=== PATIENT | male | born 1955 | race Caucasian/White ===

== ENCOUNTER → 2023-09-03 09:28 | Outpatient (CLI) | payer OTHER, SELFPAY | PROVIDERS: Visit Provider Nurse Practitioner Family | DX: T14.8XXA Other injury of unspecified body region, initial encounter (principal) | CPT/HCPCS: 87070; 87075; 87205 ==

== ENCOUNTER → 2023-09-04 08:32 | Outpatient (CLI) | payer OTHER, SELFPAY | PROVIDERS: Referring Provider Nurse Practitioner Family; Visit Provider Surgery | DX: L98.422 Non-pressure chronic ulcer of back with fat layer exposed (principal); E10.622 Type 1 diabetes mellitus with other skin ulcer | CPT/HCPCS: 11042; 99203; 99213 ==

== ENCOUNTER → 2023-09-15 10:15 | Outpatient (CLI) | payer OTHER, SELFPAY | PROVIDERS: PCP Internal Medicine; Referring Provider Nurse Practitioner Family; Visit Provider Surgery | DX: L98.422 Non-pressure chronic ulcer of back with fat layer exposed (principal); E10.622 Type 1 diabetes mellitus with other skin ulcer | CPT/HCPCS: 99213 ==

== ENCOUNTER → 2023-09-17 06:45 | Outpatient (CLI) | payer OTHER, SELFPAY ==
[2023-09-17 08:15] LABS: Hematocrit 42.3 % (41-53); Hemoglobin 14.7 g/dL (13.5-17.5); Mean Corpuscular HGB Conc 34.6 % (30-36); Mean Corpuscular Hemoglobin 30.1 PG (26-34); Mean Corpuscular Volume 86.8 fL (80-100); Platelet Count 293 X10^3/uL (150-400); Red Blood Cell Count 4.88 X10^6/uL (4.5-5.9); Red Cell Distribution Width 14.1 % (11.6-14.8); White Blood Cell Count 7.5 X10^3/uL (4.5-11.0)
[2023-09-17 08:25] LABS: Hemoglobin A1C% w Est Avg Glu 7.3 % (4.0-6.0)
[2023-09-17 08:37] LABS: Alanine Aminotransferase 21 IU/L (<50); Albumin 3.8 g/dL (3.5-5.0); Albumin Globulin Ratio 1.7 (1.0-2.8); Alkaline Phosphatase 105 U/L (38-126); Aspartate Aminotransferase 30 IU/L (17-59); BUN Creatinine Ratio 17.6 (6-22); Bilirubin Total 1.2 mg/dL (0.2-1.3); Blood Urea Nitrogen 18 mg/dL (9-20); Calcium 9.1 mg/dL (8.4-10.2); Carbon Dioxide 28 mmol/L (22-32); Chloride 103 mmol/L (98-107); Cholesterol 148 mg/dL (140-199); Estimated Glomerular Filt Rate > 60 mL/min (>60); Globulin 2.3 g/dL (1.7-4.1); Glucose 204 mg/dL (80-110); HDL Cholesterol 61 mg/dL (40-60); HEMOLYSIS < 15 (0-50); LDL Cholesterol Calculated 68 mg/dL (<100); Potassium 4.7 mmol/L (3.4-5.1); Sodium 137 mmol/L (137-145); Total Protein 6.1 g/dL (6.3-8.2); Triglycerides 96 mg/dL (35-150)
[2023-09-17 08:54] LABS: Creatinine Urine Random 122.7 mg/dL
[2023-09-17 08:59] LABS: Microalbumi Creatinin Ratio Ur 8.1 ug/mg CR (<30)
[2023-09-17 09:03] LABS: Prostate Specific Antigen 1.76 ng/mL (0.10-4.00)
== END ==
PROVIDERS: PCP Internal Medicine; Referring Provider Internal Medicine; Visit Provider Internal Medicine
DX: N40.1 Benign prostatic hyperplasia with lower urinary tract symptoms (principal); N13.8 Other obstructive and reflux uropathy; E78.2 Mixed hyperlipidemia; I10 Essential (primary) hypertension; E10.69 Type 1 diabetes mellitus with other specified complication; E78.5 Hyperlipidemia, unspecified
CPT/HCPCS: 36415; 80053; 80061; 82043; 82570; 83036; 84153; 85027

== ENCOUNTER → 2023-09-29 08:44 | Outpatient (CLI) | payer OTHER, SELFPAY | PROVIDERS: PCP Internal Medicine; Referring Provider Nurse Practitioner Family; Visit Provider Surgery | DX: L98.422 Non-pressure chronic ulcer of back with fat layer exposed (principal); E10.622 Type 1 diabetes mellitus with other skin ulcer | CPT/HCPCS: 99212; 99213 ==

== ENCOUNTER → 2024-01-21 12:20 | Outpatient (CLI) | payer OTHER, SELFPAY ==
--- NOTE | 2024-01-21 | DI.RAD.S_ITS ---
PROCEDURE: XR ANKLE RT MIN 3V INDICATIONS: PAIN TECHNIQUE: 3 views of the ankle were acquired. COMPARISON: None. FINDINGS: Bones: Post ORIF changes are noted in distal fibular shaft. Postfusion changes at tibiotalar joint is seen with near complete bony union. No gross hardware loosening or failure is seen. Osteoarthritic changes are noted throughout rest of the midfoot and hindfoot. No fractures or dislocations. No suspicious bony lesions. Soft tissues: No abnormal soft tissue calcifications. Achilles tendon appears normal. IMPRESSION: Prior fusion of tibiotalar joint with near complete bony union. Prior internal fixation of fibular shaft. No gross hardware loosening or failure. No acute fracture or dislocation. Moderate midfoot and hindfoot joint osteoarthritis. Dictated by: Ted Montano M.D. on 01/21/2024 at 14:38 Approved by: Ted Montano M.D. on 01/21/2024 at 14:39
--- NOTE | 2024-01-21 | DI.RAD.S_ITS ---
PROCEDURE: XR ANKLE LT MIN 3V INDICATIONS: PAIN DUE TO INTERNAL ORTHOPEDIC PROSTHETIC DEVICES TECHNIQUE: 3 views of the ankle were acquired. COMPARISON: None. FINDINGS: Bones: No fractures or dislocations. Osteoarthritic changes are noted throughout midfoot and hindfoot joints. Ankle mortise is normally aligned. No suspicious bony lesions. Soft tissues: No tibiotalar joint effusion. Achilles tendon appears normal. IMPRESSION: No ankle fracture or dislocation. Ankle mortise is congruent. [id number] midfoot and hindfoot joint osteoarthritis more notably involving tibiotalar joint. Dictated by: Ted Montano M.D. on 01/21/2024 at 14:31 Approved by: Ted Montano M.D. on 01/21/2024 at 14:32
--- NOTE | 2024-01-21 | DI.RAD.S_ITS ---
PROCEDURE: XR FOOT RT MIN 3V INDICATIONS: PAIN TECHNIQUE: 3 views of the foot were acquired. COMPARISON: None. FINDINGS: Bones: Postfusion changes at 1st MTP joint are seen with near complete bony union. Postsurgical changes also noted in tibiotalar joint and distal fibular shaft. No gross hardware loosening or failure. Osteoarthritic changes are noted throughout rest of the right foot. No acute fracture or dislocation. No suspicious bony lesions. Soft tissues: No tibiotalar joint effusion. Achilles tendon appears normal. IMPRESSION: Postsurgical changes in great toe and ankle joints. Osteoarthritic changes throughout rest of the right foot. No acute fracture or dislocation. No gross hardware loosening or failure. Dictated by: Ted Montano M.D. on 01/21/2024 at 14:39 Approved by: Ted Montano M.D. on 01/21/2024 at 14:40
--- NOTE | 2024-01-21 | DI.RAD.S_ITS ---
PROCEDURE: XR FOOT LT MIN 3V INDICATIONS: PAIN DUE TO INTERNAL OTHOPEDIC PROSTHETIC DEVICES TECHNIQUE: 3 views of the foot were acquired. COMPARISON: None. FINDINGS: Bones: There is mild to moderate hallux valgus. Osteoarthritic changes are noted throughout left foot more notably involving 1st MTP joint and 2nd through 5th DIP joints. No fractures or dislocations. No suspicious bony lesions. Soft tissues: No tibiotalar joint effusion. Achilles tendon appears normal. IMPRESSION: [id number] hallux valgus. Left foot osteoarthritis as above. No acute fracture or dislocation. No gross soft tissue abnormalities. Dictated by: Ted Montano M.D. on 01/21/2024 at 14:32 Approved by: Ted Montano M.D. on 01/21/2024 at 14:38
== END ==
PROVIDERS: PCP Internal Medicine; Referring Provider Podiatrist Foot & Ankle Surgery; Visit Provider Podiatrist Foot & Ankle Surgery
DX: T84.84XD Pain due to internal orthopedic prosthetic devices, implants and grafts, subsequent encounter (principal); M20.12 Hallux valgus (acquired), left foot; M19.072 Primary osteoarthritis, left ankle and foot; M19.071 Primary osteoarthritis, right ankle and foot; Z98.1 Arthrodesis status
CPT/HCPCS: 73610; 73630

== ENCOUNTER → 2024-02-02 06:43 | Outpatient (CLI) | payer OTHER, SELFPAY ==
[2024-02-02 08:04] LABS: Hemoglobin A1C% w Est Avg Glu 6.7 % (4.0-6.0)
[2024-02-02 08:22] LABS: BUN Creatinine Ratio 16.5 (6-22); Blood Urea Nitrogen 17 mg/dL (9-20); Calcium 8.8 mg/dL (8.4-10.2); Carbon Dioxide 31 mmol/L (22-32); Chloride 104 mmol/L (98-107); Estimated Glomerular Filt Rate > 60 mL/min (>60); Glucose 155 mg/dL (80-110); HEMOLYSIS < 15 (0-50); Potassium 4.1 mmol/L (3.4-5.1); Sodium 138 mmol/L (137-145)
== END ==
PROVIDERS: PCP Internal Medicine; Referring Provider Internal Medicine; Visit Provider Internal Medicine
DX: E10.69 Type 1 diabetes mellitus with other specified complication (principal); E78.5 Hyperlipidemia, unspecified
CPT/HCPCS: 36415; 80048; 83036

== ENCOUNTER → 2024-09-08 17:11 | Outpatient (CLI) | payer OTHER, SELFPAY ==
--- NOTE | 2024-09-08 17:13 | DI.MRI.S_ITS ---
PROCEDURE: MR FOOT RT WO CON INDICATIONS: PAIN IN RT FOOT TECHNIQUE: Multiphasic, multisequence MRI of the forefoot was performed, without intravenous contrast administration. COMPARISON: [facility], CR, XR FOOT RT MIN 3V, 01/21/2024, 12:41. FINDINGS: Image quality: Excellent. Bones and joints: Susceptibility artifact about the 1st metatarsal head, postprocedural. Solid osseous fusion of the 1st metatarsal phalangeal joint. There is mild degenerative changes of the 2nd metatarsophalangeal joint, with mild subchondral marrow edema. Somewhat linear T2 hyperintensity in the 5th metatarsal diaphysis without T1 cord, nonspecific. Moderate degenerative changes at the navicular and cuboid articulation, and the talonavicular articulation. Additional multifocal mild degenerative changes of the midfoot. Susceptibility artifact about the ankle, favoring postprocedural, incompletely visualized. Soft tissues: The visualized plantar fascia is unremarkable. Mild tenosynovitis of the flexor tendon at the master knot of Ivan. The extensor tendon are unremarkable. Severe fatty atrophy of the intrinsic musculature of the foot. T2 hyperintensity of the Lisfranc ligament, likely representing mild sprain. Mild 2nd intermetatarsal bursitis. IMPRESSION: 1. Postprocedure changes in the 1st metatarsal head with solid osseous fusion of the 1st metatarsophalangeal joint. 2. Moderate degenerative changes of the navicular and cuboid articulation, and the talonavicular articulation. Additional mild degenerative changes in the midfoot and the 2nd metatarsophalangeal joint. 3. Severe muscle fatty atrophy. 4. Mild sprain of the Lisfranc ligament. Dictated by: Karla Corley M.D. on 09/09/2024 at 9:41 Approved by: Karla Corley M.D. on 09/09/2024 at 9:51
== END ==
LOC: MRI 17:12
PROVIDERS: PCP Internal Medicine; Referring Provider Podiatrist Foot & Ankle Surgery; Visit Provider Podiatrist Foot & Ankle Surgery
DX: S93.691A Other sprain of right foot, initial encounter (principal); M62.571 Muscle wasting and atrophy, not elsewhere classified, right ankle and foot; G57.61 Lesion of plantar nerve, right lower limb; M79.671 Pain in right foot; Z98.890 Other specified postprocedural states
CPT/HCPCS: 73718

== ENCOUNTER 2024-10-06 05:01 | Inpatient (IN) | payer OTHER, MEDICARE, SELFPAY ==
[2024-10-06] VITALS (18 sets, daily range): BP systolic 137–191; BP diastolic 66–96; PULSE 48–65; RESP 16–22; TEMP 36–36.6; O2SAT 93–98; BMI 28.2; BMI 28.3
--- NOTE | 2024-10-06 05:12 | DI.RAD.S_ITS ---
PROCEDURE: XR CHEST 1V INDICATIONS: MIDEPIGASTRIC PAIN TECHNIQUE: One view of the chest was acquired. COMPARISON: None. FINDINGS: Surgical changes and devices: Right pulse generator. Lungs and pleura: Low lung volumes. No dense consolidation or pleural effusions. Mediastinum: Normal heart size. No free air under hemidiaphragms on this semi-erect view. Bones and chest wall: Degenerative changes IMPRESSION: Low lung volumes. No acute abnormality on this single view study. Agree with preliminary report. Dictated by: Simba Shook M.D. on 10/06/2024 at 7:36 Approved by: Simba Shook M.D. on 10/06/2024 at 7:37
--- NOTE | 2024-10-06 05:12 | EKG_ITS ---
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
--- NOTE | 2024-10-06 05:12 | ED_ITS ---
HPI - Abdominal Pain <Lisa Vincent MD - Last Filed: 10/06/24 17:53> General Chief Complaint: Abdominal Pain Stated Complaint: abd pain Time Seen by Provider: 10/06/24 05:05 History of Present Illness HPI narrative: 69-year-old male with history of type 1 diabetes, GERD, history of seizure disorder (reports 13 years seizure free on lamotrigine) presents by private vehicle from home for approximately 3 hours of severe constant midepigastric burning abdominal pain that does not radiate. Pain woke him up from sleep, not alleviated with Pepto-Bismol or Gas-X. Has never had pain like this before. Denies previous history of abdominal surgeries. Related Data Home Medications Medication Instructions Recorded Confirmed lamotrigine 200 mg tablet 200 mg PO BID 09/03/23 10/06/24 blood sugar diagnostic (Accu-Chek #10 ea 09/15/23 10/06/24 Guide test strips) pantoprazole 20 mg tablet,delayed 20 mg PO BID 04/26/24 10/06/24 release insulin aspart U-100 100 unit/mL See Rx Instructions .Route .COMPLEX 10/06/24 10/06/24 subcutaneous cartridge (Novolog PenFill U-100 Insulin aspart) Previous Rx's Medication Instructions Recorded tamsulosin 0.4 mg capsule 0.8 mg (2 x 0.4 mg) PO BEDTIME 10/27/23 #180 caps lisinopril 20 mg tablet 20 mg PO BID #180 tabs 11/30/23 rosuvastatin 5 mg tablet 5 mg PO DAILY #90 tabs 01/18/24 atenolol 25 mg tablet 25 mg PO DAILY #90 tabs 02/25/24 scopolamine base 1 mg over 3 days 1 patch transdermal Q72H PRN 03/09/24 transdermal patch motion sickness #4 ea sildenafil (pulm.hypertension) 20 20 - 100 mg (1 - 5 x 20 mg) PO 07/18/24 mg tablet DAILY PRN sexual activity #30 tabs Allergies Allergy/AdvReac Type Severity Reaction Status Date / Time codeine AdvReac Mild Nausea Verified 09/09/24 13:11 tramadol AdvReac Mild lower Verified 09/09/24 13:11 seizure threshold Patient History <Lisa Vincent MD - Last Filed: 10/06/24 17:53> Medical History Urinary frequency Nocturia Obstructive sleep apnea Chronic low back pain Overweight Type 1 diabetes mellitus with hyperlipidemia GERD without esophagitis Erectile dysfunction 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 Mixed hyperlipidemia Essential hypertension 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: , 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: Never smoker alcohol intake: never Smoking Status: Never smoker Exam <Lisa Vincent MD - Last Filed: 10/06/24 17:53> Initial Vital Signs Initial Vital Signs: Vital Signs Temperature 97.8 F 10/06/24 05:09 Pulse Rate 58 L 10/06/24 05:09 Respiratory Rate 22 10/06/24 05:09 Blood Pressure 191/96 H 10/06/24 05:09 Pulse Oximetry 97 10/06/24 05:09 Oxygen Delivery Method Room Air 10/06/24 05:09 Const: Awake, alert, uncomfortable, in pain, nontoxic appearing Cardiac: regular rate, regular rhythm RESP: unlabored, clear bilaterally, no wheezing GI: Soft, midepigastric tenderness to deep palpation, no rebound or guarding Skin: Warm, Dry, intact, no rashes Neuro: AO x3, CN II-XII grossly intact, moves all extremities <Leandro Cuevas DO - Last Filed: 10/06/24 09:29> Initial Vital Signs Initial Vital Signs: Vital Signs Temperature 97.8 F 10/06/24 05:09 Pulse Rate 58 L 10/06/24 05:09 Respiratory Rate 22 10/06/24 05:09 Blood Pressure 191/96 H 10/06/24 05:09 Pulse Oximetry 97 10/06/24 05:09 Oxygen Delivery Method Room Air 10/06/24 05:09 Course <Lisa Vincent MD - Last Filed: 10/06/24 17:53> Orders Ordered: Atenolol (Atenolol 25 Mg Tablet) 25 mg PO BEDTIME ELAINA Sodium Chloride (Normal Saline 0.9%) 1,000 mls @ 100 mls/hr IV CONT ELAINA Last Admin: 10/06/24 11:25 Dose: 100 mls/hr Documented By: BARI Dextrose (D10w) 1,000 mls @ 100 mls/hr IV CONT PRN PRN Reason: Hypoglycemia Lamotrigine (Lamotrigine 100 Mg Tablet) 200 mg PO BID [facility] Last Admin: 10/06/24 13:13 Dose: 200 mg Documented By: TIFFANY Lisinopril (Lisinopril 20 Mg Tablet) 20 mg PO BID [facility] Last Admin: 10/06/24 13:13 Dose: 20 mg Documented By: TIFFANY Morphine Sulfate (Morphine 4 Mg/Ml Inj) 4 mg IV PRN PRN PRN Reason: Pain, Moderate (4-6) Last Admin: 10/06/24 07:44 Dose: 4 mg Documented By: MARIA GUADALUPE Morphine Sulfate (Morphine 2 Mg/Ml Inj) 2 mg IV Q2HR PRN PRN Reason: Pain, Moderate (4-6) Last Admin: 10/06/24 15:21 Dose: 2 mg Documented By: TIFFANY Naloxone HCl (Naloxone 0.4 Mg/Ml Vial) 0.2 mg IV Q2MIN PRN PRN Reason: Opiate Reversal Ondansetron HCl (Ondansetron 4 Mg/2 Ml Inj) 4 mg IV Q4HR PRN PRN Reason: nausea Last Admin: 10/06/24 15:23 Dose: 4 mg Documented By: TIFFANY Pantoprazole Sodium (Pantoprazole Dr 20 Mg Tablet) 20 mg PO BID [facility] Last Admin: 10/06/24 13:14 Dose: 20 mg Documented By: TIFFANY Tamsulosin HCl (Tamsulosin 0.4 Mg Capsule) 0.8 mg PO BEDTIME [facility] Discontinued Medications Atenolol (Atenolol 25 Mg Tablet) 25 mg PO DAILY [facility] Last Admin: 10/06/24 14:00 Dose: Not Given Documented By: TIFFANY Hydromorphone HCl (Hydromorphone 0.5 Mg Inj) 0.5 mg IV Q2H PRN PRN Reason: Pain, Severe (7-10) Last Admin: 10/06/24 13:54 Dose: 0.5 mg Documented By: TIFFANY Sodium Chloride (Normal Saline 0.9%) 1,000 mls @ 1,000 mls/hr IV BOLUS ONE Stop: 10/06/24 07:59 Last Infusion: 10/06/24 10:12 Dose: 1,000 mls/hr Documented By: Infusion: 10/06/24 08:45 Dose: 1,000 mls/hr Documented By: MARIA GUADALUPE Infusion: 10/06/24 07:47 Dose: 0 mls/hr Documented By: MARIA GUADALUPE Admin: 10/06/24 07:24 Dose: 1,000 mls/hr Documented By: MARIA GUADALUPE Lorazepam (Lorazepam 2 Mg/Ml Inj) 1 mg IV NOW ONE Stop: 10/06/24 06:55 Last Admin: 10/06/24 07:25 Dose: 1 mg Documented By: MARIA GUADALUPE Morphine Sulfate (Morphine 4 Mg/Ml Inj) 4 mg IV NOW ONE Stop: 10/06/24 05:12 Last Admin: 10/06/24 05:22 Dose: 4 mg Documented By: MADDIE Ondansetron HCl (Ondansetron 4 Mg/2 Ml Inj) 4 mg IV NOW ONE Stop: 10/06/24 05:12 Last Admin: 10/06/24 05:22 Dose: 4 mg Documented By: MADDIE Ondansetron HCl (Ondansetron 4 Mg/2 Ml Inj) 4 mg IV Q8HR PRN PRN Reason: Nausea And Vomiting Vital Signs Vital signs: Vital Signs - 8 hr 10/06/24 05:09 10/06/24 05:53 10/06/24 06:00 Temperature 97.8 F Pulse Rate 58 L 56 L 57 L Respiratory Rate 22 Blood Pressure 191/96 H Pulse Oximetry 97 95 93 Oxygen Delivery Method Room Air 10/06/24 06:06 10/06/24 06:06 10/06/24 06:30 Temperature Pulse Rate 54 L 56 L Respiratory Rate 18 Blood Pressure 152/78 H Pulse Oximetry 94 94 Oxygen Delivery Method Room Air 10/06/24 06:30 10/06/24 07:00 10/06/24 07:00 Temperature Pulse Rate 53 L Respiratory Rate Blood Pressure 139/74 155/80 H Pulse Oximetry 94 Oxygen Delivery Method 10/06/24 07:33 Temperature Pulse Rate 54 L Respiratory Rate Blood Pressure Pulse Oximetry 98 Oxygen Delivery Method <Leandro Cuevas DO - Last Filed: 10/06/24 09:29> Orders Ordered: Atenolol (Atenolol 25 Mg Tablet) 25 mg PO BEDTIME ELAINA Sodium Chloride (Normal Saline 0.9%) 1,000 mls @ 100 mls/hr IV CONT ELAINA Last Admin: 10/06/24 11:25 Dose: 100 mls/hr Documented By: BARI Dextrose (D10w) 1,000 mls @ 100 mls/hr IV CONT PRN PRN Reason: Hypoglycemia Lamotrigine (Lamotrigine 100 Mg Tablet) 200 mg PO BID [facility] Last Admin: 10/06/24 13:13 Dose: 200 mg Documented By: TIFFANY Lisinopril (Lisinopril 20 Mg Tablet) 20 mg PO BID [facility] Last Admin: 10/06/24 13:13 Dose: 20 mg Documented By: TIFFANY Morphine Sulfate (Morphine 4 Mg/Ml Inj) 4 mg IV PRN PRN PRN Reason: Pain, Moderate (4-6) Last Admin: 10/06/24 07:44 Dose: 4 mg Documented By: MARIA GUADALUPE Morphine Sulfate (Morphine 2 Mg/Ml Inj) 2 mg IV Q2HR PRN PRN Reason: Pain, Moderate (4-6) Last Admin: 10/06/24 15:21 Dose: 2 mg Documented By: TIFFANY Naloxone HCl (Naloxone 0.4 Mg/Ml Vial) 0.2 mg IV Q2MIN PRN PRN Reason: Opiate Reversal Ondansetron HCl (Ondansetron 4 Mg/2 Ml Inj) 4 mg IV Q4HR PRN PRN Reason: nausea Last Admin: 10/06/24 15:23 Dose: 4 mg Documented By: TIFFANY Pantoprazole Sodium (Pantoprazole Dr 20 Mg Tablet) 20 mg PO BID [facility] Last Admin: 10/06/24 13:14 Dose: 20 mg Documented By: TIFFANY Tamsulosin HCl (Tamsulosin 0.4 Mg Capsule) 0.8 mg PO BEDTIME [facility] Discontinued Medications Atenolol (Atenolol 25 Mg Tablet) 25 mg PO DAILY [facility] Last Admin: 10/06/24 14:00 Dose: Not Given Documented By: TIFFANY Hydromorphone HCl (Hydromorphone 0.5 Mg Inj) 0.5 mg IV Q2H PRN PRN Reason: Pain, Severe (7-10) Last Admin: 10/06/24 13:54 Dose: 0.5 mg Documented By: TIFFANY Sodium Chloride (Normal Saline 0.9%) 1,000 mls @ 1,000 mls/hr IV BOLUS ONE Stop: 10/06/24 07:59 Last Infusion: 10/06/24 10:12 Dose: 1,000 mls/hr Documented By: Infusion: 10/06/24 08:45 Dose: 1,000 mls/hr Documented By: MARIA GUADALUPE Infusion: 10/06/24 07:47 Dose: 0 mls/hr Documented By: MARIA GUADALUPE Admin: 10/06/24 07:24 Dose: 1,000 mls/hr Documented By: MARIA GUADALUPE Lorazepam (Lorazepam 2 Mg/Ml Inj) 1 mg IV NOW ONE Stop: 10/06/24 06:55 Last Admin: 10/06/24 07:25 Dose: 1 mg Documented By: MARIA GUADALUPE Morphine Sulfate (Morphine 4 Mg/Ml Inj) 4 mg IV NOW ONE Stop: 10/06/24 05:12 Last Admin: 10/06/24 05:22 Dose: 4 mg Documented By: MADDIE Ondansetron HCl (Ondansetron 4 Mg/2 Ml Inj) 4 mg IV NOW ONE Stop: 10/06/24 05:12 Last Admin: 10/06/24 05:22 Dose: 4 mg Documented By: MADDIE Ondansetron HCl (Ondansetron 4 Mg/2 Ml Inj) 4 mg IV Q8HR PRN PRN Reason: Nausea And Vomiting Vital Signs Vital signs: Vital Signs - 8 hr 10/06/24 05:09 10/06/24 05:53 10/06/24 06:00 Temperature 97.8 F Pulse Rate 58 L 56 L 57 L Respiratory Rate 22 Blood Pressure 191/96 H Pulse Oximetry 97 95 93 Oxygen Delivery Method Room Air 10/06/24 06:06 10/06/24 06:06 10/06/24 06:30 Temperature Pulse Rate 54 L 56 L Respiratory Rate 18 Blood Pressure 152/78 H Pulse Oximetry 94 94 Oxygen Delivery Method Room Air 10/06/24 06:30 10/06/24 07:00 10/06/24 07:00 Temperature Pulse Rate 53 L Respiratory Rate Blood Pressure 139/74 155/80 H Pulse Oximetry 94 Oxygen Delivery Method 10/06/24 07:33 Temperature Pulse Rate 54 L Respiratory Rate Blood Pressure Pulse Oximetry 98 Oxygen Delivery Method MDM - Abdominal Pain <Lisa Vincent MD - Last Filed: 10/06/24 17:53> Lab Data 10/06/24 05:15 10/06/24 05:15 Labs: Lab Results 10/06/24 10/06/24 Range/Units 05:13 05:15 WBC 7.5 (4.5-11.0) X10^3/uL RBC 5.24 (4.5-5.9) X10^6/uL Hgb 15.2 (13.5-17.5) g/dL Hct 45.0 (41-53) % MCV 85.8 (80-100) fL MCH 29.0 (26-34) PG MCHC 33.8 (30-36) % RDW 14.1 (11.6-14.8) % Plt Count 243 (150-400) X10^3/uL Neut % (Auto) 59.2 (50-75) % Lymph % (Auto) 29.6 (25-40) % Boyle % (Auto) 7.1 (3-14) % Eos % (Auto) 3.5 (2-4) % Baso % (Auto) 0.6 (0-2) % Neut # (Auto) 4400 (6302-6535) /uL Lymph # (Auto) 2200 (7426-1246) /uL Boyle # (Auto) 500 (0-900) /uL Eos # (Auto) 300 (0-450) /uL Baso # (Auto) 0 (0-100) /uL PT 11.1 (9.4-12.5) SECONDS INR 1.0 (0.9-1.3) Sodium 141 (137-145) mmol/L Potassium 4.0 (3.4-5.1) mmol/L Chloride 106 (98-107) mmol/L Carbon Dioxide 32 (22-32) mmol/L BUN 20 (9-20) mg/dL Creatinine 1.22 (0.66-1.25) mg/dL Estimated GFR > 60 (>60) mL/min BUN/Creatinine Ratio 16.4 (6-22) Glucose 149 H (80-110) mg/dL Lactate 0.8 (0.7-2.1) mmol/L Calcium 9.2 (8.4-10.2) mg/dL Magnesium 1.9 (1.6-2.3) mg/dL Total Bilirubin 1.4 H (0.2-1.3) mg/dL AST 93 H (17-59) IU/L ALT 37 (<50) IU/L Alkaline Phosphatase 119 (38-126) U/L Total Creatine Kinase 128 (55-170) U/L Troponin I < 0.012 (0.01-0.034) ng/mL Total Protein 6.7 (6.3-8.2) g/dL Albumin 4.2 (3.5-5.0) g/dL Globulin 2.5 (1.7-4.1) g/dL Albumin/Globulin Ratio 1.7 (1.0-2.8) Lipase 3151 H (23-300) U/L Urine RBC None seen (0-5/HPF) Urine WBC None seen (0-5/HPF) Ur Squamous Epith Cells 0-1 /hpf (0-5/HPF) Urine Bacteria None seen (None) Ur Culture Indicated? Cult not indicated Vol Urine Centrifuged 10ml (spun) Point of care testing: Urine Dip Bedside Urine Glucose Negative Bedside Urine Bilirubin - Negative Bedside Urine Ketone - Negative Urine Specific [place] 1.020 Bedside Urine Occult Blood - Negative Bedside Urine pH 6.0 Bedside Urine Protein +/- 15 Bedside Urine Urobilinogen - Negative Bedside Urine Nitrite - Negative Bedside Urine Leukocytes - Negative Esterase Imaging Data CT scan - abdomen/pelvis: Radiologist's Impression: PROCEDURE: CT ABDOMEN PELVIS W CON INDICATIONS: SEVERE MIDEPIGASTRIC ABD PAIN TECHNIQUE: After the administration of intravenous contrast, axial sections acquired from the lung bases to the pubic symphysis. Coronal and sagittal reformats were performed. For radiation dose reduction, the following was used: automated exposure control, adjustment of mA and/or kV according to patient size. COMPARISON: [facility], , US ABDOMEN LIMITED, 10/06/2024, 6:30. FINDINGS: Image quality: Diagnostic Lower chest: Basal atelectasis. Trace hiatal hernia. Normal heart size. Liver: Unremarkable Gallbladder and biliary system: Distended. Cholelithiasis. This is better assessed on ultrasound. Pancreas: [id number] parenchymal atrophy. Moderate peripancreatic edema. Spleen: Nonenlarged Adrenals: No discrete nodules Kidneys: No solid mass or hydronephrosis Vessels and lymph nodes: No abdominal aortic aneurysm. No pathologic lymph nodes by size criteria. Bowel and peritoneum: Mild duodenal wall thickening possibly reactive adjacent to the pancreatitis inflammation. There is a moderate rectal stool ball. Colonic diverticula are seen. No pathologic ascites or drainable abscess. Body wall: Tiny fat containing periumbilical hernia Pelvis: Bladder is unremarkable. Prostate is unremarkable on limited CT evaluation Bones: There are degenerative changes. IMPRESSION: Moderate peripancreatic inflammation compatible with acute interstitial pancreatitis. No necrotic pancreatic parenchyma however, there is background atrophy. Cholelithiasis and gallbladder distention. Other findings above. Agree with prelim report. PROCEDURE: MR ABDOMEN WO CON INDICATIONS: GALLSTONE PANCREATITIS TECHNIQUE: Coronal HASTE through the abdomen, axial 2-D FLASH in- and [id number], and breath-hold T2 FSE with fat saturation through the biliary system and pancreas. Oblique coronal and axial thin-slice HASTE, radial thick-slab HASTE centered on the extrahepatic bile ducts. COMPARISON: [facility], US, US ABDOMEN LIMITED, 10/06/2024, 6:30. [facility], CT, CT ABDOMEN PELVIS W CON, 10/06/2024, 5:18. FINDINGS: Image quality: Diagnostic. Gallbladder: Distended. No wall thickening appreciated. Small gallstone. Biliary ducts: No biliary dilation. No choledocholithiasis. Pancreas: No ductal dilation. Peripancreatic edema. No loculated fluid collection. Pancreas is atrophic. OTHER: Lung bases: No pleural effusion. Liver: No solid mass. Spleen: Size is within normal limits. Adrenal Glands: No adrenal nodules. Kidneys and Ureters: No hydronephrosis. No solid mass. No complex renal cystic lesion which requires follow up. Stomach and Bowel: Normal colonic caliber, without significant wall thickening. Peritoneum: No abnormal intraperitoneal fluid. No free air. Ventral Wall: No hernia. Abdominal Nodes: No retroperitoneal or mesenteric adenopathy by size criteria. Vessels: Aorta and inferior vena cava are normal in size. Bones: No aggressive osseous abnormality. Multilevel lumbar spine hardware. IMPRESSION: 1. No choledocholithiasis demonstrated. No biliary or pancreatic ductal dilatation. 2. Peripancreatic edema in keeping with acute interstitial edematous pancreatitis. No loculated fluid collection at this time. 3. Small gallstone. Dictated by: Alfredito Lyon M.D. on 10/06/2024 at 8:59 Approved by: Alfredito Lyon M.D. on 10/06/2024 at 9:07 MDM Narrative Medical decision making narrative: Midepigastric abdominal pain. No peritoneal signs. IV pain medications, nausea medications ordered. Pain well controlled with morphine. Laboratory work shows WBC count 7.5, hemoglobin 15.2, platelet count 243, sodium 141, potassium 4.0, creatinine 1.22, T bili 1.4, AST 93, ALT 37, alkaline phosphatase 119, troponin undetectable. CT of the abdomen and pelvis shows mild biliary ductal dilation, cholelithiasis seen, pancreatitis seen. Probable gallstone pancreatitis. US shows normal duct size, no obvious retained stone. Case discussed with on-call General surgery Dr. Bettencourt, who requested an MRCP to determine if patient can stay at [facility] versus need transfer for ERCP. Care of patient signed to Dr. Cuevas at 0700 Dr cuevas: Received turned over. Review patient's history and physical exam. Patient was a slight elevation in his bilirubin. He was cholelithiasis without signs of acute cholecystitis. MRCP does not show choledocholithiasis. Discussed the case with Dr. Bettencourt on-call for General surgery who stated that he would see the patient has a inpatient to discussed a cholecystectomy. Patient can be admitted to the medicine service for his pancreatitis. Discussed the case with Dr. Espana hospitalist on-call who will admit. Discussed the need for admission with the patient and his . They expressed understanding and agreement with the plan. <Leandro Cuevas, DO - Last Filed: 10/06/24 09:29> Lab Data Attestation: I reviewed the patient's lab results. Labs: Lab Results 10/06/24 10/06/24 Range/Units 05:13 05:15 WBC 7.5 (4.5-11.0) X10^3/uL RBC 5.24 (4.5-5.9) X10^6/uL Hgb 15.2 (13.5-17.5) g/dL Hct 45.0 (41-53) % MCV 85.8 (80-100) fL MCH 29.0 (26-34) PG MCHC 33.8 (30-36) % RDW 14.1 (11.6-14.8) % Plt Count 243 (150-400) X10^3/uL Neut % (Auto) 59.2 (50-75) % Lymph % (Auto) 29.6 (25-40) % Boyle % (Auto) 7.1 (3-14) % Eos % (Auto) 3.5 (2-4) % Baso % (Auto) 0.6 (0-2) % Neut # (Auto) 4400 (8649-9970) /uL Lymph # (Auto) 2200 (7998-1276) /uL Boyle # (Auto) 500 (0-900) /uL Eos # (Auto) 300 (0-450) /uL Baso # (Auto) 0 (0-100) /uL PT 11.1 (9.4-12.5) SECONDS INR 1.0 (0.9-1.3) Sodium 141 (137-145) mmol/L Potassium 4.0 (3.4-5.1) mmol/L Chloride 106 (98-107) mmol/L Carbon Dioxide 32 (22-32) mmol/L BUN 20 (9-20) mg/dL Creatinine 1.22 (0.66-1.25) mg/dL Estimated GFR > 60 (>60) mL/min BUN/Creatinine Ratio 16.4 (6-22) Glucose 149 H (80-110) mg/dL Lactate 0.8 (0.7-2.1) mmol/L Calcium 9.2 (8.4-10.2) mg/dL Magnesium 1.9 (1.6-2.3) mg/dL Total Bilirubin 1.4 H (0.2-1.3) mg/dL AST 93 H (17-59) IU/L ALT 37 (<50) IU/L Alkaline Phosphatase 119 (38-126) U/L Total Creatine Kinase 128 (55-170) U/L Troponin I < 0.012 (0.01-0.034) ng/mL Total Protein 6.7 (6.3-8.2) g/dL Albumin 4.2 (3.5-5.0) g/dL Globulin 2.5 (1.7-4.1) g/dL Albumin/Globulin Ratio 1.7 (1.0-2.8) Lipase 3151 H (23-300) U/L Urine RBC None seen (0-5/HPF) Urine WBC None seen (0-5/HPF) Ur Squamous Epith Cells 0-1 /hpf (0-5/HPF) Urine Bacteria None seen (None) Ur Culture Indicated? Cult not indicated Vol Urine Centrifuged 10ml (spun) Point of care testing: Urine Dip Bedside Urine Glucose Negative Bedside Urine Bilirubin - Negative Bedside Urine Ketone - Negative Urine Specific [place] 1.020 Bedside Urine Occult Blood - Negative Bedside Urine pH 6.0 Bedside Urine Protein +/- 15 Bedside Urine Urobilinogen - Negative Bedside Urine Nitrite - Negative Bedside Urine Leukocytes - Negative Esterase Imaging Data MRCP: Radiologist's Impression: PROCEDURE: MR ABDOMEN WO CON INDICATIONS: GALLSTONE PANCREATITIS TECHNIQUE: Coronal HASTE through the abdomen, axial 2-D FLASH in- and [id number], and breath-hold T2 FSE with fat saturation through the biliary system and pancreas. Oblique coronal and axial thin-slice HASTE, radial thick-slab HASTE centered on the extrahepatic bile ducts. COMPARISON: [facility], US, US ABDOMEN LIMITED, 10/06/2024, 6:30. [facility], CT, CT ABDOMEN PELVIS W CON, 10/06/2024, 5:18. FINDINGS: Image quality: Diagnostic. Gallbladder: Distended. No wall thickening appreciated. Small gallstone. Biliary ducts: No biliary dilation. No choledocholithiasis. Pancreas: No ductal dilation. Peripancreatic edema. No loculated fluid collection. Pancreas is atrophic. OTHER: Lung bases: No pleural effusion. Liver: No solid mass. Spleen: Size is within normal limits. Adrenal Glands: No adrenal nodules. Kidneys and Ureters: No hydronephrosis. No solid mass. No complex renal cystic lesion which requires follow up. Stomach and Bowel: Normal colonic caliber, without significant wall thickening. Peritoneum: No abnormal intraperitoneal fluid. No free air. Ventral Wall: No hernia. Abdominal Nodes: No retroperitoneal or mesenteric adenopathy by size criteria. Vessels: Aorta and inferior vena cava are normal in size. Bones: No aggressive osseous abnormality. Multilevel lumbar spine hardware. IMPRESSION: 1. No choledocholithiasis demonstrated. No biliary or pancreatic ductal dilatation. 2. Peripancreatic edema in keeping with acute interstitial edematous pancreatitis. No loculated fluid collection at this time. 3. Small gallstone. US - abdomen: Radiologist's Impression: PROCEDURE: US ABDOMEN LIMITED INDICATIONS: PANCREATITIS, ELEVATED LIVER ENZYMES TECHNIQUE: Real-time focused scanning was performed of the abdomen, with image documentation. COMPARISON: [facility], CT, CT ABDOMEN PELVIS W CON, 10/06/2024, 5:18. FINDINGS: No sonographic [place] sign. Non mobile gallstones are seen. No significant wall thickening. CBD measures 6 millimeters, upper limit of normal. Liver measures 18 centimeters. IMPRESSION: Cholelithiasis without sonographic [place] sign to suggest acute cholecystitis by ultrasound. Agree with prelim report. Chest x-ray: Radiologist's Impression: PROCEDURE: XR CHEST 1V INDICATIONS: MIDEPIGASTRIC PAIN TECHNIQUE: One view of the chest was acquired. COMPARISON: None. FINDINGS: Surgical changes and devices: Right pulse generator. Lungs and pleura: Low lung volumes. No dense consolidation or pleural effusions. Mediastinum: Normal heart size. No free air under hemidiaphragms on this semi- erect view. Bones and chest wall: Degenerative changes IMPRESSION: Low lung volumes. No acute abnormality on this single view study. Agree with preliminary report. CT scan - abdomen/pelvis: Radiologist's Impression: PROCEDURE: CT ABDOMEN PELVIS W CON INDICATIONS: SEVERE MIDEPIGASTRIC ABD PAIN TECHNIQUE: After the administration of intravenous contrast, axial sections acquired from the lung bases to the pubic symphysis. Coronal and sagittal reformats were performed. For radiation dose reduction, the following was used: automated exposure control, adjustment of mA and/or kV according to patient size. COMPARISON: [facility], , US ABDOMEN LIMITED, 10/06/2024, 6:30. FINDINGS: Image quality: Diagnostic Lower chest: Basal atelectasis. Trace hiatal hernia. Normal heart size. Liver: Unremarkable Gallbladder and biliary system: Distended. Cholelithiasis. This is better assessed on ultrasound. Pancreas: [id number] parenchymal atrophy. Moderate peripancreatic edema. Spleen: Nonenlarged Adrenals: No discrete nodules Kidneys: No solid mass or hydronephrosis Vessels and lymph nodes: No abdominal aortic aneurysm. No pathologic lymph nodes by size criteria. Bowel and peritoneum: Mild duodenal wall thickening possibly reactive adjacent to the pancreatitis inflammation. There is a moderate rectal stool ball. Colonic diverticula are seen. No pathologic ascites or drainable abscess. Body wall: Tiny fat containing periumbilical hernia Pelvis: Bladder is unremarkable. Prostate is unremarkable on limited CT evaluation Bones: There are degenerative changes. IMPRESSION: Moderate peripancreatic inflammation compatible with acute interstitial pancreatitis. No necrotic pancreatic parenchyma however, there is background atrophy. Cholelithiasis and gallbladder distention. Other findings above. Agree with prelim report. MDM Narrative Medical decision making narrative: Midepigastric abdominal pain. No peritoneal signs. IV pain medications, nausea medications ordered. Pain well controlled with morphine. Laboratory work shows WBC count 7.5, hemoglobin 15.2, platelet count 243, sodium 141, potassium 4.0, creatinine 1.22, T bili 1.4, AST 93, ALT 37, alkaline phosphatase 119, troponin undetectable. CT of the abdomen and pelvis shows mild biliary ductal dilation, cholelithiasis seen, pancreatitis seen. Probable gallstone pancreatitis. US shows normal duct size, no obvious retained stone. Case discussed with on-call General surgery Dr. Bettencourt, who requested an MRCP to determine if patient can stay at [facility] versus need transfer for ERCP. Dr cuevas: Received turned over. Review patient's history and physical exam. Patient was a slight elevation in his bilirubin. He was cholelithiasis without signs of acute cholecystitis. MRCP does not show choledocholithiasis. Discussed the case with Dr. Bettencourt on-call for General surgery who stated that he would see the patient has a inpatient to discussed a cholecystectomy. Patient can be admitted to the medicine service for his pancreatitis. Discussed the case with Dr. Espana hospitalist on-call who will admit. Discussed the need for admission with the patient and his . They expressed understanding and agreement with the plan. Discharge Plan Departure Patient Disposition: Admitted As Inpatient Clinical Impression: Pancreatitis, Cholelithiasis Admit Date/Time: 10/06/24 09:28 Admit Provider: Tyson Espana
[2024-10-06] MEDS: MORPHINE 4 MG/ML INJ IV ×2 (05:22→07:44)
[2024-10-06] MEDS: ONDANSETRON 4 MG/2 ML INJ IV ×2 (05:22→15:23)
[2024-10-06 05:26] LABS: Add Manual Diff / Slide Review NO; Basophils Absolute Auto 0 /uL (0-100); Basophils Percent Auto 0.6 % (0-2); Eosinophils Absolute Auto 300 /uL (0-450); Eosinophils Percent Auto 3.5 % (2-4); Hemoglobin 15.2 g/dL (13.5-17.5); Lymphocytes Absolute Auto 2200 /uL (1100-4500); Lymphocytes Percent Auto 29.6 % (25-40); Mean Corpuscular HGB Conc 33.8 % (30-36); Mean Corpuscular Volume 85.8 fL (80-100); Monocytes Absolute Auto 500 /uL (0-900); Monocytes Percent Auto 7.1 % (3-14); Neutrophils Absolute Auto 4400 /uL (1500-7000); Neutrophils Percent Auto 59.2 % (50-75); Platelet Count 243 X10^3/uL (150-400); Red Blood Cell Count 5.24 X10^6/uL (4.5-5.9); Red Cell Distribution Width 14.1 % (11.6-14.8); White Blood Cell Count 7.5 X10^3/uL (4.5-11.0)
--- NOTE | 2024-10-06 05:26 | PC.NURSE ---
Pt taken to imaging in stretcher with tech
[2024-10-06 05:34] LABS: Prothrombin Time 11.1 SECONDS (9.4-12.5)
[2024-10-06 05:38] LABS: Creatine Kinase 128 U/L (55-170); Lactate (Lactic Acid) 0.8 mmol/L (0.7-2.1)
[2024-10-06 05:39] LABS: Alanine Aminotransferase 37 IU/L (<50); Albumin 4.2 g/dL (3.5-5.0); Albumin Globulin Ratio 1.7 (1.0-2.8); Alkaline Phosphatase 119 U/L (38-126); Aspartate Aminotransferase 93 IU/L (17-59); BUN Creatinine Ratio 16.4 (6-22); Bilirubin Total 1.4 mg/dL (0.2-1.3); Blood Urea Nitrogen 20 mg/dL (9-20); Calcium 9.2 mg/dL (8.4-10.2); Carbon Dioxide 32 mmol/L (22-32); Chloride 106 mmol/L (98-107); Estimated Glomerular Filt Rate > 60 mL/min (>60); Globulin 2.5 g/dL (1.7-4.1); Glucose 149 mg/dL (80-110); HEMOLYSIS 18 (0-50); Magnesium 1.9 mg/dL (1.6-2.3); Sodium 141 mmol/L (137-145); Total Protein 6.7 g/dL (6.3-8.2)
[2024-10-06 05:46] LABS: Bacteria Urine None Seen; Culture Indicated Urine Cult Not Indicated; RBC Urine None Seen (0-5/HPF); Squamous Epithelial Cell Urine 0-1 /HPF (0-5/HPF); Urine Volume 10mL (spun); WBC Urine None Seen (0-5/HPF)
[2024-10-06 05:46] LABS: Lipase 3151 U/L (23-300)
[2024-10-06 05:51] LABS: Troponin I < 0.012 ng/mL (0.01-0.034)
--- NOTE | 2024-10-06 06:23 | DI.US.S_ITS ---
PROCEDURE: US ABDOMEN LIMITED INDICATIONS: PANCREATITIS, ELEVATED LIVER ENZYMES TECHNIQUE: Real-time focused scanning was performed of the abdomen, with image documentation. COMPARISON: [facility], CT, CT ABDOMEN PELVIS W CON, 10/06/2024, 5:18. FINDINGS: No sonographic [place] sign. Non mobile gallstones are seen. No significant wall thickening. CBD measures 6 millimeters, upper limit of normal. Liver measures 18 centimeters. IMPRESSION: Cholelithiasis without sonographic [place] sign to suggest acute cholecystitis by ultrasound. Agree with prelim report. Dictated by: Simba Shook M.D. on 10/06/2024 at 7:37 Approved by: Simba Shook M.D. on 10/06/2024 at 7:39
--- NOTE | 2024-10-06 06:32 | PC.NURSE ---
US at bedside
--- NOTE | 2024-10-06 06:54 | DI.MRI.S_ITS ---
PROCEDURE: MR ABDOMEN WO CON INDICATIONS: GALLSTONE PANCREATITIS TECHNIQUE: Coronal HASTE through the abdomen, axial 2-D FLASH in- and [id number], and breath-hold T2 FSE with fat saturation through the biliary system and pancreas. Oblique coronal and axial thin-slice HASTE, radial thick-slab HASTE centered on the extrahepatic bile ducts. COMPARISON: [facility], US, US ABDOMEN LIMITED, 10/06/2024, 6:30. [facility], CT, CT ABDOMEN PELVIS W CON, 10/06/2024, 5:18. FINDINGS: Image quality: Diagnostic. Gallbladder: Distended. No wall thickening appreciated. Small gallstone. Biliary ducts: No biliary dilation. No choledocholithiasis. Pancreas: No ductal dilation. Peripancreatic edema. No loculated fluid collection. Pancreas is atrophic. OTHER: Lung bases: No pleural effusion. Liver: No solid mass. Spleen: Size is within normal limits. Adrenal Glands: No adrenal nodules. Kidneys and Ureters: No hydronephrosis. No solid mass. No complex renal cystic lesion which requires follow up. Stomach and Bowel: Normal colonic caliber, without significant wall thickening. Peritoneum: No abnormal intraperitoneal fluid. No free air. Ventral Wall: No hernia. Abdominal Nodes: No retroperitoneal or mesenteric adenopathy by size criteria. Vessels: Aorta and inferior vena cava are normal in size. Bones: No aggressive osseous abnormality. Multilevel lumbar spine hardware. IMPRESSION: 1. No choledocholithiasis demonstrated. No biliary or pancreatic ductal dilatation. 2. Peripancreatic edema in keeping with acute interstitial edematous pancreatitis. No loculated fluid collection at this time. 3. Small gallstone. Dictated by: Alfredito Lyon M.D. on 10/06/2024 at 8:59 Approved by: Alfredito Lyon M.D. on 10/06/2024 at 9:07
[2024-10-06] MEDS: SODIUM CHLORIDE 0.9% 1,000 ML 1000 ML IV (07:24)
[2024-10-06] MEDS: LORazepam 2 MG/ML INJ 1 MG IV (07:25)
--- NOTE | 2024-10-06 09:30 | P.HP_ITS ---
History of Present Illness History of Present Illness Date Patient Seen: 10/06/24 Chief complaint: abd pain Narrative: The patient is a 69-year-old male who presented with acute abdominal pain. Has a history of type 1 diabetes which is insulin dependent, GERD, and seizure disorder. In the ED, he was found to have epigastric pain. He was no history of abdominal surgeries. Laboratory evaluation indicated elevated lipase and abnormal liver function tests. Imaging was consistent with pancreatitis. An MRCP was obtained to rule out common bile duct stone and was negative for dilation or stone. Case was discussed with General surgery, the patient will be admitted for gallstone pancreatitis and possible delayed lap laparoscopic cholecystectomy. The patient has had no recent symptoms and denies a history of gallbladder attacks. This morning he awoke at 3 in the morning with severe epigastric pain. The pain as progressive and there was some dyspepsia with a. It did not respond to Tums, or Pepto-Bismol. No recent vomiting, or diarrhea. Rarely drinks alcohol. He was no history of elevated triglycerides. Pain medications in the ED have helped. 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: Never smoker alcohol intake: never Meds Home Medications and Allergies Home Medications Medication Instructions Recorded Confirmed Type insulin aspart U-100 100 unit/mL SUBCUT 09/03/23 09/09/24 History subcutaneous solution lamotrigine 200 mg tablet 200 mg PO BID 09/03/23 10/06/24 History blood sugar diagnostic (Accu-Chek #10 ea 09/15/23 10/06/24 History Guide test strips) tamsulosin 0.4 mg capsule 0.8 mg (2 x 0.4 mg) PO BEDTIME 10/27/23 10/06/24 Rx #180 caps lisinopril 20 mg tablet 20 mg PO BID #180 tabs 11/30/23 10/06/24 Rx rosuvastatin 5 mg tablet 5 mg PO DAILY #90 tabs 01/18/24 10/06/24 Rx atenolol 25 mg tablet 25 mg PO DAILY #90 tabs 02/25/24 10/06/24 Rx scopolamine base 1 mg over 3 days 1 patch transdermal Q72H PRN 03/09/24 10/06/24 Rx transdermal patch motion sickness #4 ea pantoprazole 20 mg tablet,delayed 20 mg PO BID 04/26/24 10/06/24 History release sildenafil (pulm.hypertension) 20 20 - 100 mg (1 - 5 x 20 mg) PO 07/18/24 10/06/24 Rx mg tablet DAILY PRN sexual activity #30 tabs Allergies Allergy/AdvReac Type Severity Reaction Status Date / Time codeine AdvReac Mild Nausea Verified 09/09/24 13:11 tramadol AdvReac Mild lower Verified 09/09/24 13:11 seizure threshold Review of Systems Review of Systems Narrative: All else reviewed and otherwise unremarkable except as noted in the history and physical. Exam Vital Signs (past 8 hours): - 10/06/24 05:09 10/06/24 05:53 10/06/24 06:00 Temperature 97.8 F Pulse Rate 58 L 56 L 57 L Respiratory Rate 22 Blood Pressure 191/96 H Pulse Oximetry 97 95 93 Oxygen Delivery Method Room Air 10/06/24 06:06 10/06/24 06:06 10/06/24 06:30 Temperature Pulse Rate 54 L 56 L Respiratory Rate 18 Blood Pressure 152/78 H Pulse Oximetry 94 94 Oxygen Delivery Method Room Air 10/06/24 06:30 10/06/24 07:00 10/06/24 07:00 Temperature Pulse Rate 53 L Respiratory Rate Blood Pressure 139/74 155/80 H Pulse Oximetry 94 Oxygen Delivery Method 10/06/24 07:33 Temperature Pulse Rate 54 L Respiratory Rate Blood Pressure Pulse Oximetry 98 Oxygen Delivery Method Oxygen Delivery Method Room Air Narrative Exam Narrative: NAD, alert and oriented, fluent speech, calm. Normocephalic skull, EOMI, anicteric sclera, symmetric pupils. Oropharynx unremarkable, no droop. Neck supple, midline trachea, no adenopathy. Lungs clear, normal rate and effort. Heart regular, no murmur gallop or rub. Abdomen is soft, non distended and it was notable for tenderness in the epigastric region. When palpated he was pain that radiates to his back. Extremities are free of edema. Skin is free of rash or lesions. Joints are not swollen or deformed. Judgment appears to be normal. Objective Imaging Multiple studies:: Radiologist's impression: CT abdomen: IMPRESSION: Moderate peripancreatic inflammation compatible with acute interstitial pancreatitis. No necrotic pancreatic parenchyma however, there is background atrophy. Cholelithiasis and gallbladder distention. Ultrasound abdomen: MPRESSION: Cholelithiasis without sonographic [place] sign to suggest acute cholecystitis by ultrasound. Agree with prelim report. MRCP:1. No choledocholithiasis demonstrated. No biliary or pancreatic ductal dilatation. 2. Peripancreatic edema in keeping with acute interstitial edematous pancreatitis. No loculated fluid collection at this time. 3. Small gallstone. Labs 10/06/24 05:15 10/06/24 05:15 Labs: Laboratory Results - last 24 hr 10/06/24 10/06/24 05:13 05:15 WBC 7.5 RBC 5.24 Hgb 15.2 Hct 45.0 MCV 85.8 MCH 29.0 MCHC 33.8 RDW 14.1 Plt Count 243 Neut % (Auto) 59.2 Lymph % (Auto) 29.6 [place] % (Auto) 7.1 Eos % (Auto) 3.5 Baso % (Auto) 0.6 Neut # (Auto) 4400 Lymph # (Auto) 2200 [place] # (Auto) 500 Eos # (Auto) 300 Baso # (Auto) 0 PT 11.1 INR 1.0 Sodium 141 Potassium 4.0 Chloride 106 Carbon Dioxide 32 BUN 20 Creatinine 1.22 Estimated GFR > 60 BUN/Creatinine Ratio 16.4 Glucose 149 H Lactate 0.8 Calcium 9.2 Magnesium 1.9 Total Bilirubin 1.4 H AST 93 H ALT 37 Alkaline Phosphatase 119 Total Creatine Kinase 128 Troponin I < 0.012 Total Protein 6.7 Albumin 4.2 Globulin 2.5 Albumin/Globulin Ratio 1.7 Lipase 3151 H Urine RBC None seen Urine WBC None seen Ur Squamous Epith Cells 0-1 /hpf Urine Bacteria None seen Ur Culture Indicated? Cult not indicated Vol Urine Centrifuged 10ml (spun) Assessment & Plan Assessment & Plan narrative: 1. Gallstone pancreatitis, present on admission and active. 2. Choledocholithiasis, present on admission and active. 3. IDDM 1, present on admission and active. 4. Seizure disorder which is stable, present on admission and stable. 5. GERD, present on admission stable. Plan: -NPO status, analgesics and IV fluids. -general surgery is consulted for consideration of cholecystectomy at some point. -continue seizure medications and monitor for seizure. -reduced dose Lantus and correctional lispro Anticipate a 2 midnight length of stay in the hospital, inpatient status is supportive. Full resuscitation JALYN is October 08. Time-Based Coding :: 35 min] spent with patient and on the chart (including review of chart, obtaining history, exam, reviewing outside data, placing orders, documenting exam and treatment plan, and counseling patient) on 10/06. Quality MIPS - Admit I confirm the patient?s Advance Care Plan is present, Code status is documented, Surrogate decision maker is in patient?s record [If Yes, STOP here]: Yes MIPS - Meds 'Current medications' to include all prescriptions, axns-awg-meavwps products, herbals, cannabis/cannabidiol products, and vitamin/mineral/dietary (nutritional) supplements. I have utilized all available resources to obtain, update, or review the patient?s current medications. [If Yes, STOP here]: Yes
[2024-10-06] MEDS: SODIUM CHLORIDE 0.9% 1,000 ML 100 ML IV ×2 (11:25→20:58)
[2024-10-06] MEDS: lamoTRIgine 100 MG TABLET 200 MG PO ×2 (13:13→20:29)
[2024-10-06] MEDS: lisinopriL 20 MG TABLET PO ×2 (13:13→20:27)
[2024-10-06] MEDS: PANTOPRAZOLE DR 20 MG TABLET PO ×2 (13:14→20:29)
[2024-10-06] MEDS: HYDROMORPHONE 0.5 MG INJ IV (13:54)
[2024-10-06] MEDS: MORPHINE 2 MG/ML INJ IV (15:21)
--- NOTE | 2024-10-06 17:01 | PM.CN ---
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 MRCP performed and not show any stones in the common duct. Denies any jaundice Meds Home Medications and Allergies Home Medications Medication Instructions Recorded Confirmed Type insulin aspart U-100 100 unit/mL SUBCUT 09/03/23 09/09/24 History subcutaneous solution lamotrigine 200 mg tablet 200 mg PO BID 09/03/23 10/06/24 History blood sugar diagnostic (Accu-Chek #10 ea 09/15/23 10/06/24 History Guide test strips) tamsulosin 0.4 mg capsule 0.8 mg (2 x 0.4 mg) PO BEDTIME 10/27/23 10/06/24 Rx #180 caps lisinopril 20 mg tablet 20 mg PO BID #180 tabs 11/30/23 10/06/24 Rx rosuvastatin 5 mg tablet 5 mg PO DAILY #90 tabs 01/18/24 10/06/24 Rx atenolol 25 mg tablet 25 mg PO DAILY #90 tabs 02/25/24 10/06/24 Rx scopolamine base 1 mg over 3 days 1 patch transdermal Q72H PRN 03/09/24 10/06/24 Rx transdermal patch motion sickness #4 ea pantoprazole 20 mg tablet,delayed 20 mg PO BID 04/26/24 10/06/24 History release sildenafil (pulm.hypertension) 20 20 - 100 mg (1 - 5 x 20 mg) PO 07/18/24 10/06/24 Rx mg tablet DAILY PRN sexual activity #30 tabs Allergies Allergy/AdvReac Type Severity Reaction Status Date / Time codeine AdvReac Mild Nausea Verified 09/09/24 13:11 tramadol AdvReac Mild lower Verified 09/09/24 13:11 seizure threshold Review of Systems Review of Systems ROS: Yes All systems reviewed with the patient and are negative except as otherwise documented Exam Vital Signs (past 8 hours): - 10/06/24 09:30 10/06/24 09:30 10/06/24 10:00 Temperature Pulse Rate 51 L 49 L Respiratory Rate Blood Pressure 138/66 Pulse Oximetry 94 93 Oxygen Delivery Method Room Air 10/06/24 10:20 10/06/24 13:13 10/06/24 16:00 Temperature 96.8 F L 97.5 F L Pulse Rate 48 L 49 L 57 L Respiratory Rate 20 16 Blood Pressure 153/75 H 153/79 H 142/78 H Pulse Oximetry 98 97 Oxygen Delivery Method Oxygen Delivery Method Room Air Narrative Exam Narrative: Gen: NAD, sitting comfortably in bed, appears well HEENT: Sclera are anicteric, head is normocephalic and atraumatic, trachea is midline. CV: RRR, no JVD Resp: clear to auscultation bilaterally, equal chest wall movement bilaterally Abd: soft, nontender, normoactive bowel sounds. Right-sided insulin pump in his right lower quadrant, left lower quadrant glucometer Ext: no edema, full range of motion Neuro: Cranial nerves II-XII grossly intact, no focal deficits Skin: No erythema or ecchymosis Objective Labs 10/06/24 05:15 10/06/24 05:15 Labs: Laboratory Results - last 24 hr 10/06/24 10/06/24 05:13 05:15 WBC 7.5 RBC 5.24 Hgb 15.2 Hct 45.0 MCV 85.8 MCH 29.0 MCHC 33.8 RDW 14.1 Plt Count 243 Neut % (Auto) 59.2 Lymph % (Auto) 29.6 [place] % (Auto) 7.1 Eos % (Auto) 3.5 Baso % (Auto) 0.6 Neut # (Auto) 4400 Lymph # (Auto) 2200 [place] # (Auto) 500 Eos # (Auto) 300 Baso # (Auto) 0 PT 11.1 INR 1.0 Sodium 141 Potassium 4.0 Chloride 106 Carbon Dioxide 32 BUN 20 Creatinine 1.22 Estimated GFR > 60 BUN/Creatinine Ratio 16.4 Glucose 149 H Lactate 0.8 Calcium 9.2 Magnesium 1.9 Total Bilirubin 1.4 H AST 93 H ALT 37 Alkaline Phosphatase 119 Total Creatine Kinase 128 Troponin I < 0.012 Total Protein 6.7 Albumin 4.2 Globulin 2.5 Albumin/Globulin Ratio 1.7 Lipase 3151 H Urine RBC None seen Urine WBC None seen Ur Squamous Epith Cells 0-1 /hpf Urine Bacteria None seen Ur Culture Indicated? 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 Risks of retained stone, bile leak, need for ERCP, bleeding and infection discussed with the patient. He agrees to laparoscopic cholecystectomy with cholangiography. Time-Based Coding :: [TOTAL MINUTES] spent with patient and on the chart (including review of chart, obtaining history, exam, reviewing outside data, placing orders, documenting exam and treatment plan, and counseling patient) on [DATE].
[2024-10-06] MEDS: atenoloL 25 MG TABLET PO (20:29)
[2024-10-06] MEDS: TAMSULOSIN 0.4 MG CAPSULE 0.8 MG PO (20:29)
[2024-10-06] MEDS: ACETAMINOPHEN 325 MG TABLET 650 MG PO (20:58)
[2024-10-07] VITALS (17 sets, daily range): BP systolic 112–163; BP diastolic 60–91; PULSE 55–93; RESP 10–20; TEMP 36.2–36.9; O2SAT 90–98; BMI 28.3
--- NOTE | 2024-10-07 | PATH_ITS ---
[facility] Accession Number: [id number] No. of containers..01 Tissue . 01 Material submitted: . gallbladder - GALLBLADDER . 01 Diagnosis: GALLBLADDER, CHOLECYSTECTOMY: Chronic cholecystitis and cholelithiasis. [facility] 10/11/2024 1145 Local . 01 Electronically signed: . Viri Mcdonough MD, Pathologist NPI- [id number] . 01 Gross description: . Received in formalin with two identifiers and gallbladder, is a disrupted gallbladder 8.3 x 3.4 x 2.5 cm with an external surface with a full thickness defect 2.0 cm in greatest dimension. The cystic duct margin is inked blue, and no pericystic lymph node candidate is identified. The lumen contains a small amount of green viscous bile with a black roughened calculus identified 0.6 cm in greatest dimension not obstructing the cystic duct. The mucosa is green and velvety with no yellow areas of discoloration, polys, or lesions identified. The valerio average 0.2 cm thick. Sound Effects Manager sections to include the cystic duct margin and full thickness sections are submitted in cassette A1. ([id number]) /[facility] 10/08/2024 2323 Local . 01 Pathologist provided ICD-10: K80.10, K81.1 . 01 CPT . 888475 Specimen Comment: A courtesy copy of this report has been sent to [facility] Pathology Performed at: [address] [address], [place], [place] [id number] MD George Hunter MD Phone: [phone]
--- NOTE | 2024-10-07 | DI.RAD.S_ITS ---
PROCEDURE: XR CHOLANGIOGRAM OPERATIVE INDICATIONS: OR COMPARISON: None. FINDINGS: The surgeon injected contrast into the biliary ducts after cannulation of the cystic duct stump. Visualized intra- and extrahepatic bile ducts are within normal limits. No evidence of contrast extravasation. IMPRESSION: Single intraoperative fluoroscopic image with contrast injection into the biliary tree. Please see separately dictated operative report for full details. Approved by: Monica Alexander M.D.,Ph.D. on 10/07/2024 at 18:00
[2024-10-07 04:47] LABS: Add Manual Diff / Slide Review NO; Basophils Absolute Auto 0 /uL (0-100); Basophils Percent Auto 0.5 % (0-2); Eosinophils Absolute Auto 200 /uL (0-450); Eosinophils Percent Auto 3.7 % (2-4); Hematocrit 39.2 % (41-53); Hemoglobin 13.2 g/dL (13.5-17.5); Lymphocytes Absolute Auto 1500 /uL (1100-4500); Lymphocytes Percent Auto 31.1 % (25-40); Mean Corpuscular HGB Conc 33.7 % (30-36); Mean Corpuscular Hemoglobin 28.9 PG (26-34); Monocytes Absolute Auto 400 /uL (0-900); Monocytes Percent Auto 7.7 % (3-14); Neutrophils Absolute Auto 2800 /uL (1500-7000); Platelet Count 207 X10^3/uL (150-400); Red Blood Cell Count 4.56 X10^6/uL (4.5-5.9); Red Cell Distribution Width 13.8 % (11.6-14.8); White Blood Cell Count 4.8 X10^3/uL (4.5-11.0)
[2024-10-07 04:51] LABS: BUN Creatinine Ratio 13.3 (6-22); Blood Urea Nitrogen 15 mg/dL (9-20); Calcium 8.7 mg/dL (8.4-10.2); Carbon Dioxide 32 mmol/L (22-32); Chloride 106 mmol/L (98-107); Estimated Glomerular Filt Rate > 60 mL/min (>60); Glucose 128 mg/dL (80-110); HEMOLYSIS < 15 (0-50); Potassium 4.2 mmol/L (3.4-5.1); Sodium 140 mmol/L (137-145)
[2024-10-07] MEDS: ACETAMINOPHEN 325 MG TABLET 650 MG PO ×3 (06:19→21:43)
--- NOTE | 2024-10-07 07:18 | PM.PN.1 ---
Subjective Subjective Interval history: Summary: 69-year-old male was admitted with gallstone pancreatitis. Consideration for a lap raffaele today. He was running his insulin pump and glucose is at 1:16 a.m.. Subjective: His pain is improved. No nausea. He was in the OR schedule for 1600. Exam Vital Signs (past 8 hours): - 10/07/24 02:00 Temperature 97.4 F L Pulse Rate 55 L Respiratory Rate 14 Blood Pressure 138/77 Pulse Oximetry 95 Oxygen Delivery Method Room Air Narrative Exam Narrative: NAD, alert and oriented. Fluent speech. Lungs are clear, normal rate and effort. Heart is regular, no murmur gallop or rub. Abdomen is soft, non distended. Extremities are free of edema. Objective Labs 10/07/24 04:11 10/07/24 04:11 Labs: Laboratory Results - last 24 hr 10/07/24 04:11 WBC 4.8 RBC 4.56 Hgb 13.2 L Hct 39.2 L MCV 86.0 MCH 28.9 MCHC 33.7 RDW 13.8 Plt Count 207 Neut % (Auto) 57.0 Lymph % (Auto) 31.1 [place] % (Auto) 7.7 Eos % (Auto) 3.7 Baso % (Auto) 0.5 Neut # (Auto) 2800 Lymph # (Auto) 1500 [place] # (Auto) 400 Eos # (Auto) 200 Baso # (Auto) 0 Sodium 140 Potassium 4.2 Chloride 106 Carbon Dioxide 32 BUN 15 Creatinine 1.13 Estimated GFR > 60 BUN/Creatinine Ratio 13.3 Glucose 128 H Calcium 8.7 PFSH Medical History Urinary frequency Nocturia Obstructive sleep apnea Chronic low back pain Overweight Type 1 diabetes mellitus with hyperlipidemia GERD without esophagitis Erectile dysfunction 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 Mixed hyperlipidemia Essential hypertension 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 Gallstone pancreatitis, present on admission and active. 2. Choledocholithiasis, present on admission and active. 3. IDDM 1, present on admission and active. 4. Seizure disorder which is stable, present on admission and stable. 5. GERD, present on admission stable. Plan: -NPO, rajendra raffaele today. -patient was running insulin pump, insulin pump order set is active. Anticipate a 2 midnight length of stay in the hospital, inpatient status is supportive. Full resuscitation JALYN is October 08. Time-Based Coding :: [TOTAL MINUTES] spent with patient and on the chart (including review of chart, obtaining history, exam, reviewing outside data, placing orders, documenting exam and treatment plan, and counseling patient) on [DATE]. Quality VTE Deep Vein Thrombosis/Pulmonary Embolism Present on Admission: No
[2024-10-07] MEDS: lamoTRIgine 100 MG TABLET 200 MG PO ×2 (08:52→21:44)
[2024-10-07] MEDS: lisinopriL 20 MG TABLET PO ×2 (08:52→21:42)
[2024-10-07] MEDS: PANTOPRAZOLE DR 20 MG TABLET PO ×2 (08:52→21:47)
[2024-10-07] MEDS: SODIUM CHLORIDE 0.9% 1,000 ML 100 ML IV ×2 (09:03→15:48)
--- NOTE | 2024-10-07 10:55 | CM.DANOTE ---
Initial DCP Assessment Note Pt is a 69 yo male, resident of [place], arrives with abd pain, admitted with gallstone pancreatitis, scheduled in the OR today for lap raffaele. PCP: Marcio Rojo Payer: Caitlin/MARBIN A Reviewed chart, pt discussed in multidisciplinary rounds this morning. Patient lives independently with spouse. 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 No barriers identified at this time to patient's safe discharge home w/family to assist; close outpatient f/u recommended. CM team will plan to follow clinical course closely in case any DC needs or concerns arise. CHIP Gutiérrez Discharge Planning/Care Management CM Discharge Assessment Start: 10/07/24 10:51 Freq: Status: Active Protocol: Document 10/07/24 10:52 DODIE (Rec: 10/07/24 10:55 DODIE [id number]) Discharge Planning Assessment Assigned Bag Hanger CHIP Hood DPOA/Assigned Designee Name Christina Nix, spouse Contact Information [phone] Advance Directives? Yes Advance Directives on File No History Provided By Patient,Significant Other, Medical Record Prior Living Arrangements House Household Members spouse Type of transporation used prior to Drives own vehicle admit Independent with ADL's Yes Is patient alert and oriented? Yes Comment No AD Barriers to Discharge No Discharge Plan Home Transportation Arrangement Spouse Referrals Initiated None needed
--- NOTE | 2024-10-07 13:47 | PC.NURSE ---
At approximately 1320 patient is escorted via bed to Pre op area. at bedside takes patient's insulin pump, CGM and wedding band. He voids and is change into a gown.
--- NOTE | 2024-10-07 15:54 | SUR.OPER ---
Supine on padded OR bed, head on pillow, arms secured on padded arm boards at <90 degrees abduction, legs uncrossed, safety belt at thigh, tape over blanket over lower legs.
[2024-10-07] MEDS: BUPIVACAINE 0.5% W/ EPI (PF) 30 ML VIAL INJ (16:00)
[2024-10-07] MEDS: iopamidoL 30 ML VIAL INJ (16:00)
--- NOTE | 2024-10-07 16:44 | PM.OP.1 ---
Operative Date/Time/Diagnoses Date of procedure: 10/07/24 Time of procedure: 16:45 Pre-op diagnosis: gallstone pancreatitis Post-op diagnosis: same Procedure & Clinicians Procedure: Laparoscopic cholecystectomy with cholangiography Same procedure as scheduled: Yes Indications: Gallstone pancreatitis Surgeon: Jaime Bettencourt Click Yes if Unassisted: Yes Anesthesia Type: General Operative Notes Findings: Patient was brought to the operating room suite. General anesthesia was induced. Patient placed in supine position with the arms out. The abdomen was prepped and draped in the usual fashion. 5 mm Optiview trocar was placed in left upper quadrant. Pneumoperitoneum was achieved. The abdomen was inspected. There was edema around the gallbladder. 11 mm trocar was placed in the infraumbilical position. Two 5 mm trocars placed in right upper quadrant. The gallbladder was grasped retracted laterally and cephalad. Bovie electrocautery was used to open the medial and lateral attachments of the gallbladder. The critical view of the single cystic duct and cystic artery were obtained. There was a posterior branch of the cystic artery that also required clipping. The cystic artery was clipped and divided. The cystic duct was clipped at the level of the infundibulum. A cystic ductotomy was performed and a cholangiogram catheter was inserted. Cholangiography revealed prompt filling of the duodenal with bilateral intrahepatic ductal filling and no evidence of filling defects. As such, this completed the cholangiogram cholangiogram catheter was withdrawn. The cystic duct was triply clipped and divided. Bovie electrocautery was used to remove the gallbladder from the liver bed. Gallbladder was placed in the umbilical trocar and removed. Free fluid was suctioned from the abdomen. There was no spillage of stones. Pneumoperitoneum was relieved. Umbilical trocar was closed with 0 Vicryl on a Sunny Henao suture Passer. Skin was closed with 4-0 Monocryl and Dermabond. Closure Type: primary Specimen(s): other (gallbladder) Estimated Blood Loss (mL): 25 Complications: none Post-operative Condition: stable Disposition: PACU Plan for aftercare: home
--- NOTE | 2024-10-07 16:55 | PM.DS.1 ---
History of Present Illness History of Present Illness Chief complaint: abd pain Discharge Providers Provider Date of admission: 10/06/24 09:28 Discharge Date: 10/08/24 Primary care physician: Marcio Rojo MD Consults: 10/06/24 15:56 Consult to General Surgery Routine Comment: Consulting Provider: Jaime Bettencourt Reason for consultation: gallstone pancreatitis Has provider been notified: Yes Discharge provider: Jaime Bettencourt MD Exam Vital Signs (past 8 hours): - 10/07/24 13:34 10/07/24 16:43 10/07/24 16:48 Temperature 98.5 F 97.1 F L Pulse Rate 65 83 83 Respiratory Rate 15 20 13 Blood Pressure 140/78 133/74 147/82 H Pulse Oximetry 96 93 90 L Oxygen Delivery Method Room Air Nasal Cannula Nasal Cannula Oxygen Flow Rate 4 4 Oxygen Delivery Method Nasal Cannula Oxygen Flow Rate 4 Objective Labs 10/08/24 04:50 10/08/24 04:50 Labs: Laboratory Results - last 24 hr 10/07/24 04:11 WBC 4.8 RBC 4.56 Hgb 13.2 L Hct 39.2 L MCV 86.0 MCH 28.9 MCHC 33.7 RDW 13.8 Plt Count 207 Neut % (Auto) 57.0 Lymph % (Auto) 31.1 [place] % (Auto) 7.7 Eos % (Auto) 3.7 Baso % (Auto) 0.5 Neut # (Auto) 2800 Lymph # (Auto) 1500 [place] # (Auto) 400 Eos # (Auto) 200 Baso # (Auto) 0 Sodium 140 Potassium 4.2 Chloride 106 Carbon Dioxide 32 BUN 15 Creatinine 1.13 Estimated GFR > 60 BUN/Creatinine Ratio 13.3 Glucose 128 H Calcium 8.7 PFSH Medical History Urinary frequency Nocturia Obstructive sleep apnea Chronic low back pain Overweight Type 1 diabetes mellitus with hyperlipidemia GERD without esophagitis Erectile dysfunction 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 Mixed hyperlipidemia Essential hypertension 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: , 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: Never smoker alcohol intake: never Discharge Assessment & Plan Assessment and Plan Assessment: Biliary pancreatitis Plan of Treatment: Postop recovery at home Discharge Plan Discharge Plan Patient Disposition: Home Discharge orders & Medications Prescriptions: New tizanidine 2 mg tablet 2 mg PO Q8H PRN (Reason: pain or spasms) Qty: 60 0RF oxycodone 5 mg tablet 5 mg PO Q8H PRN (Reason: pain) Qty: 5 0RF Continued lamotrigine 200 mg tablet 200 mg PO BID lisinopril 20 mg tablet 20 mg PO BID Qty: 180 3RF rosuvastatin 5 mg tablet 5 mg PO DAILY Qty: 90 3RF atenolol 25 mg tablet 25 mg PO DAILY Qty: 90 3RF scopolamine base 1 mg over 3 days patch 3 day 1 patch transdermal Q72H PRN (Reason: motion sickness) Qty: 4 3RF Rx Instructions: APPLY 1 patch TOPICALLY EVERY 72 HOURS Hours as needed for motion sickness sildenafil (pulm.hypertension) 20 mg tablet 20 - 100 mg PO DAILY PRN (Reason: sexual activity) Qty: 30 5RF (DME) Accu-Chek Guide test strips Strip See Rx Instructions .ROUTE 5XD Qty: 10 Rx Instructions: As directed tamsulosin 0.4 mg capsule 0.8 mg PO BEDTIME Qty: 180 3RF pantoprazole 20 mg tablet,delayed release (DR/EC) 20 mg PO BID insulin aspart U-100 [Novolog PenFill U-100 Insulin] 100 unit/mL Cartridge See Rx Instructions .ROUTE .COMPLEX Rx Instructions: insulin pump Follow up/Referrals: Marcio Rojo MD [Primary Care Provider] - Diet/Activity/Treatments Diet: Regular Skin/Wound/Dressing Care Dressing: glue will dry and fall off in 2-3 weeks Visit Report/Discharge Packet Instructions: DI for Laparoscopic Cholecystectomy Stand Alone Forms: Patient Portal/API, Stroke Signs & Symptoms, Surgery Discharge Discharge Data Primary Care Provider: Marcio Rojo V Quality VTE Deep Vein Thrombosis/Pulmonary Embolism Present on Admission: No
--- NOTE | 2024-10-07 17:00 | P.DS_ITS ---
History of Present Illness History of Present Illness Date Patient Seen: 10/07/24 Time Patient Seen: 17:00 Chief complaint: abd pain Narrative: 69-year-old white male presents with abdominal pain found to have biliary pancreatitis. Discharge Providers Provider Date of admission: 10/06/24 09:28 Discharge Date: 10/08/24 Primary care physician: Marcio Rojo MD Consults: 10/06/24 15:56 Consult to General Surgery Routine Comment: Consulting Provider: Jaime Bettencourt Reason for consultation: gallstone pancreatitis Has provider been notified: Yes Discharge provider: Jaime Bettencourt MD Summary Hospital Course Discharge Diagnosis: Biliary pancreatitis Hospital Course: Patient was admitted with biliary pancreatitis. Hydrated. Taken for laparoscopic cholecystectomy with cholangiography the next day. Tolerated procedure well. Status at Discharge Cognitive/behavioral status at discharge: oriented Functional status at discharge: independent ambulation Overall status at discharge: patient is back to baseline Time Spent with Patient Time spent: Less than 30 minutes Exam Vital Signs (past 8 hours): - 10/07/24 13:34 10/07/24 16:43 10/07/24 16:48 Temperature 98.5 F 97.1 F L Pulse Rate 65 83 83 Respiratory Rate 15 20 13 Blood Pressure 140/78 133/74 147/82 H Pulse Oximetry 96 93 90 L Oxygen Delivery Method Room Air Nasal Cannula Nasal Cannula Oxygen Flow Rate 4 4 10/07/24 16:53 Temperature Pulse Rate 81 Respiratory Rate 10 L Blood Pressure 148/79 H Pulse Oximetry 93 Oxygen Delivery Method Nasal Cannula Oxygen Flow Rate 5 Oxygen Delivery Method Nasal Cannula Oxygen Flow Rate 5 Narrative Exam Narrative: Gen: NAD, sitting comfortably in bed, appears well HEENT: Sclera are anicteric, head is normocephalic and atraumatic, trachea is midline. CV: RRR, no JVD Resp: clear to auscultation bilaterally, equal chest wall movement bilaterally Abd: soft, nontender, normoactive bowel sounds Ext: no edema, full range of motion Neuro: Cranial nerves II-XII grossly intact, no focal deficits Skin: No erythema or ecchymosis Objective Labs 10/08/24 04:50 10/08/24 04:50 Labs: Laboratory Results - last 24 hr 10/07/24 04:11 WBC 4.8 RBC 4.56 Hgb 13.2 L Hct 39.2 L MCV 86.0 MCH 28.9 MCHC 33.7 RDW 13.8 Plt Count 207 Neut % (Auto) 57.0 Lymph % (Auto) 31.1 [place] % (Auto) 7.7 Eos % (Auto) 3.7 Baso % (Auto) 0.5 Neut # (Auto) 2800 Lymph # (Auto) 1500 [place] # (Auto) 400 Eos # (Auto) 200 Baso # (Auto) 0 Sodium 140 Potassium 4.2 Chloride 106 Carbon Dioxide 32 BUN 15 Creatinine 1.13 Estimated GFR > 60 BUN/Creatinine Ratio 13.3 Glucose 128 H Calcium 8.7 PFSH Medical History Urinary frequency Nocturia Obstructive sleep apnea Chronic low back pain Overweight Type 1 diabetes mellitus with hyperlipidemia GERD without esophagitis Erectile dysfunction 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 Mixed hyperlipidemia Essential hypertension 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: , 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: Never smoker alcohol intake: never Discharge Assessment & Plan Assessment and Plan Assessment: Biliary pancreatitis Plan of Treatment: Postop recovery at home Discharge Plan Discharge Plan Patient Disposition: Home Discharge orders & Medications Prescriptions: New oxycodone 5 mg tablet 5 mg PO Q8H PRN (Reason: pain) Qty: 5 0RF tizanidine 2 mg tablet 2 mg PO Q8H PRN (Reason: pain or spasms) Qty: 60 0RF Continued lamotrigine 200 mg tablet 200 mg PO BID lisinopril 20 mg tablet 20 mg PO BID Qty: 180 3RF rosuvastatin 5 mg tablet 5 mg PO DAILY Qty: 90 3RF atenolol 25 mg tablet 25 mg PO DAILY Qty: 90 3RF scopolamine base 1 mg over 3 days patch 3 day 1 patch transdermal Q72H PRN (Reason: motion sickness) Qty: 4 3RF Rx Instructions: APPLY 1 patch TOPICALLY EVERY 72 HOURS Hours as needed for motion sickness sildenafil (pulm.hypertension) 20 mg tablet 20 - 100 mg PO DAILY PRN (Reason: sexual activity) Qty: 30 5RF (DME) Accu-Chek Guide test strips Strip See Rx Instructions .ROUTE 5XD Qty: 10 Rx Instructions: As directed tamsulosin 0.4 mg capsule 0.8 mg PO BEDTIME Qty: 180 3RF pantoprazole 20 mg tablet,delayed release (DR/EC) 20 mg PO BID insulin aspart U-100 [Novolog PenFill U-100 Insulin] 100 unit/mL Cartridge See Rx Instructions .ROUTE .COMPLEX Rx Instructions: insulin pump Follow up/Referrals: Marcio Rojo MD [Primary Care Provider] - Diet/Activity/Treatments Diet: Regular Skin/Wound/Dressing Care Dressing: glue will dry and fall off in 2-3 weeks Visit Report/Discharge Packet Instructions: DI for Laparoscopic Cholecystectomy Stand Alone Forms: Patient Portal/API, Stroke Signs & Symptoms, Surgery Discharge Discharge Data Primary Care Provider: Marcio Rojo V Quality VTE Deep Vein Thrombosis/Pulmonary Embolism Present on Admission: No
[2024-10-07] MEDS: OXYCODONE IR 5 MG TABLET PO ×2 (17:51→18:29)
[2024-10-07] MEDS: HYDROMORPHONE 1 MG INJ IV (18:04)
--- NOTE | 2024-10-07 18:30 | SUR.PHASEI ---
Pt c/o right-sided pain under ribs s/p TAP block. Equal chest rise, LCTAB. Pt eval'd by anesthesia and ok'd to transfer.
--- NOTE | 2024-10-07 20:04 | PC.NURSE ---
Patient arrived from PACU at 1850 A&OX4, VSS, afebrile on 4 LNC. He reports being comfortable, Lap sites x3 KATHRYN. RT at bedside weaning 02 down to 3 LNC. BG checked was 199. at bedside assisting with re-placing insulin pump tubing and reinitiating pump. MD Bettencourt notified for medication orders. Endorsed to oncoming shift.
[2024-10-07] MEDS: ATORVASTATIN 20 MG TABLET 10 MG PO (21:44)
[2024-10-08] VITALS (7 sets, daily range): BP systolic 103–158; BP diastolic 65–92; PULSE 71–87; RESP 16–20; TEMP 36.2–36.9; O2SAT 91–96
[2024-10-08] MEDS: OXYCODONE IR 5 MG TABLET PO ×2 (05:07→10:06)
[2024-10-08] MEDS: TIZANIDINE 4 MG TABLET 2 MG PO ×2 (05:08→13:01)
[2024-10-08] MEDS: ACETAMINOPHEN 325 MG TABLET 650 MG PO ×3 (05:08→18:39)
[2024-10-08] MEDS: PANTOPRAZOLE DR 20 MG TABLET PO ×2 (05:16→20:41)
[2024-10-08 05:19] LABS: Add Manual Diff / Slide Review NO; Basophils Absolute Auto 0 /uL (0-100); Basophils Percent Auto 0.1 % (0-2); Eosinophils Absolute Auto 0 /uL (0-450); Hematocrit 36.8 % (41-53); Hemoglobin 12.7 g/dL (13.5-17.5); Lymphocytes Absolute Auto 1000 /uL (1100-4500); Lymphocytes Percent Auto 14.7 % (25-40); Mean Corpuscular HGB Conc 34.6 % (30-36); Mean Corpuscular Hemoglobin 29.6 PG (26-34); Mean Corpuscular Volume 85.5 fL (80-100); Monocytes Absolute Auto 600 /uL (0-900); Monocytes Percent Auto 9.2 % (3-14); Neutrophils Absolute Auto 5100 /uL (1500-7000); Platelet Count 217 X10^3/uL (150-400); Red Cell Distribution Width 13.6 % (11.6-14.8); White Blood Cell Count 6.7 X10^3/uL (4.5-11.0)
[2024-10-08 05:20] LABS: BUN Creatinine Ratio 18.6 (6-22); Blood Urea Nitrogen 21 mg/dL (9-20); Calcium 8.4 mg/dL (8.4-10.2); Carbon Dioxide 27 mmol/L (22-32); Chloride 103 mmol/L (98-107); Estimated Glomerular Filt Rate > 60 mL/min (>60); Glucose 189 mg/dL (80-110); HEMOLYSIS < 15 (0-50); Potassium 4.3 mmol/L (3.4-5.1); Sodium 135 mmol/L (137-145)
[2024-10-08] MEDS: lamoTRIgine 100 MG TABLET 200 MG PO ×2 (08:30→20:42)
[2024-10-08] MEDS: PREGABALIN 75 MG CAPSULE PO ×2 (08:30→20:40)
[2024-10-08] MEDS: TAMSULOSIN 0.4 MG CAPSULE PO (08:30)
[2024-10-08] MEDS: MORPHINE 2 MG/ML INJ IV ×3 (08:31→20:45)
[2024-10-08] MEDS: lisinopriL 20 MG TABLET PO (08:31)
[2024-10-08] MEDS: atenoloL 25 MG TABLET PO (08:31)
[2024-10-08 11:09] LABS: C-Reactive Protein Quant 2.4 mg/dL (<1.0); Lipase 53 U/L (23-300)
[2024-10-08] MEDS: MORPHINE 4 MG/ML INJ IV (11:34)
[2024-10-08 11:54] LABS: Alanine Aminotransferase 35 IU/L (<50); Albumin 3.3 g/dL (3.5-5.0); Albumin Globulin Ratio 1.7 (1.0-2.8); Alkaline Phosphatase 98 U/L (38-126); Aspartate Aminotransferase 62 IU/L (17-59); Bilirubin Total 1.2 mg/dL (0.2-1.3); HEMOLYSIS < 15 (0-50); Total Protein 5.3 g/dL (6.3-8.2)
[2024-10-08] MEDS: OXYCODONE IR 10 MG TABLET PO ×2 (13:01→16:19)
--- NOTE | 2024-10-08 13:26 | PM.PNPO.1 ---
Subjective Subjective Date Patient Seen: 10/08/24 Time Patient Seen: 13:26 Interval history: Patient had right flank pain immediately after awaking from surgery yesterday. He had a Marcaine tap block which gave him some relief. That block wore off this morning and now his pain on the right side has returned. Additional pain medications have been ordered Exam Vital Signs (past 8 hours): - 10/08/24 06:00 10/08/24 08:00 10/08/24 08:31 Temperature 98.5 F 98.1 F Pulse Rate 74 71 74 Respiratory Rate 17 16 Blood Pressure 158/88 H 140/72 158/88 H Pulse Oximetry 92 93 Oxygen Flow Rate 0 Oxygen Delivery Method Nasal Cannula Oxygen Flow Rate 0 Narrative Exam Narrative: Patient is sitting up in a chair, changing the battery on his 's car keys. Does not seem on as uncomfortable as reported. Incisions are clean, dry, intact. His abdomen is symmetrical Objective Labs 10/08/24 04:50 10/08/24 04:50 Labs: Laboratory Results - last 24 hr 10/08/24 10/08/24 04:50 04:52 WBC 6.7 RBC 4.30 L Hgb 12.7 L Hct 36.8 L MCV 85.5 MCH 29.6 MCHC 34.6 RDW 13.6 Plt Count 217 Neut % (Auto) 76.0 H Lymph % (Auto) 14.7 L [place] % (Auto) 9.2 Eos % (Auto) 0.0 L Baso % (Auto) 0.1 Neut # (Auto) 5100 Lymph # (Auto) 1000 L [place] # (Auto) 600 Eos # (Auto) 0 Baso # (Auto) 0 Sodium 135 L Potassium 4.3 Chloride 103 Carbon Dioxide 27 BUN 21 H Creatinine 1.13 Estimated GFR > 60 BUN/Creatinine Ratio 18.6 Glucose 189 H Calcium 8.4 Total Bilirubin 1.2 Conjugated Bilirubin 0.0 Unconjugated Bilirubin 1.0 AST 62 H ALT 35 Alkaline Phosphatase 98 C-Reactive Protein 2.4 H Total Protein 5.3 L Albumin 3.3 L Globulin 2.0 Albumin/Globulin Ratio 1.7 Lipase 53 D [facility], [facility]–1983 Medical History Urinary frequency Nocturia Obstructive sleep apnea Chronic low back pain Overweight Type 1 diabetes mellitus with hyperlipidemia GERD without esophagitis Erectile dysfunction 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 Would expect it to improve throughout the course of today. Hopefully he will be appropriate for discharge tomorrow. Quality VTE Deep Vein Thrombosis/Pulmonary Embolism Present on Admission: No
--- NOTE | 2024-10-08 17:29 | PM.PN.1 ---
Subjective Subjective Interval history: 69-year-old gentleman with hypertension, hyperlipidemia, type 1 diabetes, chronic low back pain, obstructive sleep apnea who is postoperative day 1. From laparoscopic cholecystectomy for gallstone pancreatitis. Patient reports he is in severe pain. He states he did okay initially. However, he notes he woke up at 5:00 a.m. this morning with very significant pain. He describes it as being in the right upper quadrant. He notes that it hurts to take a deep breath. He told the nurse earlier today that he feels as though the surgeon ?left a knife in there?. He states he was able to get up and walk, but after getting back to bed, the pain worsened. He now reports any movement where he has to tighten his abdominal muscles makes the pain quite significant. He reports that the morphine he received earlier helped somewhat, but the oxycodone? did not touch it?. He can not tell me whether this pain is worse than the pain he was having preoperatively. Exam Vital Signs (past 8 hours): - 10/08/24 16:00 Temperature 98.5 F Pulse Rate 77 Respiratory Rate 20 Blood Pressure 146/92 H Pulse Oximetry 96 Oxygen Flow Rate 0 Oxygen Delivery Method Nasal Cannula Oxygen Flow Rate 0 Narrative Exam Narrative: GEN: Alert and oriented x 3, appears very uncomfortable HEENT:NC, Face symmetric CHEST: Respiratory excursions symmetric, CTAB CV: RRR, no M/R/G ABD: Soft, significant tenderness to palpation to the right upper quadrant near his surgical site, bruising noted around his umbilical site, BT hypoactive but present in all 4 quadrants, body habitus limits exam EXTR: warm, well perfused, no C/C/E SKIN: warm and dry, no rash NEURO: Alert and oriented x 3, nonfocal Objective Labs 10/08/24 04:50 10/08/24 04:50 Labs: Laboratory Results - last 24 hr 10/08/24 10/08/24 04:50 04:52 WBC 6.7 RBC 4.30 L Hgb 12.7 L Hct 36.8 L MCV 85.5 MCH 29.6 MCHC 34.6 RDW 13.6 Plt Count 217 Neut % (Auto) 76.0 H Lymph % (Auto) 14.7 L [place] % (Auto) 9.2 Eos % (Auto) 0.0 L Baso % (Auto) 0.1 Neut # (Auto) 5100 Lymph # (Auto) 1000 L [place] # (Auto) 600 Eos # (Auto) 0 Baso # (Auto) 0 Sodium 135 L Potassium 4.3 Chloride 103 Carbon Dioxide 27 BUN 21 H Creatinine 1.13 Estimated GFR > 60 BUN/Creatinine Ratio 18.6 Glucose 189 H Calcium 8.4 Total Bilirubin 1.2 Conjugated Bilirubin 0.0 Unconjugated Bilirubin 1.0 AST 62 H ALT 35 Alkaline Phosphatase 98 C-Reactive Protein 2.4 H Total Protein 5.3 L Albumin 3.3 L Globulin 2.0 Albumin/Globulin Ratio 1.7 Lipase 53 D PFSH Medical History Urinary frequency Nocturia Obstructive sleep apnea Chronic low back pain Overweight Type 1 diabetes mellitus with hyperlipidemia GERD without esophagitis Erectile dysfunction 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 Mixed hyperlipidemia Essential hypertension 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 Postoperative day 1 from laparoscopic cholecystectomy for gallstone pancreatitis Patient is having significant pain above what would be typical for someone after cholecystectomy. There is some possibility of a hematoma. His H&H are stable. LFTs are stable. Lipase is improved. CRP is only mildly elevated. I have increased his oxycodone from 5 mg Q 4-10 mg q.3h as needed. One time dose of morphine 4 mg IV given. Did consider a CT scan of the abdomen to assess for hematoma, however after speaking with General surgery, Dr. Zhu, this was not pursued as he felt this would not be a helpful study in the immediate postoperative period. 2. Diabetes mellitus type 1 Patient has an insulin pump which will be continued. 3. Seizure disorder Continue his usual outpatient medications (lamotrigine) 4. GERD Continue pantoprazole Code status Full Prophylaxis Ambulation Disposition Plan to discharge home when pain is better controlled Time-Based Coding :: [TOTAL MINUTES] spent with patient and on the chart (including review of chart, obtaining history, exam, reviewing outside data, placing orders, documenting exam and treatment plan, and counseling patient) on [DATE]. Quality VTE Deep Vein Thrombosis/Pulmonary Embolism Present on Admission: No
[2024-10-08] MEDS: SENNOSIDES 8.6 MG TABLET PO (20:40)
[2024-10-08] MEDS: MAGNESIUM HYDROXIDE 30 ML UDC PO (20:40)
[2024-10-08] MEDS: ATORVASTATIN 20 MG TABLET 10 MG PO (20:41)
[2024-10-09 04:08] LABS: Add Manual Diff / Slide Review NO; Basophils Absolute Auto 0 /uL (0-100); Basophils Percent Auto 0.3 % (0-2); Eosinophils Absolute Auto 100 /uL (0-450); Eosinophils Percent Auto 2.2 % (2-4); Hematocrit 35.6 % (41-53); Hemoglobin 12.1 g/dL (13.5-17.5); Lymphocytes Absolute Auto 1300 /uL (1100-4500); Lymphocytes Percent Auto 19.3 % (25-40); Mean Corpuscular HGB Conc 33.8 % (30-36); Mean Corpuscular Hemoglobin 29.5 PG (26-34); Mean Corpuscular Volume 87.1 fL (80-100); Monocytes Absolute Auto 600 /uL (0-900); Monocytes Percent Auto 9.6 % (3-14); Neutrophils Absolute Auto 4600 /uL (1500-7000); Neutrophils Percent Auto 68.6 % (50-75); Platelet Count 197 X10^3/uL (150-400); Red Blood Cell Count 4.09 X10^6/uL (4.5-5.9); White Blood Cell Count 6.7 X10^3/uL (4.5-11.0)
[2024-10-09 04:15] LABS: BUN Creatinine Ratio 12.4 (6-22); Blood Urea Nitrogen 15 mg/dL (9-20); Calcium 8.4 mg/dL (8.4-10.2); Carbon Dioxide 30 mmol/L (22-32); Chloride 103 mmol/L (98-107); Estimated Glomerular Filt Rate > 60 mL/min (>60); Glucose 138 mg/dL (80-110); HEMOLYSIS < 15 (0-50); Potassium 3.6 mmol/L (3.4-5.1); Sodium 134 mmol/L (137-145)
[2024-10-09 05:40] VITALS: BP 126/68; PULSE 69; RESP 18; TEMP 36.6; O2SAT 92
[2024-10-09] MEDS: ACETAMINOPHEN 325 MG TABLET 650 MG PO (06:52)
[2024-10-09] MEDS: PANTOPRAZOLE DR 20 MG TABLET PO (07:41)
[2024-10-09 07:44] VITALS: BP 142/85; PULSE 70; RESP 17; TEMP 36.6; O2SAT 92
[2024-10-09 09:02] VITALS: BP 142/85
[2024-10-09] MEDS: PREGABALIN 75 MG CAPSULE PO (09:02)
[2024-10-09] MEDS: lisinopriL 20 MG TABLET PO (09:02)
[2024-10-09] MEDS: SENNOSIDES 8.6 MG TABLET PO (09:03)
[2024-10-09] MEDS: TAMSULOSIN 0.4 MG CAPSULE PO (09:03)
[2024-10-09] MEDS: lamoTRIgine 100 MG TABLET 200 MG PO (09:03)
[2024-10-09] MEDS: MAGNESIUM HYDROXIDE 30 ML UDC PO (09:03)
[2024-10-09] MEDS: atenoloL 25 MG TABLET PO (09:03)
--- NOTE | 2024-10-09 11:50 | PC.NURSE ---
D/c instructions reviewed with Pt and spouse. Discussed no driving while taking opioids, and to continue with OTC stool softener for constipation. Pt given printed copies of prescriptions from Dr. Craig for oxycodone, pregabalin, senna, and tizanidine. IV removed. Pt exited via w/c with MEDICAL ASSISTANT and spouse to private vehicle.
--- NOTE | 2024-10-09 12:12 | CM.DPNOTE ---
DCP Note SUPERVISOR FITTING reviewed EMR. per RN report, pt eager to dc, ambulating in halls, and doing okay with pain today. Per hospitalist, likely dc today. Pt left prior to being seen by this SUPERVISOR FITTING. SUPERVISOR FITTING updated TCM team to notify of pt's discharge. P: home with spouse support and OP f/u recommended. CM team will continue to follow as needed CHIP Rucker
--- NOTE | 2024-10-09 17:48 | P.DS_ITS ---
History of Present Illness History of Present Illness Chief complaint: abd pain Narrative: Per H&P: The patient is a 69-year-old male who presented with acute abdominal pain. Has a history of type 1 diabetes which is insulin dependent, GERD, and seizure disorder. In the ED, he was found to have epigastric pain. He was no history of abdominal surgeries. Laboratory evaluation indicated elevated lipase and abnormal liver function tests. Imaging was consistent with pancreatitis. An MRCP was obtained to rule out common bile duct stone and was negative for dilation or stone. Case was discussed with General surgery, the patient will be admitted for gallstone pancreatitis and possible delayed lap laparoscopic cholecystectomy. The patient has had no recent symptoms and denies a history of gallbladder attacks. This morning he awoke at 3 in the morning with severe epigastric pain. The pain as progressive and there was some dyspepsia with a. It did not respond to Tums, or Pepto-Bismol. No recent vomiting, or diarrhea. Rarely drinks alcohol. He was no history of elevated triglycerides. Pain medications in the ED have helped. Discharge Providers Provider Date of admission: 10/06/24 09:28 Discharge Date: 10/09/24 Primary care physician: Marcio Rojo MD Consults: 10/06/24 15:56 Consult to General Surgery Routine Comment: Consulting Provider: Jaime Bettencourt Reason for consultation: gallstone pancreatitis Has provider been notified: Yes Discharge provider: Ana Craig MD Summary Hospital Course Discharge Diagnosis: 1. Postoperative day 2 from laparoscopic cholecystectomy for gallstone pancreatitis 2. Diabetes mellitus type 1 3. Seizure disorder 4. GERD 5. Hx of cervical spinal fusion (C3-7) 6. Hx of cauda equina syndrome, s/p L1-L2 lumbar laminectomy 7. Hx of L3-4, L4-5, L5-S1 lumbar fusion 8. BPH Hospital Course: Pt was admitted w/gallstone pancreatitis on 10/06/24. He underwent laparscopic cholecystectomy and intraoperative cholangiogram on 10/07/24. Post-operatively, he required supplemental oxygen and could not discharge. On the morning of 10/08/24, he had very difficult to control RUQ pain. He was receiving oxycodone 5 mg w/o benefit. It was increased to 10mg but he continued to have significant pain. Morphine was helpful. Over the course of the day, his pain improved. By 10/09/24, he was symptomatically much improved. After ongoing discussions, he shared that pain mgmt has been difficult for him w/his prior spine surgeries and he even required ketamine after one surgery d/t his difficult to control pain. At the time of discharge, he was feeling well w/good pain control, tolerating an oral diet and ambulating about the unit well. Status at Discharge Cognitive/behavioral status at discharge: at baseline, oriented Functional status at discharge: independent ambulation Overall status at discharge: patient is progressing back to baseline Time Spent with Patient Time spent: Greater than 30 minutes Exam Vital Signs (past 8 hours): Oxygen Delivery Method Nasal Cannula Oxygen Flow Rate 0 Narrative Exam Narrative: GEN: Alert and oriented x 3, appears very uncomfortable HEENT:NC, Face symmetric CHEST: Respiratory excursions symmetric, CTAB CV: RRR, no M/R/G ABD: Soft, reduced tenderness to palpation to the right upper quadrant near his surgical site, bruising noted around his umbilical site, BT hypoactive but present in all 4 quadrants, body habitus limits exam EXTR: warm, well perfused, no C/C/E SKIN: warm and dry, no rash, multiple old surgical scars to neck and lumbar spine NEURO: Alert and oriented x 3, nonfocal Objective Labs 10/09/24 03:45 10/09/24 03:45 Labs: Laboratory Results - last 24 hr 10/09/24 03:45 WBC 6.7 RBC 4.09 L Hgb 12.1 L Hct 35.6 L MCV 87.1 MCH 29.5 MCHC 33.8 RDW 14.0 Plt Count 197 Neut % (Auto) 68.6 Lymph % (Auto) 19.3 L [place] % (Auto) 9.6 Eos % (Auto) 2.2 Baso % (Auto) 0.3 Neut # (Auto) 4600 Lymph # (Auto) 1300 [place] # (Auto) 600 Eos # (Auto) 100 Baso # (Auto) 0 Sodium 134 L Potassium 3.6 Chloride 103 Carbon Dioxide 30 BUN 15 Creatinine 1.21 Estimated GFR > 60 BUN/Creatinine Ratio 12.4 Glucose 138 H Calcium 8.4 PFSH Medical History Urinary frequency Nocturia Obstructive sleep apnea Chronic low back pain Overweight Type 1 diabetes mellitus with hyperlipidemia GERD without esophagitis Erectile dysfunction 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 Mixed hyperlipidemia Essential hypertension 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 If you develop any increased pain, redness, fevers/chills, increasing blood sugars, return to the ED 2) Return to the ED for inability to hold down food/fluids 3) Take OTC senna/miralax until off pain medications 4) Follow up with general surgery in 2-4 weeks as needed Discharge orders & Medications Prescriptions: New sennosides [senna] 8.6 mg Tablet 8.6 mg PO BID Qty: 30 0RF tizanidine 4 mg Tablet 2 mg PO Q6H PRN (Reason: pain or spasms) Qty: 20 0RF pregabalin [Lyrica] 75 mg Capsule 75 mg PO BID Qty: 14 0RF oxycodone 5 mg tablet 5 mg PO Q4H PRN (Reason: pain) Qty: 20 0RF Continued lamotrigine 200 mg tablet 200 mg PO BID lisinopril 20 mg tablet 20 mg PO BID Qty: 180 3RF rosuvastatin 5 mg tablet 5 mg PO DAILY Qty: 90 3RF atenolol 25 mg tablet 25 mg PO DAILY Qty: 90 3RF scopolamine base 1 mg over 3 days patch 3 day 1 patch transdermal Q72H PRN (Reason: motion sickness) Qty: 4 3RF Rx Instructions: APPLY 1 patch TOPICALLY EVERY 72 HOURS Hours as needed for motion sickness sildenafil (pulm.hypertension) 20 mg tablet 20 - 100 mg PO DAILY PRN (Reason: sexual activity) Qty: 30 5RF (DME) Accu-Chek Guide test strips Strip See Rx Instructions .ROUTE 5XD Qty: 10 Rx Instructions: As directed tamsulosin 0.4 mg capsule 0.8 mg PO BEDTIME Qty: 180 3RF pantoprazole 20 mg tablet,delayed release (DR/EC) 20 mg PO BID insulin aspart U-100 [Novolog PenFill U-100 Insulin] 100 unit/mL Cartridge See Rx Instructions .ROUTE .COMPLEX Rx Instructions: insulin pump Follow up/Referrals: Marcio Rojo MD [Primary Care Provider] - Diet/Activity/Treatments Diet: Regular Activity: As tolerated Oxygen: N/A Skin/Wound/Dressing Care Dressing: glue will dry and fall off in 2-3 weeks Visit Report/Discharge Packet Instructions: DI for Prescription Opioid Use, DI for Laparoscopic Cholecystectomy Stand Alone Forms: Patient Portal/API, Stroke Signs & Symptoms, Surgery Discharge Discharge Data Primary Care Provider: Marcio Rojo V Quality VTE Deep Vein Thrombosis/Pulmonary Embolism Present on Admission: No
== END 2024-10-09 11:53 | disposition home or self-care (01) | DRG 417 ==
LOC: ED 09:24 → AC 09:29
PROVIDERS: Emergency Medicine; Family Medicine; Surgery; Admitting Provider Hospitalist; Emergency Provider Emergency Medicine; PCP Internal Medicine; Referring Provider Emergency Medicine; Visit Provider Hospitalist
PROC: 0FT44ZZ Resection of Gallbladder, Percutaneous Endoscopic Approach (ICD-10-PCS; CPT 47563; principal; 2024-10-07 16:00)
DX: K85.10 Biliary acute pancreatitis without necrosis or infection (principal); J96.01 Acute respiratory failure with hypoxia; K80.20 Calculus of gallbladder without cholecystitis without obstruction; E10.9 Type 1 diabetes mellitus without complications; G40.909 Epilepsy, unspecified, not intractable, without status epilepticus; K21.9 Gastro-esophageal reflux disease without esophagitis; N40.0 Benign prostatic hyperplasia without lower urinary tract symptoms; G89.18 Other acute postprocedural pain; I10 Essential (primary) hypertension; E78.5 Hyperlipidemia, unspecified; Z96.41 Presence of insulin pump (external) (internal)
CPT/HCPCS: 36415; 47563; 64450; 71045; 74177; 74181; 74300; 76705; 80048; 80053; 80076; 81003; 81015; 82550; 82962; 83605; 83690; 83735; 84484; 85025; 85610; 86140; 93005; 96361; 96374; 96375; 96376; 99222; 99284; 99285; J0330; J1100; J1171; J1885; J2060; J2270; J2405; J2704; J3010; Q9967

== ENCOUNTER → 2025-01-04 06:50 | Outpatient (CLI) | payer OTHER, SELFPAY ==
[2024-10-06 11:11] VITALS: BMI 28.3
--- NOTE | 2025-01-04 06:55 | DI.CT.S_ITS ---
PROCEDURE: CT UE LT WO CON INDICATIONS: tenosynovitis TECHNIQUE: Noncontrast 1 mm axial sections acquired through the carpal bones, with coronal and sagittal reformats. COMPARISON: None. FINDINGS: Image quality: Excellent. Bones: Carpal arthrodesis has been performed. There is a screw within the volar aspect of the lunate, and and adjacent screw within the proximal capitate, which may represent 2 separate fragments of a fractured lunatocapitate screw. There is no evidence of fusion at this intercarpal interface. Scattered subchondral cysts are present throughout the carpus. Soft tissues: Visualized soft tissues are within normal limits. No definite fluid collections nor soft tissue lesions. IMPRESSION: 1. Postsurgical sequelae. 2. Possibly fractured lunatocapitate screw. Correlation with r prior imaging/surgical history recommended. 3. Osteoarthritis. Dictated by: Liane Bedolla M.D. on 01/04/2025 at 9:06 Approved by: Liane Bedolla M.D. on 01/04/2025 at 9:12
[2025-01-04 07:50] LABS: Hemoglobin A1C% w Est Avg Glu 6.2 % (4.0-6.0)
== END ==
PROVIDERS: PCP Internal Medicine; Referring Provider Internal Medicine; Visit Provider Internal Medicine
DX: M65.842 Other synovitis and tenosynovitis, left hand (principal); Z96.41 Presence of insulin pump (external) (internal); E10.69 Type 1 diabetes mellitus with other specified complication; M19.032 Primary osteoarthritis, left wrist; Z98.890 Other specified postprocedural states
CPT/HCPCS: 36415; 73200; 83036

== ENCOUNTER → 2025-07-04 11:14 | Outpatient (CLI) | payer OTHER, SELFPAY ==
[2024-10-06 11:11] VITALS: BMI 28.3
--- NOTE | 2025-07-04 11:18 | DI.RAD.S_ITS ---
PROCEDURE: XR LUMBAR SPINE MIN 4V INDICATIONS: POSTLAMINECTOMY SYNDROME TECHNIQUE: 5 views of the lumbar spine were acquired, including bilateral oblique views. COMPARISON: None. FINDINGS: Bones: 5 nonrib-bearing vertebrae are present. Hardware status post L1-L2 posterior lumbar interbody fusion, L2-L3 discectomy and fusion and L4 through S1 discectomy and posterior lumbar interbody fusion without evidence of hardware complication. Retrolisthesis of L1 on L2 measures 6 mm and is preserved on flexion and extension. There is otherwise normal bony alignment. Severe T12-L1 and L1-L2 disc height loss with adjacent endplate sclerosis and anterior osteophytosis. No vertebral body compression fractures. No suspicious bony lesions. Soft tissues: Overlying bowel gas pattern is normal. No suspicious soft tissue calcifications. Flexion/extension: Mildly limited range of motion with preservation of alignment. IMPRESSION: Extensive multilevel postsurgical change without evidence of complication. Degenerative change and flexion/extension stable retrolisthesis of L1 on L2. No evidence of acute osseous abnormality. Dictated by: Arron Kidd M.D. on 07/05/2025 at 6:12 Approved by: Arron Kidd M.D. on 07/05/2025 at 6:14
== END ==
PROVIDERS: PCP Internal Medicine; Referring Provider Internal Medicine; Visit Provider Physician Assistant
DX: M96.1 Postlaminectomy syndrome, not elsewhere classified (principal); M47.816 Spondylosis without myelopathy or radiculopathy, lumbar region; M43.16 Spondylolisthesis, lumbar region; Z98.1 Arthrodesis status
CPT/HCPCS: 72110

== ENCOUNTER → 2025-07-21 14:37 | Outpatient (CLI) | payer OTHER, SELFPAY ==
[2024-10-06 11:11] VITALS: BMI 28.3
--- NOTE | 2025-07-21 14:38 | DI.CT.S_ITS ---
PROCEDURE: CT LUMBAR SPINE WO CON INDICATIONS: postlaminectomy syndrome TECHNIQUE: Noncontrast 3 mm thick sections acquired from the T12 level to the sacrum. Sagittal and coronal reformats were constructed. For radiation dose reduction, the following was used: automated exposure control. COMPARISON: None. FINDINGS: Image quality: Excellent. Bones: Degenerative retrolisthesis T12-L1 and L1-2. No acute vertebral body compression fractures. No suspicious lytic or blastic bony lesions. Solid posterolateral fusion mass from C3-4 through S1. Discectomy and fusion L2-3 through L5-S1. Decompressive laminotomies at L1-2 L4-5 and L5-S1 Nnamdi and screw instrumentation extends from L1 through S1. Periprosthetic lucency noted particularly associated with the S1 screws measuring up to 3 mm in thickness left lateral plate and screw instrumentation at L2-3 T12-L1: Vacuum disc phenomena. Disc bulge and arthropathy. Moderate central stenosis with ligamentum flavum laxity. Moderate bilateral foraminal stenosis L1-L2: Disc bulge and arthropathy. Posterior decompression. Moderate to severe bilateral foraminal stenosis. No central stenosis L2-L3: Discectomy and fusion. Arthropathy and ligamentum flavum laxity. Severe central stenosis. Moderate bilateral foraminal stenosis. L3-L4: Discectomy and fusion. Arthropathy. Mild central stenosis. Mild bilateral foraminal stenosis L4-L5: Discectomy and fusion. Posterior decompression. No central stenosis. No foraminal stenosis L5-S1: Discectomy and fusion. No central stenosis. Arthropathy. Soft tissues: No retroperitoneal masses or hematomas. Visualized aorta is normal in caliber. IMPRESSION: Instrumented lumbar spine discectomy and fusion with decompression. Evidence of loosening of the S1 pedicle screws. Degenerative changes associated with severe central stenosis L2-3 and moderate central stenosis at T12-L1 Approved by: Gerardo Campbell M.D. on 07/24/2025 at 18:12
== END ==
LOC: CT 14:37
PROVIDERS: PCP Internal Medicine; Referring Provider Physician Assistant; Visit Provider Physician Assistant
DX: M96.1 Postlaminectomy syndrome, not elsewhere classified (principal); M47.816 Spondylosis without myelopathy or radiculopathy, lumbar region; M47.817 Spondylosis without myelopathy or radiculopathy, lumbosacral region; M48.05 Spinal stenosis, thoracolumbar region; M48.061 Spinal stenosis, lumbar region without neurogenic claudication; Z98.1 Arthrodesis status
CPT/HCPCS: 72131

== ENCOUNTER → 2025-08-17 07:07 | Outpatient (CLI) | payer OTHER, SELFPAY ==
[2024-10-06 11:11] VITALS: BMI 28.3
--- NOTE | 2025-08-17 07:08 | DI.MRI.S_ITS ---
PROCEDURE: MR LUMBAR SPINE WO CON INDICATIONS: lower back pain, lower extremity numbness TECHNIQUE: Noncontrast sagittal T1 spin echo and T2 fast echo, sagittal STIR, and T2 fast spin echo through the lumbar spine. In cases with scoliosis, additional coronal T2 fast spin echo may be performed. COMPARISON: [facility], CT, CT ABDOMEN PELVIS W CON, 10/06/2024, 5:18. [facility], CR, XR LUMBAR SPINE MIN 4V, 07/04/2025, 11:27. [facility], CT, CT LUMBAR SPINE WO CON, 07/21/2025, 14:44. FINDINGS: Image quality: Excellent. Alignment and Curvature: Extensive instrumentation noted with posterior decompression and posterior lateral sukh and pedicle screw fixation of L1-L2, pedicle screws in L3, and bilateral sukh and pedicle screw fixation of L4 through S1. There is disc spacer placement at L2-L3, L3-L4, L4-L5, and L5-S1. There is remote anterior fusion at L5-S1. There has been posterior decompression at L4-L5. Mild retrolisthesis of T12 on L1. 5 mm retrolisthesis of L1 on L2. Bone Marrow: Extensive discogenic signal abnormality present involving the T12 and L1 vertebral bodies. No acute vertebral body compression fractures. Spinal Cord: Conus medullaris terminates at the L2 level. Visualized cord demonstrates normal signal and size. Paraspinous Soft Tissues: No paravertebral masses. T12-L1: Vacuum disc phenomenon noted on the recent CT. Extensive discogenic signal abnormality in the T12 and L1 vertebral bodies involving the entirety of the vertebral bodies. Prominent, large posterior disc osteophyte complex. Facet and ligament hypertrophy. Epidural lipomatosis. Severe canal stenosis with compression on the lower thoracic cord, well seen on sagittal image 10 of series 2. Moderate to severe bilateral foraminal narrowing. L1-L2: Severe chronic disc height loss. Retrolisthesis. Posterior lateral fusion. Posterior decompression. No canal stenosis. Moderate to severe bilateral foraminal stenosis. L2-L3: Pedicle screws without posterior lateral rods at L2-L3. Disc spacer. Posterior disc osteophyte complex. Facet and ligament hypertrophy. [id number] canal stenosis. No significant foraminal stenosis. L3-L4: Posterior lateral fusion. No canal stenosis or significant foraminal stenosis. L4-L5: Posterior decompression. Posterior lateral fusion. No canal stenosis or significant foraminal stenosis. L5-S1: Anterior fusion, posterior lateral fusion. No canal stenosis. Moderate to severe bilateral foraminal stenosis. IMPRESSION: 1. Extensive previous lumbar surgeries as described above. 2. Significant findings at T12-L1. Multifactorial severe canal stenosis with definite compression on the lower thoracic cord. There is also moderate to severe bilateral foraminal narrowing. 3. There is also moderate to severe bilateral foraminal narrowing at L1-L2 and L5-S1. 4. [id number] canal stenosis at L2-L3. Dictated by: Colton Montana M.D. on 08/17/2025 at 8:56 Approved by: Cloton Montana M.D. on 08/17/2025 at 9:10
== END ==
LOC: MRI 07:07
PROVIDERS: PCP Internal Medicine; Referring Provider Internal Medicine; Visit Provider Internal Medicine
DX: M48.05 Spinal stenosis, thoracolumbar region (principal); M48.061 Spinal stenosis, lumbar region without neurogenic claudication; M48.07 Spinal stenosis, lumbosacral region; M54.50 Low back pain, unspecified; R20.0 Anesthesia of skin; G89.29 Other chronic pain; Z98.1 Arthrodesis status
CPT/HCPCS: 72148

== ENCOUNTER → 2025-08-18 06:47 | Outpatient (CLI) | payer OTHER, SELFPAY ==
[2024-10-06 11:11] VITALS: BMI 28.3
[2025-08-18 07:48] LABS: Hemoglobin A1C% w Est Avg Glu 6.6 % (4.0-6.0)
[2025-08-18 07:55] LABS: Blood Urea Nitrogen 14 mg/dL (9-20); Calcium 9.3 mg/dL (8.4-10.2); Carbon Dioxide 29 mmol/L (22-32); Chloride 104 mmol/L (98-107); Cholesterol 121 mg/dL (140-199); Estimated Glomerular Filt Rate > 60 mL/min (>60); Glucose 76 mg/dL (70-99); HDL Cholesterol 65 mg/dL (40-60); HEMOLYSIS < 15 (0-50); Potassium 4.3 mmol/L (3.4-5.1); Sodium 140 mmol/L (137-145); Triglycerides 111 mg/dL (35-150)
[2025-08-18 08:27] LABS: Prostate Specific Antigen 2.07 ng/mL (0.10-4.00)
[2025-08-18 09:15] LABS: Microalbumi Creatinin Ratio Ur 7.0 ug/mg CR (<30)
== END ==
PROVIDERS: PCP Internal Medicine; Referring Provider Internal Medicine; Visit Provider Internal Medicine
DX: N40.1 Benign prostatic hyperplasia with lower urinary tract symptoms (principal); N13.8 Other obstructive and reflux uropathy; E10.69 Type 1 diabetes mellitus with other specified complication; E78.5 Hyperlipidemia, unspecified; E78.2 Mixed hyperlipidemia
CPT/HCPCS: 36415; 80048; 80061; 82043; 82570; 83036; 84153; 84450

== ENCOUNTER 2025-09-21 18:33 | Emergency (ER) | payer OTHER, SELFPAY ==
[2024-10-06 11:11] VITALS: BMI 28.3
[2025-09-21] VITALS (16 sets, daily range): BP systolic 112–148; BP diastolic 58–90; PULSE 76–109; RESP 12–23; TEMP 37.6–39.4; O2SAT 91–97; BMI 25.8
--- NOTE | 2025-09-21 18:47 | DI.RAD.S_ITS ---
PROCEDURE: XR CHEST 1V INDICATIONS: fever post op TECHNIQUE: One view of the chest was acquired. COMPARISON: [facility], CR, XR CHEST 1V, 10/06/2024, 5:15. FINDINGS: Surgical changes and devices: Cervical and lumbar hardware. Nerve stimulator device power pack projecting over the right chest. Lungs and pleura: Lungs are clear. No pleural effusions or pneumothorax. Mediastinum: Mediastinal contours appear normal. Heart size is normal. Bones and chest wall: No suspicious bony lesions. Overlying soft tissues appear unremarkable. IMPRESSION: No acute cardiopulmonary abnormality is seen. Dictated by: Christine Car M.D. on 09/21/2025 at 19:39 Approved by: Christine Car M.D. on 09/21/2025 at 19:39
[2025-09-21 18:59] LABS: Add Manual Diff / Slide Review NO; Hematocrit 27.4 % (41-53); Hemoglobin 9.5 g/dL (13.5-17.5); Lymphocytes Absolute Auto 700 /uL (1100-4500); Mean Corpuscular HGB Conc 34.7 % (30-36); Mean Corpuscular Hemoglobin 29.6 PG (26-34); Mean Corpuscular Volume 85.2 fL (80-100); Platelet Count 444 X10^3/uL (150-400)
[2025-09-21 19:07] LABS: Creatine Kinase 31 U/L (55-170); Lactate (Lactic Acid) 2.5 mmol/L (0.7-2.1)
[2025-09-21 19:09] LABS: Alanine Aminotransferase 33 IU/L (<50); Albumin 2.7 g/dL (3.5-5.0); Albumin Globulin Ratio 1.0 (1.0-2.8); Alkaline Phosphatase 250 U/L (38-126); Blood Urea Nitrogen 17 mg/dL (9-20); Calcium 7.5 mg/dL (8.4-10.2); Carbon Dioxide 26 mmol/L (22-32); Chloride 96 mmol/L (98-107); Estimated Glomerular Filt Rate > 60 mL/min (>60); Globulin 2.7 g/dL (1.7-4.1); Glucose 173 mg/dL (70-99); HEMOLYSIS 32 (0-50); Potassium 4.6 mmol/L (3.4-5.1); Sodium 130 mmol/L (137-145); Total Protein 5.4 g/dL (6.3-8.2)
[2025-09-21 19:13] LABS: Base Excess VBG 4.0 mmol/L (0-4); HCO3 VBG 25 mmol/L (24-28); Oxygen Saturation VBG 97 % (70-75); PCO2 VBG 23.3 mmHg (45-50); PO2 VBG 68 mmHg (35-45); Total CO2 VBG 23 mmol/L (24-29); pH VBG 7.63 (7.33-7.43)
[2025-09-21 19:15] LABS: Ketones (Beta-Hydroxybutyrate) 0.03 mmol/L (<0.27)
[2025-09-21] MEDS: SODIUM CHLORIDE 0.9% 1,000 ML 1000 ML IV (19:19)
[2025-09-21] MEDS: cefTRIAXone 2,000 MG in SODIUM CHLORIDE 0.9% 100 ML 200 MG IV (19:20)
[2025-09-21 19:23] LABS: Troponin I < 0.012 ng/mL (0.01-0.034)
[2025-09-21] MEDS: KETOROLAC 30 MG/ML VIAL 15 MG IV (19:23)
--- NOTE | 2025-09-21 19:26 | ED.FEVER ---
HPI - Fever General Chief Complaint: Fever Stated Complaint: Pain, fever 100.6 Time Seen by Provider: 09/21/25 18:46 Source: EMS Mode of arrival: EMS History of Present Illness HPI Narrative: Patient is a 69-year-old male history of insulin-dependent diabetes hypertension hyperlipidemia BPH postop back surgery from T8-S1. Surgery was done at [facility] he had a complicated stay requiring an ICU admission he had postop delirium as well. He has only been home for about 1 week. Surgery was done on August 31. has been monitoring his temperature daily. Today he started to get a fever which was slowly rising he is now febrile at 103F. He is having increasing back pain and feels like he has got some medial thigh pain as well. He is having frequent dark urination. No cough chest pain or sore throat. reports that he has had decrease in appetite she was able to get an ensure down him today. He has been taking at home Dilaudid which sometimes helps for his pain however they are careful due to the postoperative delirium he suffered. He denies any abdominal pain nausea or vomiting. Related Data Home Medications ?Medication ?Instructions ?Recorded ?Confirmed lamotrigine 200 mg tablet 200 mg PO BID 09/03/23 09/25/25 blood sugar diagnostic (Accu-Chek #10 ea 09/15/23 09/25/25 Guide test strips) pantoprazole 20 mg tablet,delayed 20 mg PO BID 04/26/24 09/25/25 release acetaminophen 500 mg tablet 1,000 mg PO TID PRN 09/25/25 09/25/25 (Tylenol Extra Strength) hydromorphone 2 mg tablet 2 mg PO Q4H PRN pain 09/25/25 09/25/25 ibuprofen 200 mg tablet 400 mg PO Q6H 09/25/25 09/25/25 polyethylene glycol 3350 17 17 g PO DAILY 09/25/25 09/25/25 gram/dose oral powder (Miralax) sulfamethoxazole 800 1 tab PO BID 09/25/25 09/25/25 mg-trimethoprim 160 mg tablet (Bactrim DS) tadalafil 5 mg tablet (Cialis) 5 mg PO DAILY PRN 09/25/25 09/25/25 Previous Rx's ?Medication ?Instructions ?Recorded rosuvastatin 5 mg tablet 5 mg PO DAILY #90 tabs 01/12/25 atenolol 25 mg tablet 25 mg PO DAILY #90 tabs 01/17/25 lisinopril 20 mg tablet 20 mg PO BID #180 tabs 03/08/25 celecoxib 200 mg capsule 200 mg PO BID #60 caps 05/02/25 Held on 09/25/25. Instructions: holding while using other NSAIDs insulin aspart U-100 100 unit/mL See Rx Instructions .Route 08/15/25 subcutaneous cartridge (Novolog .COMPLEX #20 mL PenFill U-100 Insulin aspart) Allergies Allergy/AdvReac Type Severity Reaction Status Date / Time gabapentin AdvReac Intermediate agitation Verified 09/21/25 18:46 pregabalin (From Lyrica) AdvReac Intermediate agitation Verified 09/21/25 18:46 codeine AdvReac Mild Nausea Verified 09/21/25 18:46 tramadol AdvReac Mild lower Verified 09/21/25 18:46 seizure threshold Patient History Medical History (Updated 09/22/25 @ 05:02 by Virginia Amaral DO) Chronic, continuous use of opioids History of colonic polyps Urinary frequency Nocturia Obstructive sleep apnea Chronic low back pain Overweight Type 1 diabetes mellitus with hyperlipidemia GERD without esophagitis Erectile dysfunction 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 Mixed hyperlipidemia Essential hypertension Surgical History Hx laparoscopic cholecystectomy 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 HEENT: Head atraumatic,EOMI, pupils reactive, face symmetric, moist mucous membranes CARDIOVASCULAR: Regular rate and rhythm without murmurs, rubs or gallops. RESPIRATORY: Breath sounds equal bilaterally, no wheezes rales or rhonchi. ABDOMEN: Soft, nontender. Normoactive bowel sounds all 4 quadrants. No guarding or rebound. BACK: Incision site appears to be healing sutures and ivan in place no significant surrounding erythema EXTREMITIES: Normal range of motion, no clubbing or edema. Neurovascularly intact NEUROLOGICAL: Alert and oriented x4.Normal gait and speech. Cranial nerves II through XII grossly intact. Right leg is definitely weaker than the left leg SKIN: Warm, dry, no laceration, no petechiae, no rashes or lesions. Course Orders Ordered: Discontinued Medications Hydromorphone HCl (Hydromorphone Hcl 0.5 Mg/0.5 Ml Syringe) 0.5 mg IV NOW ONE Stop: 09/22/25 01:58 Last Admin: 09/22/25 02:02 Dose: 0.5 mg Documented By: Hydromorphone HCl (Hydromorphone 1 Mg/Ml Syringe) 1 mg IV Q2HR PRN PRN Reason: Pain, Moderate (4-6) Last Admin: 09/22/25 14:35 Dose: 1 mg Documented By: Admin: 09/22/25 03:26 Dose: 1 mg Documented By: Sodium Chloride (Normal Saline 0.9%) 1,000 mls @ 1,000 mls/hr IV BOLUS ONE Stop: 09/21/25 19:45 Last Infusion: 09/21/25 20:12 Dose: Infused Documented By: [facility] Admin: 09/21/25 19:19 Dose: 1,000 mls/hr Documented By: DIANA Ceftriaxone Sodium 2,000 mg/ (Sodium Chloride) 100 mls @ 200 mls/hr IV NOW ONE Stop: 09/21/25 18:47 Last Infusion: 09/21/25 19:57 Dose: Infused Documented By: [facility] Admin: 09/21/25 19:20 Dose: 200 mls/hr Documented By: DIANA Sodium Chloride (Normal Saline 0.9%) 2,721.54 mls @ 1,814.36 mls/hr 30 ml/kg infuse over 90 min (2721.54 ml) IV NOW ONE Stop: 09/21/25 21:33 Last Infusion: 09/21/25 20:38 Dose: Infused Documented By: [facility] Admin: 09/21/25 20:13 Dose: 1,814.36 mls/hr Documented By: DIANA Sodium Chloride (Normal Saline 0.9%) 1,000 mls @ 100 mls/hr IV CONT ELAINA Last Admin: 09/22/25 06:58 Dose: 100 mls/hr Documented By: Vancomycin HCl/Dextrose (Vancomycin) 1,750 mg in 350 mls @ 175 mls/hr IV NOW ONE Stop: 09/22/25 08:01 Last Infusion: 09/22/25 09:00 Dose: Infused Documented By: Admin: 09/22/25 06:58 Dose: 175 mls/hr Documented By: Acetaminophen (Ofirmev) 1,000 mg in 100 mls @ 400 mls/hr IV Q4HR PRN PRN Reason: Pain or Fever Last Infusion: 09/22/25 13:19 Dose: Infused Documented By: Admin: 09/22/25 12:21 Dose: 400 mls/hr Documented By: DIANA Ketorolac Tromethamine (Ketorolac 30 Mg/Ml Vial) 15 mg IV NOW ONE Stop: 09/21/25 19:12 Last Admin: 09/21/25 19:23 Dose: 15 mg Documented By: DIANA Ondansetron HCl (Ondansetron 4 Mg/2 Ml Inj) 4 mg IV NOW ONE Stop: 09/22/25 14:26 Last Admin: 09/22/25 14:34 Dose: 4 mg Documented By: DIANA Vital Signs Vital signs: Vital Signs - 8 hr 09/21/25 21:00 09/21/25 21:00 09/21/25 21:30 Pulse Rate 83 Respiratory Rate 18 Blood Pressure 112/59 L 125/59 L Pulse Oximetry 93 Oxygen Delivery Method 09/21/25 21:30 09/21/25 22:00 09/21/25 22:00 Pulse Rate 79 80 Respiratory Rate 12 14 Blood Pressure 123/61 Pulse Oximetry 91 92 Oxygen Delivery Method 09/21/25 22:30 09/21/25 22:30 09/21/25 23:00 Pulse Rate 78 76 Respiratory Rate 13 16 Blood Pressure 120/65 Pulse Oximetry 92 Oxygen Delivery Method Room Air 09/21/25 23:30 09/21/25 23:45 09/21/25 23:45 Pulse Rate 76 80 Respiratory Rate 19 18 Blood Pressure 148/70 H Pulse Oximetry 97 Oxygen Delivery Method 09/22/25 00:00 09/22/25 00:00 09/22/25 00:30 Pulse Rate 77 76 Respiratory Rate 17 16 Blood Pressure 144/77 H Pulse Oximetry 94 94 Oxygen Delivery Method Room Air 09/22/25 00:30 09/22/25 01:00 09/22/25 01:00 Pulse Rate 76 Respiratory Rate 19 Blood Pressure 155/74 H 147/75 H Pulse Oximetry 96 Oxygen Delivery Method 09/22/25 01:30 09/22/25 01:31 09/22/25 01:31 Pulse Rate 80 82 Respiratory Rate 21 17 Blood Pressure 173/84 H Pulse Oximetry 97 97 Oxygen Delivery Method Room Air MDM - Fever Lab Data 09/21/25 18:44 09/21/25 18:44 Labs: Lab Results 09/21/25 09/21/25 09/21/25 Range/Units 18:44 19:10 19:17 WBC 10.6 (4.5-11.0) X10^3/uL RBC 3.21 L (4.5-5.9) X10^6/uL Hgb 9.5 L (13.5-17.5) g/dL Hct 27.4 L (41-53) % MCV 85.2 (80-100) fL MCH 29.6 (26-34) PG MCHC 34.7 (30-36) % RDW 14.2 (11.6-14.8) % Plt Count 444 H (150-400) X10^3/uL Neut % (Auto) 85.8 H (50-75) % Lymph % (Auto) 6.7 L (25-40) % Pitkin % (Auto) 6.6 (3-14) % Eos % (Auto) 0.5 L (2-4) % Baso % (Auto) 0.4 (0-2) % Neut # (Auto) 9100 H (7861-1398) /uL Lymph # (Auto) 700 L (8306-8983) /uL Pitkin # (Auto) 700 (0-900) /uL Eos # (Auto) 100 (0-450) /uL Baso # (Auto) 0 (0-100) /uL ESR 67 H (0-15) MM/HR VBG pH 7.63 H (7.33-7.43) VBG pCO2 23.3 L (45-50) mmHg VBG pO2 68 H (35-45) mmHg VBG HCO3 25 (24-28) mmol/L VBG Total CO2 23 L (24-29) mmol/L VBG O2 Saturation 97 H (70-75) % VBG Base Excess 4.0 (0-4) mmol/L Sodium 130 L (137-145) mmol/L Potassium 4.6 (3.4-5.1) mmol/L Chloride 96 L (98-107) mmol/L Carbon Dioxide 26 (22-32) mmol/L BUN 17 (9-20) mg/dL Creatinine 1.14 (0.66-1.25) mg/dL Estimated GFR > 60 (>60) mL/min BUN/Creatinine Ratio 14.9 (6-22) Glucose 173 H (70-99) mg/dL POC Whole Bld Glucose (70-99) mg/dL Lactate 2.5 H (0.7-2.1) mmol/L Calcium 7.5 L (8.4-10.2) mg/dL Total Bilirubin 0.8 (0.2-1.3) mg/dL AST 49 (17-59) IU/L ALT 33 (<50) IU/L Alkaline Phosphatase 250 H (38-126) U/L Total Creatine Kinase 31 L (55-170) U/L Troponin I < 0.012 (0.01-0.034) ng/mL C-Reactive Protein 16.5 H (<1.0) mg/dL Total Protein 5.4 L (6.3-8.2) g/dL Albumin 2.7 L (3.5-5.0) g/dL Globulin 2.7 (1.7-4.1) g/dL Albumin/Globulin Ratio 1.0 (1.0-2.8) Procalcitonin 1.06 H (<0.5) ng/mL Urine Color Urine Appearance Urine pH (4.5-8.0) Ur Specific Salvo (1.000-1.035) Urine Protein (Negative) Urine Glucose (UA) (Negative) g/dL Urine Ketones (NEGATIVE) Urine Occult Blood (Negative) Urine Nitrate (Negative) Urine Bilirubin (NEGATIVE) Ur Bilirubin Confirm (Negative) Urine Urobilinogen (0.2) E.U./dL Ur Leukocyte Esterase (NEGATIVE) Urine RBC (0-5/HPF) Urine WBC (0-5/HPF) Ur Squamous Epith Cells (0-5/HPF) Urine Bacteria (None) Ur Culture Indicated? Micro UA Comment Vol Urine Centrifuged Ketones 0.03 (<0.27) mmol/L A.calcoaceticus-baumannii cmplx PCR Not detected (Not Detect) Bacteroides fragilis Not detected (Not Detect) Emmanuelle albicans (PCR) Not detected (Not Detect) Emmanuelle auris (PCR) Not detected (Not Detect) C. glabrata (PCR) Not detected (Not Detect) C. krusei (PCR) Not detected (Not Detect) C. parapsilosis (PCR) Not detected (Not Detect) C. tropicalis (PCR) Not detected (Not Detect) SARS-CoV-2 (PCR) (Negative) C. neoform/gattii (PCR) Not detected (Not Detect) Enterobacterales (PCR) Detected (Not Detect) E. cloacae complex PCR Not detected (Not Detect) Enterococc faecalis PCR Not detected (Not Detect) Enterococc faecium PCR Not detected (Not Detect) E. coli (PCR) Detected (Not Detect) H. influenzae (PCR) Not detected (Not Detect) Influenza A (RT-PCR) (NEGATIVE) Influenza B (RT-PCR) (NEGATIVE) Klebsiella aerogenes (PCR) Not detected (Not Detect) Klebsiella oxytoca PCR Not detected (Not Detect) Klebsiella pneumoniae Not detected (Not Detect) List. monocytogenes PCR Not detected (Not Detect) N. meningitidis (PCR) Not detected (Not Detect) Proteus species (PCR) Not detected (Not Detect) RSV (PCR) (Negative) Salmonella spp. (PCR) Not detected (Not Detect) Serratia marcescens PCR Not detected (Not Detect) Staphylococcus sp PCR Not detected (Not Detect) Staph aureus (PCR) Not detected (Not Detect) mecA/C & MREJ Resist Gene Not applicable (Not Detect) mecA/C-Methicil Resis Gene Not applicable (Not Detect) mcr-1 Colistin Res Gene PCR Not detected (Not Detect) Staph epidermidis (PCR) Not detected (Not Detect) Staph lugdunensis PCR Not detected (Not Detect) S. maltophilia (PCR) Not detected (Not Detect) Streptococcus sp PCR Not detected (Not Detect) Group A Strep (PCR) Not detected (Not Detect) Strep agalactiae (PCR) Not detected (Not Detect) Strep pneumoniae (PCR) Not detected (Not Detect) P. aeruginosa (PCR) Not detected (Not Detect) Cristian/B-Vanco Res Genes Not applicable (Not Detect) blaIMP Car res Gene PCR Not detected (Not Detect) KPC-Carbap Res Gene PCR Not detected (Not Detect) blaNDM Car Res Gene PCR Not detected (Not Detect) OXA-48 Carbapenem Resis Gene (PCR) Not detected (Not Detect) blaVIM Car Res Gene PCR Not detected (Not Detect) CTX-M Gene Resistance (PCR) Detected (Not Detect) 09/21/25 09/21/25 09/21/25 Range/Units 19:22 20:43 21:24 WBC (4.5-11.0) X10^3/uL RBC (4.5-5.9) X10^6/uL Hgb (13.5-17.5) g/dL Hct (41-53) % MCV (80-100) fL MCH (26-34) PG MCHC (30-36) % RDW (11.6-14.8) % Plt Count (150-400) X10^3/uL Neut % (Auto) (50-75) % Lymph % (Auto) (25-40) % Pitkin % (Auto) (3-14) % Eos % (Auto) (2-4) % Baso % (Auto) (0-2) % Neut # (Auto) (3053-4352) /uL Lymph # (Auto) (4806-1087) /uL Pitkin # (Auto) (0-900) /uL Eos # (Auto) (0-450) /uL Baso # (Auto) (0-100) /uL ESR (0-15) MM/HR VBG pH (7.33-7.43) VBG pCO2 (45-50) mmHg VBG pO2 (35-45) mmHg VBG HCO3 (24-28) mmol/L VBG Total CO2 (24-29) mmol/L VBG O2 Saturation (70-75) % VBG Base Excess (0-4) mmol/L Sodium (137-145) mmol/L Potassium (3.4-5.1) mmol/L Chloride (98-107) mmol/L Carbon Dioxide (22-32) mmol/L BUN (9-20) mg/dL Creatinine (0.66-1.25) mg/dL Estimated GFR (>60) mL/min BUN/Creatinine Ratio (6-22) Glucose (70-99) mg/dL POC Whole Bld Glucose (70-99) mg/dL Lactate 0.8 (0.7-2.1) mmol/L Calcium (8.4-10.2) mg/dL Total Bilirubin (0.2-1.3) mg/dL AST (17-59) IU/L ALT (<50) IU/L Alkaline Phosphatase (38-126) U/L Total Creatine Kinase (55-170) U/L Troponin I (0.01-0.034) ng/mL C-Reactive Protein (<1.0) mg/dL Total Protein (6.3-8.2) g/dL Albumin (3.5-5.0) g/dL Globulin (1.7-4.1) g/dL Albumin/Globulin Ratio (1.0-2.8) Procalcitonin (<0.5) ng/mL Urine Color Yellow Urine Appearance Sl cloudy Urine pH 5.5 (4.5-8.0) Ur Specific Salvo 1.015 (1.000-1.035) Urine Protein 2+ H (Negative) Urine Glucose (UA) Negative (Negative) g/dL Urine Ketones Trace H (NEGATIVE) Urine Occult Blood 2+ H (Negative) Urine Nitrate Positive H (Negative) Urine Bilirubin 1+ H (NEGATIVE) Ur Bilirubin Confirm Negative (Negative) Urine Urobilinogen 1.0 (0.2) E.U./dL Ur Leukocyte Esterase 3+ H (NEGATIVE) Urine RBC 5-10/hpf H (0-5/HPF) Urine WBC >100/hpf H (0-5/HPF) Ur Squamous Epith Cells 1-5 /hpf (0-5/HPF) Urine Bacteria Many (>30) H (None) Ur Culture Indicated? Specimen cultured Micro UA Comment Wbc clumps present Vol Urine Centrifuged 10ml (spun) Ketones (<0.27) mmol/L A.calcoaceticus-baumannii cmplx PCR (Not Detect) Bacteroides fragilis (Not Detect) Emmanuelle albicans (PCR) (Not Detect) Emmanuelle auris (PCR) (Not Detect) C. glabrata (PCR) (Not Detect) C. krusei (PCR) (Not Detect) C. parapsilosis (PCR) (Not Detect) C. tropicalis (PCR) (Not Detect) SARS-CoV-2 (PCR) Negative (Negative) C. neoform/gattii (PCR) (Not Detect) Enterobacterales (PCR) (Not Detect) E. cloacae complex PCR (Not Detect) Enterococc faecalis PCR (Not Detect) Enterococc faecium PCR (Not Detect) E. coli (PCR) (Not Detect) H. influenzae (PCR) (Not Detect) Influenza A (RT-PCR) Flu a negative (NEGATIVE) Influenza B (RT-PCR) Flu b negative (NEGATIVE) Klebsiella aerogenes (PCR) (Not Detect) Klebsiella oxytoca PCR (Not Detect) Klebsiella pneumoniae (Not Detect) List. monocytogenes PCR (Not Detect) N. meningitidis (PCR) (Not Detect) Proteus species (PCR) (Not Detect) RSV (PCR) Negative (Negative) Salmonella spp. (PCR) (Not Detect) Serratia marcescens PCR (Not Detect) Staphylococcus sp PCR (Not Detect) Staph aureus (PCR) (Not Detect) mecA/C & MREJ Resist Gene (Not Detect) mecA/C-Methicil Resis Gene (Not Detect) mcr-1 Colistin Res Gene PCR (Not Detect) Staph epidermidis (PCR) (Not Detect) Staph lugdunensis PCR (Not Detect) S. maltophilia (PCR) (Not Detect) Streptococcus sp PCR (Not Detect) Group A Strep (PCR) (Not Detect) Strep agalactiae (PCR) (Not Detect) Strep pneumoniae (PCR) (Not Detect) P. aeruginosa (PCR) (Not Detect) Cristian/B-Vanco Res Genes (Not Detect) blaIMP Car res Gene PCR (Not Detect) KPC-Carbap Res Gene PCR (Not Detect) blaNDM Car Res Gene PCR (Not Detect) OXA-48 Carbapenem Resis Gene (PCR) (Not Detect) blaVIM Car Res Gene PCR (Not Detect) CTX-M Gene Resistance (PCR) (Not Detect) 09/22/25 Range/Units 05:52 WBC (4.5-11.0) X10^3/uL RBC (4.5-5.9) X10^6/uL Hgb (13.5-17.5) g/dL Hct (41-53) % MCV (80-100) fL MCH (26-34) PG MCHC (30-36) % RDW (11.6-14.8) % Plt Count (150-400) X10^3/uL Neut % (Auto) (50-75) % Lymph % (Auto) (25-40) % Pitkin % (Auto) (3-14) % Eos % (Auto) (2-4) % Baso % (Auto) (0-2) % Neut # (Auto) (7477-7959) /uL Lymph # (Auto) (4215-3100) /uL Pitkin # (Auto) (0-900) /uL Eos # (Auto) (0-450) /uL Baso # (Auto) (0-100) /uL ESR (0-15) MM/HR VBG pH (7.33-7.43) VBG pCO2 (45-50) mmHg VBG pO2 (35-45) mmHg VBG HCO3 (24-28) mmol/L VBG Total CO2 (24-29) mmol/L VBG O2 Saturation (70-75) % VBG Base Excess (0-4) mmol/L Sodium (137-145) mmol/L Potassium (3.4-5.1) mmol/L Chloride (98-107) mmol/L Carbon Dioxide (22-32) mmol/L BUN (9-20) mg/dL Creatinine (0.66-1.25) mg/dL Estimated GFR (>60) mL/min BUN/Creatinine Ratio (6-22) Glucose (70-99) mg/dL POC Whole Bld Glucose 107 H (70-99) mg/dL Lactate (0.7-2.1) mmol/L Calcium (8.4-10.2) mg/dL Total Bilirubin (0.2-1.3) mg/dL AST (17-59) IU/L ALT (<50) IU/L Alkaline Phosphatase (38-126) U/L Total Creatine Kinase (55-170) U/L Troponin I (0.01-0.034) ng/mL C-Reactive Protein (<1.0) mg/dL Total Protein (6.3-8.2) g/dL Albumin (3.5-5.0) g/dL Globulin (1.7-4.1) g/dL Albumin/Globulin Ratio (1.0-2.8) Procalcitonin (<0.5) ng/mL Urine Color Urine Appearance Urine pH (4.5-8.0) Ur Specific Salvo (1.000-1.035) Urine Protein (Negative) Urine Glucose (UA) (Negative) g/dL Urine Ketones (NEGATIVE) Urine Occult Blood (Negative) Urine Nitrate (Negative) Urine Bilirubin (NEGATIVE) Ur Bilirubin Confirm (Negative) Urine Urobilinogen (0.2) E.U./dL Ur Leukocyte Esterase (NEGATIVE) Urine RBC (0-5/HPF) Urine WBC (0-5/HPF) Ur Squamous Epith Cells (0-5/HPF) Urine Bacteria (None) Ur Culture Indicated? Micro UA Comment Vol Urine Centrifuged Ketones (<0.27) mmol/L A.calcoaceticus-baumannii cmplx PCR (Not Detect) Bacteroides fragilis (Not Detect) Emmanuelle albicans (PCR) (Not Detect) Emmanuelle auris (PCR) (Not Detect) C. glabrata (PCR) (Not Detect) C. krusei (PCR) (Not Detect) C. parapsilosis (PCR) (Not Detect) C. tropicalis (PCR) (Not Detect) SARS-CoV-2 (PCR) (Negative) C. neoform/gattii (PCR) (Not Detect) Enterobacterales (PCR) (Not Detect) E. cloacae complex PCR (Not Detect) Enterococc faecalis PCR (Not Detect) Enterococc faecium PCR (Not Detect) E. coli (PCR) (Not Detect) H. influenzae (PCR) (Not Detect) Influenza A (RT-PCR) (NEGATIVE) Influenza B (RT-PCR) (NEGATIVE) Klebsiella aerogenes (PCR) (Not Detect) Klebsiella oxytoca PCR (Not Detect) Klebsiella pneumoniae (Not Detect) List. monocytogenes PCR (Not Detect) N. meningitidis (PCR) (Not Detect) Proteus species (PCR) (Not Detect) RSV (PCR) (Negative) Salmonella spp. (PCR) (Not Detect) Serratia marcescens PCR (Not Detect) Staphylococcus sp PCR (Not Detect) Staph aureus (PCR) (Not Detect) mecA/C & MREJ Resist Gene (Not Detect) mecA/C-Methicil Resis Gene (Not Detect) mcr-1 Colistin Res Gene PCR (Not Detect) Staph epidermidis (PCR) (Not Detect) Staph lugdunensis PCR (Not Detect) S. maltophilia (PCR) (Not Detect) Streptococcus sp PCR (Not Detect) Group A Strep (PCR) (Not Detect) Strep agalactiae (PCR) (Not Detect) Strep pneumoniae (PCR) (Not Detect) P. aeruginosa (PCR) (Not Detect) Cristian/B-Vanco Res Genes (Not Detect) blaIMP Car res Gene PCR (Not Detect) KPC-Carbap Res Gene PCR (Not Detect) blaNDM Car Res Gene PCR (Not Detect) OXA-48 Carbapenem Resis Gene (PCR) (Not Detect) blaVIM Car Res Gene PCR (Not Detect) CTX-M Gene Resistance (PCR) (Not Detect) Imaging Data Chest x-ray: Radiologist's Impression: PROCEDURE: XR CHEST 1V INDICATIONS: fever post op TECHNIQUE: One view of the chest was acquired. COMPARISON: [facility], , XR CHEST 1V, 10/06/2024, 5:15. FINDINGS: Surgical changes and devices: Cervical and lumbar hardware. Nerve stimulator device power pack projecting over the right chest. Lungs and pleura: Lungs are clear. No pleural effusions or pneumothorax. Mediastinum: Mediastinal contours appear normal. Heart size is normal. Bones and chest wall: No suspicious bony lesions. Overlying soft tissues appear unremarkable. IMPRESSION: No acute cardiopulmonary abnormality is seen. Dictated by: Christine Car M.D. on 09/21/2025 at 19:39 CT lumbar: Radiologist's Impression: PROCEDURE: CT LUMBAR SPINE WO/W CON INDICATIONS: post op fever TECHNIQUE: After the administration of intravenous Isovue contrast, 3 mm thick sections acquired through the levels of interest. Sagittal and coronal reformats were then constructed. For radiation dose reduction, the following was used: automated exposure control. COMPARISON: None. FINDINGS: Image quality: Excellent. Bones: Status post spine instrumentation and posterior spinal fixation of the T9 through sacral levels with posterior element intervention from T12-L2, and intervertebral disc spacers in the lumbar spine. Multilevel degenerative changes of the lumbar spine without residual high-grade bony spinal canal or foraminal stenosis. Small lucencies are seen Soft tissues: Large postoperative posterior paraspinal fluid collection measuring approximately 9.0 x 5.8 x 21 cm, sterility indeterminate on noncontrast imaging. Partially visualized small bilateral pleural effusions. IMPRESSION: Status post posterior thoracolumbar intervention and posterior fusion. Large postoperative posterior paraspinal fluid collection measuring approximately 9.0 x 5.8 x 21 cm, sterility indeterminate on noncontrast imaging. Partially visualized small bilateral pleural effusions. Dictated by: Spencer Earl M.D. on 09/22/2025 at 2:00 Approved by: Spencer Earl M.D. on 09/22/2025 at 2:09 CT thoracic: Radiologist's Impression: PROCEDURE: CT THORACIC SPINE WO CON INDICATIONS: post op fever TECHNIQUE: A3 mm thick sections acquired through the levels of interest. Sagittal and coronal reformats were then constructed. For radiation dose reduction, the following was used: automated exposure control. COMPARISON: None. FINDINGS: Image quality: Excellent. Bones: Degenerative changes of the visualized cervical spine. Status post posterior spinal fixation of the T9 through sacral levels with posterior element intervention from T12-L2. Multilevel degenerative changes of the thoracic spine with moderate bony spinal canal narrowing at T10-T11 as well as severe bony foraminal stenosis bilaterally at T10-T11 and on the left at T9-T10. Soft tissues: Large postoperative posterior paraspinal fluid collection measuring approximately 9.0 x 5.8 x 21 cm, sterility indeterminate on noncontrast imaging. Other: Small beexz-skzbnsi-[id number]-left pleural effusions with associated atelectasis. Interlobular septal thickening, most prominent in the upper lung zones. IMPRESSION: Postoperative changes of spinal fixation and posterior element intervention in the thoracolumbar spine. Large posterior paraspinal postoperative fluid collection , sterility of which is indeterminate on noncontrast imaging. Mild pulmonary edema and bhpmf-cjyowse-tffh-left pleural effusions with associated atelectasis. Dictated by: Spencer Earl M.D. on 09/22/2025 at 1:48 Approved by: Spencer Earl M.D. on 09/22/2025 at 1:57 ECG Data Attestation: I personally reviewed and interpreted this ECG as follows: Prior ECG tracings: not available for review Interpretation: Rhythm rate 82 UT interval 144 QRS [address] changes no T-wave inversions MDM Narrative Medical decision making narrative: MDM CC: Fever Complicating co-morbidities: Recent surgery at [facility] Data collected from: Patient and Medical records reviewed: [ ] Differential considered: Sepsis, UTI, pneumonia, viral, epidural abscess Exam documented above, pertinent findings include: Alert well-appearing 61-year-old male right leg is weaker than the left incision site on back appears to be healing Lab Test results independently reviewed as above. Pertinent findings: CBC WBC is 10.6 hemoglobin 9 point CMP sodium 130 potassium 4.6 chloride 96 carbon dioxide 26 BUN 17 creatinine 1.1 glucose is 173 Lactate 2.5-->0.8 Bilirubin liver enzymes within normal limits Troponin is negative CRP elevated 16.5, ESR elevated 67 Viral panel negative Urinalysis positive for nitrates and leukocyte Blood culture pending Independently reviewed EKG as above Sinus rhythm no ischemia Imaging studies independently reviewed: Chest x-ray no acute cardiopulmonary process CT thoracic spine does show a large posterior paraspinal fluid collection which measures 9 by 5.[address] lumbar spine also shows large postoperative paraspinal fluid collection same size Consultations: 2310 Dr. Monroy surgery at [facility] is familiar with the patient he did the surgery recommends CT without contrast and a postvoid residual. Okay to be discharged home with p.o. antibiotics Surgeon updated on CT results accepts patient although I did not Re talk to the surgeon, this was message through the transfer center because surgeon was in OR Treatments: Rocephin 2 g, Toradol, sepsis fluids, Dilaudid Re-evaluations: Patient initially feeling better after Toradol vitals remained stable Discussion: Patient is 69-year-old male history of recent back surgery where he had full removal of prior rods complicated postoperative course presenting today with fever of 103. Concern is for sepsis underlying infection. Urinalysis positive for nitrates leukocytes. Elevated ESR and CRP and an elevated lactate which quickly improves. CT of the spine does show a very large fluid collection can not rule out abscess. reports he has been having rigors and sweats ongoing for at least a week but never had a true documented fever until today. He is neurovascular intact in the right leg does seem to be a little bit weaker. Patient is accepted at [facility] awaiting transfer and bed availability Critical Care Time Critical Care Time Critical Care Time: Yes Total Critical Care Time: 31 Attestation: The high probability of a clinically significant, sudden or life threatening deterioration of the neurovascular, cardiovascular system(s) required my full and direct attention, intervention and personal management. The aggregate critical care time was 31 minutes. This time is in addition to time spent performing reported procedures but includes the following: [x] Data Review and interpretation [x] Patient assessment and monitoring of vital signs [x] Documentation [x] Medication orders and management Discharge Plan Departure Patient Disposition: General Acute Hospital Clinical Impression: Sepsis, Acute UTI Prescriptions: No Action lamotrigine 200 mg tablet 200 mg PO BID rosuvastatin 5 mg tablet 5 mg PO DAILY Qty: 90 3RF atenolol 25 mg tablet 25 mg PO DAILY Qty: 90 3RF lisinopril 20 mg tablet 20 mg PO BID Qty: 180 3RF insulin aspart U-100 [Novolog PenFill U-100 Insulin] 100 unit/mL cartridge See Rx Instructions .ROUTE .COMPLEX Qty: 20 3RF Rx Instructions: insulin pump (DME) Accu-Chek Guide test strips Strip See Rx Instructions .ROUTE 5XD Qty: 10 Rx Instructions: As directed pantoprazole 20 mg tablet,delayed release (DR/EC) 20 mg PO BID sulfamethoxazole-trimethoprim [Bactrim DS] 800-160 mg tablet 1 tab PO BID Rx Instructions: for 10 days. Last day 10/04/25 acetaminophen [Tylenol Extra Strength] 500 mg tablet 1,000 mg PO TID PRN polyethylene glycol 3350 [Miralax] 17 gram/dose powder 17 g PO DAILY tadalafil [Cialis] 5 mg tablet 5 mg PO DAILY PRN ibuprofen 200 mg tablet 400 mg PO Q6H celecoxib 200 mg capsule 200 mg PO BID Qty: 60 5RF hydromorphone 2 mg tablet 2 mg PO Q4H PRN (Reason: pain) Referrals: Marcio Rojo MD [Primary Care Provider, Internal Medicine]
[2025-09-21 19:28] LABS: Procalcitonin 1.06 ng/mL (<0.5)
--- NOTE | 2025-09-21 19:30 | EKG_ITS ---
[facility] [address] [place] [id number] Test Date: 2025-09-21 Pat Name: Rubén Nix Department: [facility] Room: Gender: Male Sand Miller: VIOLA : 1955 Requested By: Order Number: [id number] Reading MD: Tyson Espana Measurements Intervals Crane Rate: 82 P: 59 KS: 144 QRS: 5 QRSD: 82 T: 29 QT: 402 QTc: 469 Interpretive Statements Normal sinus rhythm Electronically Signed On 09-23-2025 13:30:18 PST by Tyson Espana
[2025-09-21] MEDS: SODIUM CHLORIDE 0.9% 2,721.54 ML 1814.36 ML IV (20:13)
[2025-09-21 20:15] LABS: Influenza A - CEPHEID Flu A NEGATIVE (NEGATIVE); Influenza B - CEPHEID Flu B NEGATIVE (NEGATIVE)
[2025-09-21 20:26] LABS: Reflexed Lactate in 2 Hours Y
[2025-09-21 20:32] LABS: COVID-19 CEPHEID 4-PLEX PCR Negative (Negative)
--- NOTE | 2025-09-21 20:39 | PC.NURSE ---
Pt received 1 L NS bolus from EMS, in addition to 1,721.54 mL given by this RN in separate administrations (see MAR) per sepsis protocol for a total of 2,721.54 mLs.
[2025-09-21 21:06] LABS: Lactate 2HR (Lactic Acid Rflx) 0.8 mmol/L (0.7-2.1)
[2025-09-21 21:30] LABS: Appearance Urine UA SL CLOUDY; Bilirubin Urine UA 1+ (NEGATIVE); Color Urine UA YELLOW; Glucose Urine UA NEGATIVE (Negative); Ketones Urine UA TRACE (NEGATIVE); Leukocyte Esterase Urine UA 3+ (NEGATIVE); Nitrite Urine UA POSITIVE (Negative); Occult Blood Urine UA 2+ (Negative); Protein Urine UA 2+ (Negative); Specific Gravity Urine UA 1.015 (1.000-1.035); Urobilinogen Urine UA 1.0 E.U./dL (0.2); pH Urine UA 5.5 (4.5-8.0)
[2025-09-21 21:37] LABS: Culture Indicated Urine Specimen Cultured; Urine Comments WBC CLUMPS PRESENT
[2025-09-21 21:40] LABS: Ictotest Urine Negative (Negative)
--- NOTE | 2025-09-21 23:29 | DI.CT.S_ITS ---
PROCEDURE: CT LUMBAR SPINE WO/W CON INDICATIONS: post op fever TECHNIQUE: After the administration of intravenous Isovue contrast, 3 mm thick sections acquired through the levels of interest. Sagittal and coronal reformats were then constructed. For radiation dose reduction, the following was used: automated exposure control. COMPARISON: None. FINDINGS: Image quality: Excellent. Bones: Status post spine instrumentation and posterior spinal fixation of the T9 through sacral levels with posterior element intervention from T12-L2, and intervertebral disc spacers in the lumbar spine. Multilevel degenerative changes of the lumbar spine without residual high-grade bony spinal canal or foraminal stenosis. Small lucencies are seen Soft tissues: Large postoperative posterior paraspinal fluid collection measuring approximately 9.0 x 5.8 x 21 cm, sterility indeterminate on noncontrast imaging. Partially visualized small bilateral pleural effusions. IMPRESSION: Status post posterior thoracolumbar intervention and posterior fusion. Large postoperative posterior paraspinal fluid collection measuring approximately 9.0 x 5.8 x 21 cm, sterility indeterminate on noncontrast imaging. Partially visualized small bilateral pleural effusions. Dictated by: Spencer Earl M.D. on 09/22/2025 at 2:00 Approved by: Spencer Earl M.D. on 09/22/2025 at 2:09
--- NOTE | 2025-09-21 23:29 | DI.CT.S_ITS ---
PROCEDURE: CT THORACIC SPINE WO CON INDICATIONS: post op fever TECHNIQUE: A3 mm thick sections acquired through the levels of interest. Sagittal and coronal reformats were then constructed. For radiation dose reduction, the following was used: automated exposure control. COMPARISON: None. FINDINGS: Image quality: Excellent. Bones: Degenerative changes of the visualized cervical spine. Status post posterior spinal fixation of the T9 through sacral levels with posterior element intervention from T12-L2. Multilevel degenerative changes of the thoracic spine with moderate bony spinal canal narrowing at T10-T11 as well as severe bony foraminal stenosis bilaterally at T10-T11 and on the left at T9-T10. Soft tissues: Large postoperative posterior paraspinal fluid collection measuring approximately 9.0 x 5.8 x 21 cm, sterility indeterminate on noncontrast imaging. Other: Small fhfpo-[id number]-aplf-left pleural effusions with associated atelectasis. Interlobular septal thickening, most prominent in the upper lung zones. IMPRESSION: Postoperative changes of spinal fixation and posterior element intervention in the thoracolumbar spine. Large posterior paraspinal postoperative fluid collection , sterility of which is indeterminate on noncontrast imaging. Mild pulmonary edema and zpxco-zlhtniz-kjxu-left pleural effusions with associated atelectasis. Dictated by: Spencer Earl M.D. on 09/22/2025 at 1:48 Approved by: Spencer Earl M.D. on 09/22/2025 at 1:57
[2025-09-22] VITALS (32 sets, daily range): BP systolic 125–179; BP diastolic 58–84; PULSE 76–93; RESP 12–21; TEMP 37.5–37.9; O2SAT 93–98
--- NOTE | 2025-09-22 05:20 | PC.NURSE ---
Patient will be returning to Surgeon at [facility]. His is able to manage pain with IV medications. Urinates independently with urinal approx 150 - 250 ml each time. No further changes noted at this time.
[2025-09-22] MEDS: SODIUM CHLORIDE 0.9% 1,000 ML 100 ML IV (06:58)
[2025-09-22 09:46] LABS: Acinetobacter calcoa-baumannii Not Detected (Not Detect); Bacteroides fragilis Not Detected (Not Detect); CTX-M Resistance Detected (Not Detect); Candida auris Not Detected (Not Detect); Candida glabrata Not Detected (Not Detect); Cryptococcus neoformans/gatti Not Detected (Not Detect); Enterobacterales Detected (Not Detect); Enterococcus faecalis Not Detected (Not Detect); Enterococcus faecium Not Detected (Not Detect); IMP Resistance Not Detected (Not Detect); KPC Resistance Not Detected (Not Detect); Klebsiella aerogenes Not Detected (Not Detect); NDM Resistance Not Detected (Not Detect); OXA-48-like Resistance Not Detected (Not Detect); Proteus species Not Detected (Not Detect); Serratia marcescens Not Detected (Not Detect); Staphylococcus epidermidis Not Detected (Not Detect); Staphylococcus lugdunensis Not Detected (Not Detect); Staphylococcus species Not Detected (Not Detect); Stenotrophomonas maltophilia Not Detected (Not Detect); Streptococcus agalactiae (Gr B Not Detected (Not Detect); Streptococcus pneumonia Not Detected (Not Detect); Streptococcus pyogenes (Gr A) Not Detected (Not Detect); Streptococcus species Not Detected (Not Detect); VIM Resistance Not Detected (Not Detect); mcr-1 Resistance Not Detected (Not Detect)
[2025-09-22] MEDS: ACETAMINOPHEN IV 1,000 MG/100 ML VIAL 400 MG IV (12:21)
[2025-09-22] MEDS: ONDANSETRON 4 MG/2 ML INJ IV (14:34)
--- NOTE | 2025-09-22 15:06 | PC.NURSE ---
Report called to ZELALEM Doherty from [facility], [address] @ [phone].
== END 2025-09-22 14:15 | disposition short-term general hospital (02) ==
PROVIDERS: Emergency Provider Emergency Medicine; PCP Internal Medicine
DX: A41.9 Sepsis, unspecified organism (principal); N39.0 Urinary tract infection, site not specified; M54.9 Dorsalgia, unspecified; Z98.890 Other specified postprocedural states
CPT/HCPCS: 36415; 51798; 71045; 72130; 72133; 80053; 81001; 82009; 82550; 82805; 82962; 83605; 84145; 84484; 85025; 85651; 86140; 87040; 87077; 87086; 87154; 87186; 87637; 93005; 96365; 96366; 96367; 96375; 96376; 99285; 99291; J0131; J0696; J1171; J1885; J2405; J3375; J7030; J7050

== ENCOUNTER 2025-10-02 17:22 | Inpatient (IN) | payer OTHER, MEDICARE, SELFPAY ==
[2024-10-06 11:11] VITALS: BMI 28.3
[2025-10-02] VITALS (15 sets, daily range): BP systolic 103–150; BP diastolic 59–82; PULSE 69–81; RESP 16–20; TEMP 36.4; O2SAT 91–99; BMI 26.4
--- NOTE | 2025-10-02 17:43 | ED.GENADULT ---
HPI - General Adult <Amanda Song MD - Last Filed: 10/02/25 17:44> General Chief complaint: Weakness Stated complaint: PC ref, Returning, UTI, postural hypotension Time Seen by Provider: 10/02/25 17:43 History of Present Illness HPI narrative: Complicated recurrent urinary tract infection, over the last 48 hours has been getting progressively worse with orthostatic hypotension Related Data Home Medications ?Medication ?Instructions ?Recorded ?Confirmed lamotrigine 200 mg tablet 200 mg PO BID 09/03/23 09/25/25 blood sugar diagnostic (Accu-Chek #10 ea 09/15/23 09/25/25 Guide test strips) pantoprazole 20 mg tablet,delayed 20 mg PO BID 04/26/24 09/25/25 release acetaminophen 500 mg tablet 1,000 mg PO TID PRN 09/25/25 09/25/25 (Tylenol Extra Strength) hydromorphone 2 mg tablet 2 mg PO Q4H PRN pain 09/25/25 09/25/25 ibuprofen 200 mg tablet 400 mg PO Q6H 09/25/25 09/25/25 polyethylene glycol 3350 17 17 g PO DAILY 09/25/25 09/25/25 gram/dose oral powder (Miralax) sulfamethoxazole 800 1 tab PO BID 09/25/25 09/25/25 mg-trimethoprim 160 mg tablet (Bactrim DS) tadalafil 5 mg tablet (Cialis) 5 mg PO DAILY PRN 09/25/25 09/25/25 Previous Rx's ?Medication ?Instructions ?Recorded rosuvastatin 5 mg tablet 5 mg PO DAILY #90 tabs 01/12/25 atenolol 25 mg tablet 25 mg PO DAILY #90 tabs 01/17/25 lisinopril 20 mg tablet 20 mg PO BID #180 tabs 03/08/25 celecoxib 200 mg capsule 200 mg PO BID #60 caps 05/02/25 Held on 09/25/25. Instructions: holding while using other NSAIDs insulin aspart U-100 100 unit/mL See Rx Instructions .Route 08/15/25 subcutaneous cartridge (Novolog .COMPLEX #20 mL PenFill U-100 Insulin aspart) Allergies Allergy/AdvReac Type Severity Reaction Status Date / Time gabapentin AdvReac Intermediate agitation Verified 10/02/25 17:43 pregabalin (From Lyrica) AdvReac Intermediate agitation Verified 10/02/25 17:43 codeine AdvReac Mild Nausea Verified 10/02/25 17:43 tramadol AdvReac Mild lower Verified 10/02/25 17:43 seizure threshold muscle relaxers AdvReac post Uncoded 10/02/25 17:43 surgical delirium <Wayne Figueroa, - Last Filed: 10/03/25 03:53> History of Present Illness HPI narrative: Patient is a 70M with past medical history of insulin-dependent diabetes, hypertension, hyperlipidemia, spinal surgery from T8-S1 done at [facility], this was done on 08/31/2025, comes into the ED from home for evaluation of multiple complaints. Patient states that he had a complicated postop recovery requiring ICU admission for infection, was seen here on 09/21/2025 for this. According to patient and at bedside patient has been improving in an outpatient setting after discharge from there but since Thursday09/30/2025 patient has been ?regressing states that he has been having episodes of orthostatic hypotension increasing in nature, and states that now if he is sitting he is having these symptoms. He states that he did contact his primary care doctor (Dr. Rojo) and has an appointment with him on but states that they were instructed come into the ED due to persistent/worsening symptoms. Patient states that he is not having any increased/worsening pain, he is not having any focal neurological deficits, however he states that every time he sits up or stands up regardless of how long/slow he does it his blood pressure goes down. Review of Systems <Wayne Figueroa DO - Last Filed: 10/03/25 03:53> Review of Systems Narrative: General: Denies fever, chills, weight loss HEENT: Denies headache, eye drainage, eye irritation, head trauma, sore throat, voice change Cardiovascular: Positive for orthostatic hypotension Respiratory: Denies any shortness of breath, cough, wheeze, stridor GI/: Denies any abdominal pain, nausea, vomiting, diarrhea, bright red blood per rectum, melanotic stools, urinary frequency, urinary retention, dysuria, hematuria MSK: Denies any joint pain, muscle pains, swelling Skin: Denies any rashes, lesions, discoloration Neuro: Denies any headache, lightheadedness, dizziness, fainting, weakness Psych: Denies SI/HI Patient History <Amanda Song MD - Last Filed: 10/02/25 17:44> Medical History (Updated 10/03/25 @ 00:54 by Wayne Figueroa DO) Chronic, continuous use of opioids History of colonic polyps Urinary frequency Nocturia Obstructive sleep apnea Chronic low back pain Overweight Type 1 diabetes mellitus with hyperlipidemia GERD without esophagitis Erectile dysfunction 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 Mixed hyperlipidemia Essential hypertension Surgical History Hx laparoscopic cholecystectomy 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: , 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 alcohol intake: never Exam <Amanda Song MD - Last Filed: 10/02/25 17:44> Initial Vital Signs Initial Vital Signs: Vital Signs Temperature 97.6 F 10/02/25 17:43 Pulse Rate 81 10/02/25 17:43 Respiratory Rate 17 10/02/25 17:43 Blood Pressure 103/59 L 10/02/25 17:43 Pulse Oximetry 97 10/02/25 17:43 Oxygen Delivery Method Room Air 10/02/25 17:43 <Wayne Figueroa DO - Last Filed: 10/03/25 03:53> Narrative Exam Narrative: General: Cooperative, well-developed, not in acute distress HEENT: Normocephalic, atraumatic, PERRLA, normal sclera, eyelids normal Neck: Active full range of motion, atraumatic Chest: Normal to inspection, negative crepitus, no overlying erythema ecchymosis Respiratory: Normal respiratory effort, not in acute respiratory distress, clear to auscultation bilaterally negative cough, wheeze, tachypnea, rhonchi, rales Cardiology: Regular rate rhythm negative gallop, murmur, rubs GI/: No tenderness to palpation, soft, non rigid, normal to inspection, exam deferred MSK: Full active range of motion in all 4 extremities, atraumatic, no tenderness to palpation of any bony prominences Skin: No rashes or lesions noted Neuro: Alert awake oriented x3, moves all 4 extremities spontaneously, cranial nerves intact, able to answer all questions appropriately follows commands appropriately Psych: Cooperative, negative suicidal or homicidal ideations Initial Vital Signs Initial Vital Signs: Vital Signs Temperature 97.6 F 10/02/25 17:43 Pulse Rate 81 10/02/25 17:43 Respiratory Rate 17 10/02/25 17:43 Blood Pressure 103/59 L 10/02/25 17:43 Pulse Oximetry 97 10/02/25 17:43 Oxygen Delivery Method Room Air 10/02/25 17:43 Course <Amanda Song MD - Last Filed: 10/02/25 17:44> Orders Ordered: ED Orders 10/02/25 21:00 Urinalysis and Microscopic Stat Urine Culture Stat Acetaminophen (Acetaminophen 325 Mg Tablet) 650 mg PO Q6H PRN PRN Reason: Fever/Mild Pain (1-3) Albuterol (Albuterol 2.5 Mg/3 Ml Neb (Adult)) 2.5 mg INH [id number] PRN PRN Reason: Dyspnea Atenolol (Atenolol 25 Mg Tablet) 25 mg PO DAILY ELAINA Benzonatate (Benzonatate 100 Mg Capsule) 100 mg PO TID PRN PRN Reason: Cough Bisacodyl (Bisacodyl 10 Mg Supp) 10 mg IN DAILY PRN PRN Reason: Constipation Calcium Carbonate (Calcium Carbonate 500 Mg Tab) 1,000 mg PO Q4HR PRN PRN Reason: Dyspepsia Hydralazine HCl (Hydralazine 20 Mg/Ml Vial) 10 mg IV Q6HR PRN PRN Reason: SBP>= 160 or DBP >=110 Hydromorphone HCl (Hydromorphone 2 Mg Tablet) 2 mg PO Q4H PRN PRN Reason: Pain, Severe (7-10) Hydromorphone HCl (Hydromorphone Hcl 0.5 Mg/0.5 Ml Syringe) 0.5 mg IV Q2H PRN PRN Reason: Pain, Severe (7-10) Sodium Chloride (Normal Saline 0.9%) 1,000 mls @ 100 mls/hr IV CONT ELAINA Piperacillin Sod/Tazobactam (Sod 3.375 gm/ Sodium Chloride) 100 mls @ 25 mls/hr IV Q8H ELAINA Lamotrigine (Lamotrigine 100 Mg Tablet) 200 mg PO BID ELAINA Lisinopril (Lisinopril 20 Mg Tablet) 20 mg PO BID ELAINA Melatonin (Melatonin 3 Mg Tablet) 9 mg PO BEDTIME PRN PRN Reason: insomnia Naloxone HCl (Naloxone 0.4 Mg/Ml Vial) 0.2 mg IV Q2MIN PRN PRN Reason: Opiate Reversal Non-Formulary Medication (Insulin Aspart U-100 [Novolog Penfill U-100 Insulin]) 0 unit .ROUTE .COMPLEX ELAINA Non-Formulary Medication (Rosuvastatin) 5 mg PO DAILY ELAINA Ondansetron HCl (Ondansetron 4 Mg/2 Ml Inj) 4 mg IV Q8HR PRN PRN Reason: Nausea And Vomiting Oxycodone HCl (Oxycodone Ir 5 Mg Tablet) 5 mg PO Q3H PRN PRN Reason: Pain, Moderate (4-6) Pantoprazole Sodium (Pantoprazole Dr 20 Mg Tablet) 20 mg PO BID [facility] Polyethylene Glycol (Polyethylene Glycol 3350 17 Gm Powd.Pack) 17 gm PO DAILY ELAINA Discontinued Medications Hydromorphone HCl (Hydromorphone 1 Mg/Ml Syringe) 1 mg IV NOW ONE Stop: 10/02/25 23:44 Last Admin: 10/02/25 23:56 Dose: 1 mg Documented By: MADDIE Sodium Chloride (Normal Saline 0.9%) 1,000 mls @ 1,000 mls/hr IV BOLUS ONE Stop: 10/02/25 19:02 Last Infusion: 10/02/25 20:51 Dose: Infused Documented By: Admin: 10/02/25 19:53 Dose: 1,000 mls/hr Documented By: LAKEISHA Piperacillin Sod/Tazobactam (Sod 4.5 gm/ Sodium Chloride) 100 mls @ 200 mls/hr IV NOW ONE Stop: 10/02/25 18:04 Last Infusion: 10/02/25 20:51 Dose: Infused Documented By: Admin: 10/02/25 19:52 Dose: 200 mls/hr Documented By: LAKEISHA Ondansetron HCl (Ondansetron 4 Mg/2 Ml Inj) 4 mg IV NOW ONE Stop: 10/03/25 00:04 Last Admin: 10/03/25 00:06 Dose: 4 mg Documented By: MADDIE Vital Signs Vital signs: Vital Signs - 8 hr 10/02/25 21:00 10/02/25 21:30 10/02/25 21:43 Pulse Rate 80 79 76 Respiratory Rate Blood Pressure Pulse Oximetry 97 95 93 Oxygen Delivery Method 10/02/25 21:43 10/02/25 21:45 10/02/25 21:45 Pulse Rate 75 Respiratory Rate 16 Blood Pressure 136/71 129/66 Pulse Oximetry 97 Oxygen Delivery Method Room Air 10/02/25 22:00 10/02/25 22:00 10/02/25 22:15 Pulse Rate 75 Respiratory Rate Blood Pressure 131/74 128/71 Pulse Oximetry 92 Oxygen Delivery Method 10/02/25 22:15 10/02/25 22:30 10/02/25 22:30 Pulse Rate 75 76 Respiratory Rate Blood Pressure 128/75 Pulse Oximetry 94 98 Oxygen Delivery Method 10/02/25 22:45 10/02/25 22:45 10/02/25 23:00 Pulse Rate 75 74 Respiratory Rate Blood Pressure 150/82 H Pulse Oximetry 99 96 Oxygen Delivery Method 10/02/25 23:00 10/02/25 23:15 10/02/25 23:15 Pulse Rate 73 Respiratory Rate Blood Pressure 138/79 147/73 H Pulse Oximetry 95 Oxygen Delivery Method 10/02/25 23:30 10/02/25 23:30 10/02/25 23:45 Pulse Rate 69 Respiratory Rate Blood Pressure 139/73 138/82 Pulse Oximetry 93 Oxygen Delivery Method Room Air 10/02/25 23:45 10/03/25 00:00 10/03/25 00:00 Pulse Rate 78 78 Respiratory Rate 20 14 Blood Pressure 141/76 H Pulse Oximetry 97 96 Oxygen Delivery Method Room Air Room Air 10/03/25 00:15 10/03/25 00:15 10/03/25 00:20 Pulse Rate 79 Respiratory Rate Blood Pressure 148/82 H 148/73 H Pulse Oximetry 97 Oxygen Delivery Method Room Air 10/03/25 00:20 10/03/25 00:23 10/03/25 00:23 Pulse Rate 76 92 H Respiratory Rate Blood Pressure 125/72 Pulse Oximetry 96 97 Oxygen Delivery Method Room Air Room Air 10/03/25 00:24 10/03/25 00:24 10/03/25 00:30 Pulse Rate 91 H 93 H Respiratory Rate 16 Blood Pressure 117/72 148/73 H Pulse Oximetry 97 Oxygen Delivery Method Room Air 10/03/25 00:30 10/03/25 00:30 10/03/25 00:31 Pulse Rate 83 91 H Respiratory Rate 22 Blood Pressure 130/71 125/72 Pulse Oximetry 98 Oxygen Delivery Method Room Air 10/03/25 00:32 10/03/25 00:45 10/03/25 00:45 Pulse Rate 92 H 78 Respiratory Rate 22 Blood Pressure 117/72 135/77 Pulse Oximetry 97 Oxygen Delivery Method Room Air 10/03/25 01:00 10/03/25 01:00 Pulse Rate 72 Respiratory Rate Blood Pressure 127/69 Pulse Oximetry 96 Oxygen Delivery Method Room Air <Wayne Figueroa, DO - Last Filed: 10/03/25 03:53> Orders Ordered: ED Orders 10/02/25 21:00 Urinalysis and Microscopic Stat Urine Culture Stat Acetaminophen (Acetaminophen 325 Mg Tablet) 650 mg PO Q6H PRN PRN Reason: Fever/Mild Pain (1-3) Albuterol (Albuterol 2.5 Mg/3 Ml Neb (Adult)) 2.5 mg INH [id number] PRN PRN Reason: Dyspnea Atenolol (Atenolol 25 Mg Tablet) 25 mg PO DAILY ELAINA Benzonatate (Benzonatate 100 Mg Capsule) 100 mg PO TID PRN PRN Reason: Cough Bisacodyl (Bisacodyl 10 Mg Supp) 10 mg IN DAILY PRN PRN Reason: Constipation Calcium Carbonate (Calcium Carbonate 500 Mg Tab) 1,000 mg PO Q4HR PRN PRN Reason: Dyspepsia Hydralazine HCl (Hydralazine 20 Mg/Ml Vial) 10 mg IV Q6HR PRN PRN Reason: SBP>= 160 or DBP >=110 Hydromorphone HCl (Hydromorphone 2 Mg Tablet) 2 mg PO Q4H PRN PRN Reason: Pain, Severe (7-10) Hydromorphone HCl (Hydromorphone Hcl 0.5 Mg/0.5 Ml Syringe) 0.5 mg IV Q2H PRN PRN Reason: Pain, Severe (7-10) Sodium Chloride (Normal Saline 0.9%) 1,000 mls @ 100 mls/hr IV CONT ELAINA Piperacillin Sod/Tazobactam (Sod 3.375 gm/ Sodium Chloride) 100 mls @ 25 mls/hr IV Q8H ELAINA Lamotrigine (Lamotrigine 100 Mg Tablet) 200 mg PO BID ELAINA Lisinopril (Lisinopril 20 Mg Tablet) 20 mg PO BID [facility] Melatonin (Melatonin 3 Mg Tablet) 9 mg PO BEDTIME PRN PRN Reason: insomnia Naloxone HCl (Naloxone 0.4 Mg/Ml Vial) 0.2 mg IV Q2MIN PRN PRN Reason: Opiate Reversal Non-Formulary Medication (Insulin Aspart U-100 [Novolog Penfill U-100 Insulin]) 0 unit .ROUTE .COMPLEX [facility] Non-Formulary Medication (Rosuvastatin) 5 mg PO DAILY [facility] Ondansetron HCl (Ondansetron 4 Mg/2 Ml Inj) 4 mg IV Q8HR PRN PRN Reason: Nausea And Vomiting Oxycodone HCl (Oxycodone Ir 5 Mg Tablet) 5 mg PO Q3H PRN PRN Reason: Pain, Moderate (4-6) Pantoprazole Sodium (Pantoprazole Dr 20 Mg Tablet) 20 mg PO BID [facility] Polyethylene Glycol (Polyethylene Glycol 3350 17 Gm Powd.Pack) 17 gm PO DAILY [facility] Discontinued Medications Hydromorphone HCl (Hydromorphone 1 Mg/Ml Syringe) 1 mg IV NOW ONE Stop: 10/02/25 23:44 Last Admin: 10/02/25 23:56 Dose: 1 mg Documented By: MADDIE Sodium Chloride (Normal Saline 0.9%) 1,000 mls @ 1,000 mls/hr IV BOLUS ONE Stop: 10/02/25 19:02 Last Infusion: 10/02/25 20:51 Dose: Infused Documented By: Admin: 10/02/25 19:53 Dose: 1,000 mls/hr Documented By: LAKEISHA Piperacillin Sod/Tazobactam (Sod 4.5 gm/ Sodium Chloride) 100 mls @ 200 mls/hr IV NOW ONE Stop: 10/02/25 18:04 Last Infusion: 10/02/25 20:51 Dose: Infused Documented By: Admin: 10/02/25 19:52 Dose: 200 mls/hr Documented By: LAKEISHA Ondansetron HCl (Ondansetron 4 Mg/2 Ml Inj) 4 mg IV NOW ONE Stop: 10/03/25 00:04 Last Admin: 10/03/25 00:06 Dose: 4 mg Documented By: MADDIE Vital Signs Vital signs: Vital Signs - 8 hr 10/02/25 21:00 10/02/25 21:30 10/02/25 21:43 Pulse Rate 80 79 76 Respiratory Rate Blood Pressure Pulse Oximetry 97 95 93 Oxygen Delivery Method 10/02/25 21:43 10/02/25 21:45 10/02/25 21:45 Pulse Rate 75 Respiratory Rate 16 Blood Pressure 136/71 129/66 Pulse Oximetry 97 Oxygen Delivery Method Room Air 10/02/25 22:00 10/02/25 22:00 10/02/25 22:15 Pulse Rate 75 Respiratory Rate Blood Pressure 131/74 128/71 Pulse Oximetry 92 Oxygen Delivery Method 10/02/25 22:15 10/02/25 22:30 10/02/25 22:30 Pulse Rate 75 76 Respiratory Rate Blood Pressure 128/75 Pulse Oximetry 94 98 Oxygen Delivery Method 10/02/25 22:45 10/02/25 22:45 10/02/25 23:00 Pulse Rate 75 74 Respiratory Rate Blood Pressure 150/82 H Pulse Oximetry 99 96 Oxygen Delivery Method 10/02/25 23:00 10/02/25 23:15 10/02/25 23:15 Pulse Rate 73 Respiratory Rate Blood Pressure 138/79 147/73 H Pulse Oximetry 95 Oxygen Delivery Method 10/02/25 23:30 10/02/25 23:30 10/02/25 23:45 Pulse Rate 69 Respiratory Rate Blood Pressure 139/73 138/82 Pulse Oximetry 93 Oxygen Delivery Method Room Air 10/02/25 23:45 10/03/25 00:00 10/03/25 00:00 Pulse Rate 78 78 Respiratory Rate 20 14 Blood Pressure 141/76 H Pulse Oximetry 97 96 Oxygen Delivery Method Room Air Room Air 10/03/25 00:15 10/03/25 00:15 10/03/25 00:20 Pulse Rate 79 Respiratory Rate Blood Pressure 148/82 H 148/73 H Pulse Oximetry 97 Oxygen Delivery Method Room Air 10/03/25 00:20 10/03/25 00:23 10/03/25 00:23 Pulse Rate 76 92 H Respiratory Rate Blood Pressure 125/72 Pulse Oximetry 96 97 Oxygen Delivery Method Room Air Room Air 10/03/25 00:24 10/03/25 00:24 10/03/25 00:30 Pulse Rate 91 H 93 H Respiratory Rate 16 Blood Pressure 117/72 148/73 H Pulse Oximetry 97 Oxygen Delivery Method Room Air 10/03/25 00:30 10/03/25 00:30 10/03/25 00:31 Pulse Rate 83 91 H Respiratory Rate 22 Blood Pressure 130/71 125/72 Pulse Oximetry 98 Oxygen Delivery Method Room Air 10/03/25 00:32 10/03/25 00:45 10/03/25 00:45 Pulse Rate 92 H 78 Respiratory Rate 22 Blood Pressure 117/72 135/77 Pulse Oximetry 97 Oxygen Delivery Method Room Air 10/03/25 01:00 10/03/25 01:00 Pulse Rate 72 Respiratory Rate Blood Pressure 127/69 Pulse Oximetry 96 Oxygen Delivery Method Room Air Medical Decision Making <Amanda Song MD - Last Filed: 10/02/25 17:44> Lab Data 10/02/25 17:56 10/02/25 17:56 Labs: Lab Results 10/02/25 10/02/25 10/02/25 Range/Units 17:56 20:58 21:00 WBC 6.8 (4.5-11.0) X10^3/uL RBC 3.62 L (4.5-5.9) X10^6/uL Hgb 10.4 L (13.5-17.5) g/dL Hct 30.7 L (41-53) % MCV 84.8 (80-100) fL MCH 28.8 (26-34) PG MCHC 33.9 (30-36) % RDW 15.3 H (11.6-14.8) % Plt Count 474 H (150-400) X10^3/uL Neut % (Auto) 64.4 (50-75) % Lymph % (Auto) 26.6 (25-40) % [place] % (Auto) 6.8 (3-14) % Eos % (Auto) 1.6 L (2-4) % Baso % (Auto) 0.6 (0-2) % Neut # (Auto) 4400 (7487-9129) /uL Lymph # (Auto) 1800 (0997-7785) /uL [place] # (Auto) 500 (0-900) /uL Eos # (Auto) 100 (0-450) /uL Baso # (Auto) 0 (0-100) /uL ESR 39 H (0-15) MM/HR Sodium 132 L (137-145) mmol/L Potassium 4.5 (3.4-5.1) mmol/L Chloride 101 (98-107) mmol/L Carbon Dioxide 25 (22-32) mmol/L BUN 13 (9-20) mg/dL Creatinine 1.14 (0.66-1.25) mg/dL Estimated GFR > 60 (>60) mL/min BUN/Creatinine Ratio 11.4 (6-22) Glucose 229 H (70-99) mg/dL Lactate 2.1 1.1 (0.7-2.1) mmol/L Calcium 8.5 (8.4-10.2) mg/dL Magnesium 1.9 (1.6-2.3) mg/dL Total Bilirubin 0.4 (0.2-1.3) mg/dL AST 28 (17-59) IU/L ALT 16 (<50) IU/L Alkaline Phosphatase 157 H (38-126) U/L C-Reactive Protein 0.7 (<1.0) mg/dL Total Protein 6.0 L (6.3-8.2) g/dL Albumin 3.2 L (3.5-5.0) g/dL Globulin 2.8 (1.7-4.1) g/dL Albumin/Globulin Ratio 1.1 (1.0-2.8) Lipase 18 L (23-300) U/L Procalcitonin 0.073 (<0.5) ng/mL Urine Color Yellow Urine Appearance Clear Urine pH 6.5 (4.5-8.0) Ur Specific [place] 1.015 (1.000-1.035) Urine Protein Negative (Negative) Urine Glucose (UA) Negative (Negative) g/dL Urine Ketones Negative (NEGATIVE) Urine Occult Blood Negative (Negative) Urine Nitrate Negative (Negative) Urine Bilirubin Negative (NEGATIVE) Urine Urobilinogen 1.0 (0.2) E.U./dL Ur Leukocyte Esterase Negative (NEGATIVE) Urine RBC None seen (0-5/HPF) Urine WBC 5-10/hpf H (0-5/HPF) Ur Squamous Epith Cells None seen (0-5/HPF) Urine Bacteria None seen (None) Ur Culture Indicated? Specimen cultured Vol Urine Centrifuged 10ml (spun) Ketones 0.05 (<0.27) mmol/L <Wayne Figueroa DO - Last Filed: 10/03/25 03:53> Lab Data Labs: Lab Results 10/02/25 10/02/25 10/02/25 Range/Units 17:56 20:58 21:00 WBC 6.8 (4.5-11.0) X10^3/uL RBC 3.62 L (4.5-5.9) X10^6/uL Hgb 10.4 L (13.5-17.5) g/dL Hct 30.7 L (41-53) % MCV 84.8 (80-100) fL MCH 28.8 (26-34) PG MCHC 33.9 (30-36) % RDW 15.3 H (11.6-14.8) % Plt Count 474 H (150-400) X10^3/uL Neut % (Auto) 64.4 (50-75) % Lymph % (Auto) 26.6 (25-40) % [place] % (Auto) 6.8 (3-14) % Eos % (Auto) 1.6 L (2-4) % Baso % (Auto) 0.6 (0-2) % Neut # (Auto) 4400 (9053-3996) /uL Lymph # (Auto) 1800 (4691-7396) /uL [place] # (Auto) 500 (0-900) /uL Eos # (Auto) 100 (0-450) /uL Baso # (Auto) 0 (0-100) /uL ESR 39 H (0-15) MM/HR Sodium 132 L (137-145) mmol/L Potassium 4.5 (3.4-5.1) mmol/L Chloride 101 (98-107) mmol/L Carbon Dioxide 25 (22-32) mmol/L BUN 13 (9-20) mg/dL Creatinine 1.14 (0.66-1.25) mg/dL Estimated GFR > 60 (>60) mL/min BUN/Creatinine Ratio 11.4 (6-22) Glucose 229 H (70-99) mg/dL Lactate 2.1 1.1 (0.7-2.1) mmol/L Calcium 8.5 (8.4-10.2) mg/dL Magnesium 1.9 (1.6-2.3) mg/dL Total Bilirubin 0.4 (0.2-1.3) mg/dL AST 28 (17-59) IU/L ALT 16 (<50) IU/L Alkaline Phosphatase 157 H (38-126) U/L C-Reactive Protein 0.7 (<1.0) mg/dL Total Protein 6.0 L (6.3-8.2) g/dL Albumin 3.2 L (3.5-5.0) g/dL Globulin 2.8 (1.7-4.1) g/dL Albumin/Globulin Ratio 1.1 (1.0-2.8) Lipase 18 L (23-300) U/L Procalcitonin 0.073 (<0.5) ng/mL Urine Color Yellow Urine Appearance Clear Urine pH 6.5 (4.5-8.0) Ur Specific [place] 1.015 (1.000-1.035) Urine Protein Negative (Negative) Urine Glucose (UA) Negative (Negative) g/dL Urine Ketones Negative (NEGATIVE) Urine Occult Blood Negative (Negative) Urine Nitrate Negative (Negative) Urine Bilirubin Negative (NEGATIVE) Urine Urobilinogen 1.0 (0.2) E.U./dL Ur Leukocyte Esterase Negative (NEGATIVE) Urine RBC None seen (0-5/HPF) Urine WBC 5-10/hpf H (0-5/HPF) Ur Squamous Epith Cells None seen (0-5/HPF) Urine Bacteria None seen (None) Ur Culture Indicated? Specimen cultured Vol Urine Centrifuged 10ml (spun) Ketones 0.05 (<0.27) mmol/L MDM Narrative Medical decision making narrative: 2300: patient was signed out to me by Dr. Song, patient with a past medical history of insulin-dependent diabetes, hypertension, hyperlipidemia, spinal surgery from T8-S1 done at [facility], this was done on 08/31/2025, comes into the ED from home for evaluation of multiple complaints. Patient states that he had a complicated postop recovery requiring ICU admission for infection, was seen here on 09/21/2025 for this. According to patient and at bedside patient has been improving in an outpatient setting after discharge from there but since Thursday09/30/2025 patient has been ?regressing states that he has been having episodes of orthostatic hypotension increasing in nature, and states that now if he is sitting he is having these symptoms. He states that he did contact his primary care doctor (Dr. Rojo) and has an appointment with him on but states that they were instructed come into the ED due to persistent/worsening symptoms. Patient states that he is not having any increased/worsening pain, he is not having any focal neurological deficits, however he states that every time he sits up or stands up regardless of how long/slow he does it his blood pressure goes down. Here patient did have positive orthostatic hypotension despite fluid resuscitation, patient's workup did not show any signs of leukocytosis, ESR CRP does appear better than previous, urinalysis did show WBC consistent with acute UTI, according to patient, patient's CT lumbar spine shows limited images however there is a large posterior paravertebral fluid collection again seen with mild rim enhancement, there is also irregularity seen at T12-L1 surrounding the interbody spacer possibly representing osteomyelitis versus postsurgical changes, given patient's CT scan did reach out to his ortho spine surgery team. 0051: I had a discussion with ortho spine Dr. castelan, he states that there is no need for current emergent/urgent transfer, he states that there is low likelihood of osteomyelitis states that this is most likely postoperative changes but states that patient should be admitted to have continued IV antibiotics for his urine infection, he states that previously this is what they believed the cause of his infection/admission was previously. He states however if patient starts developing any neurological changes to reach out and discuss possible transfer but no current emergent or urgent interventions at this time. Discharge Plan Departure Patient Disposition: Home Clinical Impression: Orthostatic hypotension, Acute UTI, Abnormal CT scan, lumbar spine
--- NOTE | 2025-10-02 18:07 | DI.CT.S_ITS ---
PROCEDURE: CT THORACIC SPINE W CON INDICATIONS: Infection, abscess, hematoma, recent spinal surgery TECHNIQUE: After the administration of intravenous Isovue contrast, 3 mm thick sections acquired through the levels of interest. Sagittal and coronal reformats were then constructed. For radiation dose reduction, the following was used: automated exposure control. COMPARISON: [facility], CT, CT THORACIC SPINE WO/W CON, 09/21/2025, 23:30. FINDINGS: Image quality: Diagnostic Bones: Partially visualized thoracolumbar fusion hardware. Lumbar spine findings are separately dictated. [id number] diffuse thoracic degenerative changes. Partially seen lower cervical surgical changes also present. Soft tissues: Small right pleural effusions. Posterior lungs are unremarkable, partially visualized Coronary calcifications and aortic valve calcifications. IMPRESSION: Degenerative spine changes in the chest. Partially visualized thoracolumbar fusion hardware. Lumbar spine findings are separately reported. No definite findings for infection by CT in the mid to upper thoracic spine. If there is high concern for further derangement, consider MRI evaluation. Small right pleural effusion. Dictated by: Simba Shook M.D. on 10/02/2025 at 19:32 Approved by: Simba Shook M.D. on 10/02/2025 at 19:34
--- NOTE | 2025-10-02 18:07 | DI.CT.S_ITS ---
PROCEDURE: CT LUMBAR SPINE W CON INDICATIONS: Infection, abscess, hematoma, recent spinal surgery TECHNIQUE: After the administration of intravenous Isovue contrast, 3 mm thick sections acquired through the levels of interest. Sagittal and coronal reformats were then constructed. For radiation dose reduction, the following was used: automated exposure control. COMPARISON: [facility], CT, CT LUMBAR SPINE WO/W CON, 09/21/2025, 23:30. FINDINGS: Image quality: Limited for the clinical indication given CT modality and metallic artifact Bones: Thoracolumbar sacral posterior fusion construct with interbody spacers at multiple levels. Endplate irregularities are seen at T12-L1 surrounding the spacer. Diffuse osseous demineralization. No traumatic subluxation. No acute appearing fracture. Soft tissues: There is a large fluid collection in the posterior paravertebral soft tissues measuring up to 20 x 6 cm. There is mild rim enhancement. Epidural and intrathecal space poorly assessed on this study. IMPRESSION: Limited CT images for concern for spinal infection. Metallic artifact also present. Endplate irregularities seen at T12-L1 surrounding the interbody spacer. This could represent osteomyelitis versus postsurgical changes. Large posterior paravertebral fluid collection also again seen, with mild rim enhancement. Sterility is indeterminate on imaging. Consider MRI if possible to further evaluate Dictated by: Simba Shook M.D. on 10/02/2025 at 19:24 Approved by: Simba Shook M.D. on 10/02/2025 at 19:31
[2025-10-02 18:15] LABS: Add Manual Diff / Slide Review NO; Hematocrit 30.7 % (41-53); Hemoglobin 10.4 g/dL (13.5-17.5); Lymphocytes Absolute Auto 1800 /uL (1100-4500); Mean Corpuscular HGB Conc 33.9 % (30-36); Mean Corpuscular Hemoglobin 28.8 PG (26-34); Mean Corpuscular Volume 84.8 fL (80-100); Platelet Count 474 X10^3/uL (150-400)
[2025-10-02 18:18] LABS: Lactate (Lactic Acid) 2.1 mmol/L (0.7-2.1)
[2025-10-02 18:22] LABS: Alanine Aminotransferase 16 IU/L (<50); Albumin 3.2 g/dL (3.5-5.0); Albumin Globulin Ratio 1.1 (1.0-2.8); Alkaline Phosphatase 157 U/L (38-126); Blood Urea Nitrogen 13 mg/dL (9-20); Calcium 8.5 mg/dL (8.4-10.2); Carbon Dioxide 25 mmol/L (22-32); Chloride 101 mmol/L (98-107); Estimated Glomerular Filt Rate > 60 mL/min (>60); Globulin 2.8 g/dL (1.7-4.1); Glucose 229 mg/dL (70-99); HEMOLYSIS < 15 (0-50); Lipase 18 U/L (23-300); Magnesium 1.9 mg/dL (1.6-2.3); Potassium 4.5 mmol/L (3.4-5.1); Sodium 132 mmol/L (137-145); Total Protein 6.0 g/dL (6.3-8.2)
[2025-10-02 18:30] LABS: Ketones (Beta-Hydroxybutyrate) 0.05 mmol/L (<0.27)
[2025-10-02 18:42] LABS: Procalcitonin 0.073 ng/mL (<0.5)
[2025-10-02 19:44] LABS: Reflexed Lactate in 2 Hours Y
[2025-10-02] MEDS: PIPERACILLIN/TAZO 4.5 GM in SODIUM CHLORIDE 0.9% 100 ML IV (19:52)
[2025-10-02] MEDS: SODIUM CHLORIDE 0.9% 1,000 ML 1000 ML IV (19:53)
[2025-10-02 21:19] LABS: Lactate 2HR (Lactic Acid Rflx) 1.1 mmol/L (0.7-2.1)
--- NOTE | 2025-10-02 21:30 | PC.NURSE ---
Pt resting quietly with eyes closed, resps even and not labored. No distress noted at this time. Pt rouses easily to verbal stimuli and engages appropriately with RN at this time. Pt denies pain or complaint at this time. Continued plan of care discussed. No further requests or concern at this time. Pt connected to blood pressure and pulse ox monitors with alarms on and audible. VS stable at this time. Call light within reach. remains at bedside.
[2025-10-02 21:52] LABS: Appearance Urine UA CLEAR; Bilirubin Urine UA NEGATIVE (NEGATIVE); Color Urine UA YELLOW; Glucose Urine UA NEGATIVE (Negative); Ketones Urine UA NEGATIVE (NEGATIVE); Leukocyte Esterase Urine UA NEGATIVE (NEGATIVE); Nitrite Urine UA NEGATIVE (Negative); Occult Blood Urine UA NEGATIVE (Negative); Protein Urine UA NEGATIVE (Negative); Specific Gravity Urine UA 1.015 (1.000-1.035); Urobilinogen Urine UA 1.0 E.U./dL (0.2); pH Urine UA 6.5 (4.5-8.0)
[2025-10-02 22:07] LABS: Culture Indicated Urine Specimen Cultured
--- NOTE | 2025-10-02 23:50 | PC.NURSE ---
Provided snacks and po fluids per request, ok'd by Dr. Figueroa.
[2025-10-03] VITALS (17 sets, daily range): BP systolic 82–151; BP diastolic 60–82; PULSE 56–93; RESP 12–22; TEMP 36.6; O2SAT 93–98; BMI 26.4
[2025-10-03] MEDS: ONDANSETRON 4 MG/2 ML INJ IV ×2 (00:06→22:01)
[2025-10-03] MEDS: PIPERACILLIN/TAZO 3.375 GM in SODIUM CHLORIDE 0.9% 100 ML IV ×2 (04:21→16:42)
[2025-10-03] MEDS: SODIUM CHLORIDE 0.9% 1,000 ML 100 ML IV ×2 (04:21→16:43)
--- NOTE | 2025-10-03 04:25 | PM.HP.1 ---
History of Present Illness History of Present Illness Chief complaint: PC ref, Returning, UTI, postural hypotension Narrative: 61 old male with history of hypertension, hyperlipidemia, diabetes mellitus type 2, insulin-dependent, spinal surgery from T8-S1 done in [place] on 08/31/2025 presented to the ER with orthostatic hypotension including dizziness and lightheadedness. He has increased symptoms when he is standing or sitting up despite taking fluids. His orthostatic blood pressure was positive. The patient tried to see his PCP but was directed to ED for further evaluation. The patient denies any focal neurodeficit, fever, chest pain, palpitations, shortness of breath, nausea, vomiting, abdominal pain, diarrhea or dysuria. Laboratory shows WBC 6.8, hemoglobin 10.4, sodium 132, potassium 4.5, creatinine 1.14, lactic acid 2.1, magnesium 1.9, LFT normal, lipase 18, procalcitonin 0.0 73, UA positive for UTI, CT scan of the lumbar spine shows large posterior paravertebral fluid collection with mild rim enhancement with concern of osteomyelitis versus postsurgical changes. Spinal surgery was consulted over the phone and recommended no transfer out due to low suspicious for osteomyelitis. Most likely postoperative changes. In the ER the patient was given Zosyn 4.5 g IV, Zofran 4 mg IV, Dilaudid 1 mg IV and fluid bolus. 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: Never smoker alcohol intake: never Meds Home Medications and Allergies Home Medications ?Medication ?Instructions ?Recorded ?Confirmed ?Type lamotrigine 200 mg tablet 200 mg PO BID 09/03/23 09/25/25 History blood sugar diagnostic (Accu-Chek #10 ea 09/15/23 09/25/25 History Guide test strips) pantoprazole 20 mg tablet,delayed 20 mg PO BID 04/26/24 09/25/25 History release rosuvastatin 5 mg tablet 5 mg PO DAILY #90 tabs 01/12/25 09/25/25 Rx atenolol 25 mg tablet 25 mg PO DAILY #90 tabs 01/17/25 09/25/25 Rx lisinopril 20 mg tablet 20 mg PO BID #180 tabs 03/08/25 09/25/25 Rx celecoxib 200 mg capsule 200 mg PO BID #60 caps 05/02/25 09/21/25 Rx Held on 09/25/25. Instructions: holding while using other NSAIDs insulin aspart U-100 100 unit/mL See Rx Instructions .Route 08/15/25 09/25/25 Rx subcutaneous cartridge (Novolog .COMPLEX #20 mL PenFill U-100 Insulin aspart) acetaminophen 500 mg tablet 1,000 mg PO TID PRN 09/25/25 09/25/25 History (Tylenol Extra Strength) hydromorphone 2 mg tablet 2 mg PO Q4H PRN pain 09/25/25 09/25/25 History ibuprofen 200 mg tablet 400 mg PO Q6H 09/25/25 09/25/25 History polyethylene glycol 3350 17 17 g PO DAILY 09/25/25 09/25/25 History gram/dose oral powder (Miralax) sulfamethoxazole 800 1 tab PO BID 09/25/25 09/25/25 History mg-trimethoprim 160 mg tablet (Bactrim DS) tadalafil 5 mg tablet (Cialis) 5 mg PO DAILY PRN 09/25/25 09/25/25 History Allergies Allergy/AdvReac Type Severity Reaction Status Date / Time gabapentin AdvReac Intermediate agitation Verified 10/02/25 17:43 pregabalin (From Lyrica) AdvReac Intermediate agitation Verified 10/02/25 17:43 codeine AdvReac Mild Nausea Verified 10/02/25 17:43 tramadol AdvReac Mild lower Verified 10/02/25 17:43 seizure threshold muscle relaxers AdvReac post Uncoded 10/02/25 17:43 surgical delirium Review of Systems Review of Systems ROS: Yes All systems reviewed with the patient and are negative except as otherwise documented Constitutional Constitutional: Reports as per HPI and Reports system reviewed and no additional complaints, except as documented Eyes Eyes: Reports as per HPI and Reports system reviewed and no additional complaints, except as documented ENT Ears, Nose, Mouth, and Throat: Yes as per HPI and Yes system reviewed and no additional complaints, except as documented Cardiovascular Cardiovascular: Reports system reviewed and no additional complaints, except as documented Respiratory Respiratory: Reports system reviewed and no additional complaints, except as documented Gastrointestinal Gastrointestinal: Reports system reviewed and no additional complaints, except as documented Genitourinary Genitourinary: Reports system reviewed and no additional complaints, except as documented Musculoskeletal Musculoskeletal: Reports system reviewed and no additional complaints, except as documented, Reports abnormal gait and Reports numbness Neurologic Neurologic: Reports system reviewed and no additional complaints, except as documented, Reports abnormal gait, Reports confusion and Reports numbness Psychiatric Psychiatric: Reports system reviewed and no additional complaints, except as documented and Reports confusion Exam Vital Signs (past 8 hours): - 10/02/25 21:00 10/02/25 21:30 10/02/25 21:43 Pulse Rate 80 79 76 Respiratory Rate Blood Pressure Pulse Oximetry 97 95 93 Oxygen Delivery Method 10/02/25 21:43 10/02/25 21:45 10/02/25 21:45 Pulse Rate 75 Respiratory Rate 16 Blood Pressure 136/71 129/66 Pulse Oximetry 97 Oxygen Delivery Method Room Air 10/02/25 22:00 10/02/25 22:00 10/02/25 22:15 Pulse Rate 75 Respiratory Rate Blood Pressure 131/74 128/71 Pulse Oximetry 92 Oxygen Delivery Method 10/02/25 22:15 10/02/25 22:30 10/02/25 22:30 Pulse Rate 75 76 Respiratory Rate Blood Pressure 128/75 Pulse Oximetry 94 98 Oxygen Delivery Method 10/02/25 22:45 10/02/25 22:45 10/02/25 23:00 Pulse Rate 75 74 Respiratory Rate Blood Pressure 150/82 H Pulse Oximetry 99 96 Oxygen Delivery Method 10/02/25 23:00 10/02/25 23:15 10/02/25 23:15 Pulse Rate 73 Respiratory Rate Blood Pressure 138/79 147/73 H Pulse Oximetry 95 Oxygen Delivery Method 10/02/25 23:30 10/02/25 23:30 10/02/25 23:45 Pulse Rate 69 Respiratory Rate Blood Pressure 139/73 138/82 Pulse Oximetry 93 Oxygen Delivery Method Room Air 10/02/25 23:45 10/03/25 00:00 10/03/25 00:00 Pulse Rate 78 78 Respiratory Rate 20 14 Blood Pressure 141/76 H Pulse Oximetry 97 96 Oxygen Delivery Method Room Air Room Air 10/03/25 00:15 10/03/25 00:15 10/03/25 00:20 Pulse Rate 79 Respiratory Rate Blood Pressure 148/82 H 148/73 H Pulse Oximetry 97 Oxygen Delivery Method Room Air 10/03/25 00:20 10/03/25 00:23 10/03/25 00:23 Pulse Rate 76 92 H Respiratory Rate Blood Pressure 125/72 Pulse Oximetry 96 97 Oxygen Delivery Method Room Air Room Air 10/03/25 00:24 10/03/25 00:24 10/03/25 00:30 Pulse Rate 91 H 93 H Respiratory Rate 16 Blood Pressure 117/72 148/73 H Pulse Oximetry 97 Oxygen Delivery Method Room Air 10/03/25 00:30 10/03/25 00:30 10/03/25 00:31 Pulse Rate 83 91 H Respiratory Rate 22 Blood Pressure 130/71 125/72 Pulse Oximetry 98 Oxygen Delivery Method Room Air 10/03/25 00:32 10/03/25 00:45 10/03/25 00:45 Pulse Rate 92 H 78 Respiratory Rate 22 Blood Pressure 117/72 135/77 Pulse Oximetry 97 Oxygen Delivery Method Room Air 10/03/25 01:00 10/03/25 01:00 10/03/25 01:16 Pulse Rate 72 78 Respiratory Rate Blood Pressure 127/69 Pulse Oximetry 96 95 Oxygen Delivery Method Room Air Room Air 10/03/25 01:16 10/03/25 01:30 10/03/25 01:30 Pulse Rate 80 Respiratory Rate Blood Pressure 128/73 123/67 Pulse Oximetry 93 Oxygen Delivery Method Room Air 10/03/25 01:45 10/03/25 01:45 Pulse Rate 79 Respiratory Rate 14 Blood Pressure 151/74 H Pulse Oximetry 95 Oxygen Delivery Method Room Air Oxygen Delivery Method Room Air Const General: cooperative, comfortable and well developed Orientation: alert and oriented x3 HENMT Head: normal to inspection, normocephalic and atraumatic Face and sinus: normal facial exam Mouth: oral mucosae normal and moist mucous membranes Throat: posterior oropharynx normal Eyes General: appearance normal, both eyes and all related structures Pupils: PERRL EOM: EOM intact bilaterally Neck Neck: normal visual inspection and full ROM Chest Chest: normal inspection of the chest Resp Effort & Inspection: normal respiratory effort and able to speak in complete sentences Auscultation: clear to auscultation bilaterally Cardio Palpation: normal PMI Rate: regular rate Rhythm: regular rhythm Heart Sounds: S1 normal and S2 normal GI Inspection: normal to inspection Palpation: soft and no hepatosplenomegaly Auscultation: normal bowel sounds Skin General: no rashes or lesions noted Lesions: no lesions Rashes: no rashes Trauma: no lacerations or abrasions Neuro General: patient alert, patient awake, patient oriented x3 and no focal motor deficits Cranial Nerves: CN's II-XI intact bilaterally Cognition: normal cognition Speech: speech normal Gait: normal gait Motor: muscle tone normal throughout Sensory Exam: no sensory deficits noted Extrem General: full ROM and no calf tenderness Psych Appearance: grossly normal Mental Status: mental status grossly normal Speech and Movement: speech and movement normal Objective Labs 10/02/25 17:56 10/02/25 17:56 Labs: Laboratory Results - last 24 hr 10/02/25 10/02/25 10/02/25 17:56 20:58 21:00 WBC 6.8 RBC 3.62 L Hgb 10.4 L Hct 30.7 L MCV 84.8 MCH 28.8 MCHC 33.9 RDW 15.3 H Plt Count 474 H Neut % (Auto) 64.4 Lymph % (Auto) 26.6 Winn % (Auto) 6.8 Eos % (Auto) 1.6 L Baso % (Auto) 0.6 Neut # (Auto) 4400 Lymph # (Auto) 1800 Winn # (Auto) 500 Eos # (Auto) 100 Baso # (Auto) 0 ESR 39 H Sodium 132 L Potassium 4.5 Chloride 101 Carbon Dioxide 25 BUN 13 Creatinine 1.14 Estimated GFR > 60 BUN/Creatinine Ratio 11.4 Glucose 229 H Lactate 2.1 1.1 Calcium 8.5 Magnesium 1.9 Total Bilirubin 0.4 AST 28 ALT 16 Alkaline Phosphatase 157 H C-Reactive Protein 0.7 Total Protein 6.0 L Albumin 3.2 L Globulin 2.8 Albumin/Globulin Ratio 1.1 Lipase 18 L Procalcitonin 0.073 Urine Color Yellow Urine Appearance Clear Urine pH 6.5 Ur Specific Paron 1.015 Urine Protein Negative Urine Glucose (UA) Negative Urine Ketones Negative Urine Occult Blood Negative Urine Nitrate Negative Urine Bilirubin Negative Urine Urobilinogen 1.0 Ur Leukocyte Esterase Negative Urine RBC None seen Urine WBC 5-10/hpf H Ur Squamous Epith Cells None seen Urine Bacteria None seen Ur Culture Indicated? Specimen cultured Vol Urine Centrifuged 10ml (spun) Ketones 0.05 Assessment & Plan Assessment & Plan narrative: UTI -Blood culture, urine culture, - Continue Zosyn from the ED -Monitor for urine retention, check post void residuals. Dehydration/orthostatic blood pressure. Start fluids and monitor. Hypertension. Hold lisinopril for now. Hydralazine as needed Hyperlipidemia. Restart rosuvastatin GERD. Restart lisinopril. Diabetes mellitus, type II with long-term current use of insulin, uncontrolled with hyperglycemia, -check HbA1c. -Continue to monitor blood sugar. -Continue diabetic diet with sliding scale insulins with NovoLog sliding scale. -hypoglycemia protocol as needed I performed this consultation using real-time telehealth tools, including a live video connection between my location and the patient's location. As the provider for this telehealth service, I attest that I introduced myself to the patient, provided my credentials, disclosed my location, and determined that, based on a review of the patients chart and/or a discussion with members of the patient's treatment team, telemedicine via a real-time, two-way, interactive audio and video platform is an appropriate and effective means of providing this service. The patient and I mutually agree that this visit is appropriate for telemedicine as well. Disclaimer Note: To increase efficiency, your provider may have prepared this document using voice recognition technology. In that case, if a word or phrase is confusing, or does not make sense, this is likely due to a recognition error within the program which was not discovered during the provider?s review. If you believe an error has occurred, please notify your provider?s office at your earliest convenience, so we can correct any mistakes. Time-Based Coding :: 50 min spent with patient and on the chart (including review of chart, obtaining history, exam, reviewing outside data, placing orders, documenting exam and treatment plan, and counseling patient) on 10/03/2025. Quality VTE Deep Vein Thrombosis/Pulmonary Embolism Present on Admission: No MIPS - Admit I confirm the patient?s Advance Care Plan is present, Code status is documented, Surrogate decision maker is in patient?s record [If Yes, STOP here]: Yes MIPS - Meds 'Current medications' to include all prescriptions, [id number] products, herbals, cannabis/cannabidiol products, and vitamin/mineral/dietary (nutritional) supplements. I have utilized all available resources to obtain, update, or review the patient?s current medications. [If Yes, STOP here]: Yes
[2025-10-03 07:23] LABS: Alanine Aminotransferase 13 IU/L (<50); Albumin 3.0 g/dL (3.5-5.0); Albumin Globulin Ratio 1.1 (1.0-2.8); Alkaline Phosphatase 135 U/L (38-126); Blood Urea Nitrogen 10 mg/dL (9-20); Calcium 8.4 mg/dL (8.4-10.2); Carbon Dioxide 28 mmol/L (22-32); Chloride 103 mmol/L (98-107); Cholesterol 94 mg/dL (140-199); Estimated Glomerular Filt Rate > 60 mL/min (>60); Globulin 2.7 g/dL (1.7-4.1); Glucose 111 mg/dL (70-99); HDL Cholesterol 34 mg/dL (40-60); HEMOLYSIS < 15 (0-50); Magnesium 2.1 mg/dL (1.6-2.3); Potassium 4.5 mmol/L (3.4-5.1); Sodium 137 mmol/L (137-145); Total Protein 5.7 g/dL (6.3-8.2); Triglycerides 151 mg/dL (35-150)
--- NOTE | 2025-10-03 09:14 | PM.HP.1 ---
History of Present Illness History of Present Illness Date Patient Seen: 10/03/25 Chief complaint: PC ref, Returning, UTI, postural hypotension Narrative: This is a 61 year old male with hypertension, hyperlipidemia, diabetes mellitus type 2, insulin-dependent and recent spinal surgery from T8-S1 done at [facility] on 08/31/2025 who presented to the ER with orthostatic hypotension symptoms including dizziness and lightheadedness. He has increased symptoms when he is standing or sitting up, despite taking fluids. His orthostatic blood pressure was positive with a drop into the 80's when standing. The patient denies any focal neurodeficit, fever, chest pain, palpitations, shortness of breath, nausea, vomiting, abdominal pain, diarrhea or dysuria. He was seen here last week for E coli UTI/bacteremia, was transferred from the ED to [facility] to rule out a postoperative complication and was discharged home after 4 days of IV antibiotics with 6 more days of oral Bactrim, per his 's report. Laboratory shows WBC 6.8, hemoglobin 10.4, sodium 132, potassium 4.5, creatinine 1.14, lactic acid 2.1, magnesium 1.9, LFT normal, lipase 18, procalcitonin 0.073, UA suggestive of continuing UTI, CT scan of the lumbar spine with a large posterior paravertebral fluid collection with mild rim enhancement with concern for osteomyelitis versus postsurgical changes. Spinal surgery was consulted over the phone and recommended no transfer out due to low suspicious for osteomyelitis. Most likely postoperative changes. In the ER the patient was given Zosyn 4.5 g IV, Zofran 4 mg IV, Dilaudid 1 mg IV and fluid bolus. Const General: cooperative, comfortable and well developed Orientation: alert and oriented x3 HENMT Head: normal to inspection, normocephalic and atraumatic Face and sinus: normal facial exam Mouth: oral mucosa normal and moist mucous membranes Throat: posterior oropharynx normal Eyes General: appearance normal, both eyes and all related structures Pupils: PERRL EOM: EOM intact bilaterally Neck Neck: normal visual inspection and full ROM Chest Chest: normal inspection of the chest Resp Effort & Inspection: normal respiratory effort and able to speak in complete sentences Auscultation: clear to auscultation bilaterally Cardio Palpation: normal PMI Rate: regular rate Rhythm: regular rhythm Heart Sounds: S1 normal and S2 normal GI Inspection: normal to inspection, not tender Palpation: soft and no hepatosplenomegaly Auscultation: normal bowel sounds Skin General: no rashes or lesions noted Lesions: no lesions Rashes: no rashes Trauma: no lacerations or abrasions Normal appearing vertical scar over the spine. No redness, tenderness or swelling. Neuro General: patient alert, patient awake, patient oriented x3 and no focal motor deficits Cranial Nerves: CN's II-XI intact bilaterally Cognition: normal cognition Speech: speech normal Gait: normal gait Motor: muscle tone normal throughout Sensory Exam: no sensory deficits noted Extrem General: full ROM and no calf tenderness Psych Appearance: grossly normal Mental Status: mental status grossly normal Speech and Movement: speech and movement normal Assessment & Plan Incompletely treated E.Coli Bacteremia/UTI -Repeat Blood culture, urine culture, -09/21 ED UC/BC with multidrug resistant E.coli -Failure of outpatient Bactrim PO (prescribed per [facility]) -Continue Zosyn or Meropenem for 14 more days (until 10/17), likely can finish at home with PICC -Monitor for urine retention, check post void residuals. Dehydration/orthostatic blood pressure. -Start fluids and monitor. -Hold Atenolol and Lisinopril Hypertension. Hold lisinopril and Atenolol for now. Hydralazine as needed H/O Trigeminy -Has been treated with Atenolol for years -Resume Atenolol when standing low blood pressures resolve. Hyperlipidemia. -Restart rosuvastatin GERD. -Restart prontonix Diabetes mellitus, type II with long-term current use of insulin, uncontrolled with hyperglycemia, -check HbA1c. -Continue to monitor blood sugar. -Continue diabetic diet with sliding scale insulins with NovoLog sliding scale. -hypoglycemia protocol as needed Enoxaparin for DVT prevention. His is his backup decision maker. 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 alcohol intake: never Meds Home Medications and Allergies Home Medications ?Medication ?Instructions ?Recorded ?Confirmed ?Type lamotrigine 200 mg tablet 200 mg PO BID 09/03/23 10/03/25 History blood sugar diagnostic (Accu-Chek #10 ea 09/15/23 10/03/25 History Guide test strips) pantoprazole 20 mg tablet,delayed 20 mg PO BID 04/26/24 10/03/25 History release rosuvastatin 5 mg tablet 5 mg PO DAILY #90 tabs 01/12/25 10/03/25 Rx atenolol 25 mg tablet 25 mg PO DAILY #90 tabs 01/17/25 10/03/25 Rx lisinopril 20 mg tablet 20 mg PO BID #180 tabs 03/08/25 10/03/25 Rx celecoxib 200 mg capsule 200 mg PO BID #60 caps 05/02/25 10/03/25 Rx Held on 09/25/25. Instructions: holding while using other NSAIDs insulin aspart U-100 100 unit/mL See Rx Instructions .Route 08/15/25 10/03/25 Rx subcutaneous cartridge (Novolog .COMPLEX #20 mL PenFill U-100 Insulin aspart) acetaminophen 500 mg tablet 1,000 mg PO TID PRN pain 09/25/25 10/03/25 History (Tylenol Extra Strength) hydromorphone 2 mg tablet 2 mg PO Q4H PRN pain 09/25/25 10/03/25 History ibuprofen 200 mg tablet 400 mg PO Q6H 09/25/25 10/03/25 History polyethylene glycol 3350 17 17 g PO DAILY 09/25/25 10/03/25 History gram/dose oral powder (Miralax) sulfamethoxazole 800 1 tab PO BID 09/25/25 10/03/25 History mg-trimethoprim 160 mg tablet (Bactrim DS) tadalafil 5 mg tablet (Cialis) 5 mg PO DAILY PRN sexual activity 09/25/25 10/03/25 History naloxone 4 mg/actuation nasal spray 1 spray intranasal PRN PRN opioid 10/03/25 10/03/25 History overdose Allergies Allergy/AdvReac Type Severity Reaction Status Date / Time gabapentin AdvReac Intermediate agitation Verified 10/02/25 17:43 pregabalin (From Lyrica) AdvReac Intermediate agitation Verified 10/02/25 17:43 codeine AdvReac Mild Nausea Verified 10/02/25 17:43 tramadol AdvReac Mild lower Verified 10/02/25 17:43 seizure threshold muscle relaxers AdvReac post Uncoded 10/02/25 17:43 surgical delirium Exam Vital Signs (past 8 hours): - 10/03/25 01:16 10/03/25 01:16 10/03/25 01:30 Pulse Rate 78 Respiratory Rate Blood Pressure 128/73 123/67 Blood Pressure [Right Arm] Pulse Oximetry 95 Oxygen Delivery Method Room Air 10/03/25 01:30 10/03/25 01:45 10/03/25 01:45 Pulse Rate 80 79 Respiratory Rate 14 Blood Pressure 151/74 H Blood Pressure [Right Arm] Pulse Oximetry 93 95 Oxygen Delivery Method Room Air Room Air 10/03/25 06:55 10/03/25 07:51 Pulse Rate 78 73 Respiratory Rate 18 12 Blood Pressure 128/75 Blood Pressure [Right Arm] 132/75 Pulse Oximetry 97 95 Oxygen Delivery Method Room Air Room Air Oxygen Delivery Method Room Air Narrative Exam Narrative: Positive for orthostatic lower extremity weakness, recent episodes of delirium and forgetfulness. Negative for fevers, chills, sweats, dysuria, bleeding, rash, chest pain, abdominal pain, nausea, vomiting, sore throat and headaches. Objective Labs 10/02/25 17:56 10/03/25 06:54 Labs: Laboratory Results - last 24 hr 10/02/25 10/02/25 10/02/25 17:56 20:58 21:00 WBC 6.8 RBC 3.62 L Hgb 10.4 L Hct 30.7 L MCV 84.8 MCH 28.8 MCHC 33.9 RDW 15.3 H Plt Count 474 H Neut % (Auto) 64.4 Lymph % (Auto) 26.6 Gove % (Auto) 6.8 Eos % (Auto) 1.6 L Baso % (Auto) 0.6 Neut # (Auto) 4400 Lymph # (Auto) 1800 Gove # (Auto) 500 Eos # (Auto) 100 Baso # (Auto) 0 ESR 39 H Sodium 132 L Potassium 4.5 Chloride 101 Carbon Dioxide 25 BUN 13 Creatinine 1.14 Estimated GFR > 60 BUN/Creatinine Ratio 11.4 Glucose 229 H POC Whole Bld Glucose Lactate 2.1 1.1 Calcium 8.5 Magnesium 1.9 Total Bilirubin 0.4 AST 28 ALT 16 Alkaline Phosphatase 157 H C-Reactive Protein 0.7 Total Protein 6.0 L Albumin 3.2 L Globulin 2.8 Albumin/Globulin Ratio 1.1 Triglycerides Cholesterol LDL Cholesterol, Calc HDL Cholesterol Lipase 18 L Procalcitonin 0.073 Urine Color Yellow Urine Appearance Clear Urine pH 6.5 Ur Specific Sixes 1.015 Urine Protein Negative Urine Glucose (UA) Negative Urine Ketones Negative Urine Occult Blood Negative Urine Nitrate Negative Urine Bilirubin Negative Urine Urobilinogen 1.0 Ur Leukocyte Esterase Negative Urine RBC None seen Urine WBC 5-10/hpf H Ur Squamous Epith Cells None seen Urine Bacteria None seen Ur Culture Indicated? Specimen cultured Vol Urine Centrifuged 10ml (spun) Ketones 0.05 10/03/25 10/03/25 06:54 08:24 WBC RBC Hgb Hct MCV MCH MCHC RDW Plt Count Neut % (Auto) Lymph % (Auto) Gove % (Auto) Eos % (Auto) Baso % (Auto) Neut # (Auto) Lymph # (Auto) Gove # (Auto) Eos # (Auto) Baso # (Auto) ESR Sodium 137 Potassium 4.5 Chloride 103 Carbon Dioxide 28 BUN 10 Creatinine 1.05 Estimated GFR > 60 BUN/Creatinine Ratio 9.5 Glucose 111 H D POC Whole Bld Glucose 151 H Lactate Calcium 8.4 Magnesium 2.1 Total Bilirubin 0.6 AST 27 ALT 13 Alkaline Phosphatase 135 H C-Reactive Protein Total Protein 5.7 L Albumin 3.0 L Globulin 2.7 Albumin/Globulin Ratio 1.1 Triglycerides 151 H Cholesterol 94 L LDL Cholesterol, Calc 30 HDL Cholesterol 34 L Lipase Procalcitonin Urine Color Urine Appearance Urine pH Ur Specific Sixes Urine Protein Urine Glucose (UA) Urine Ketones Urine Occult Blood Urine Nitrate Urine Bilirubin Urine Urobilinogen Ur Leukocyte Esterase Urine RBC Urine WBC Ur Squamous Epith Cells Urine Bacteria Ur Culture Indicated? Vol Urine Centrifuged Ketones Assessment & Plan Time-Based Coding :: [TOTAL MINUTES] spent with patient and on the chart (including review of chart, obtaining history, exam, reviewing outside data, placing orders, documenting exam and treatment plan, and counseling patient) on [DATE]. Quality VTE Deep Vein Thrombosis/Pulmonary Embolism Present on Admission: No
--- NOTE | 2025-10-03 11:27 | PT.IIE ---
Surgical History (Last Reviewed 08/16/25 @ 14:59 by Marcio Rojo MD) Hx laparoscopic cholecystectomy Medical History (Last Updated 08/16/25 @ 15:35 by Marcio Rojo MD) BPH w urinary obs/LUTS Chronic low back pain Chronic, continuous use of opioids Erectile dysfunction Essential hypertension GERD without esophagitis History of colonic polyps Mixed hyperlipidemia Nocturia Obstructive sleep apnea Overweight Primary osteoarthritis involving multiple joints Type 1 diabetes mellitus with hyperlipidemia Urinary frequency Physical Therapy Inpatient Evaluation/Re-Eval M1 PT IP Prior Functional Status Start: 10/03/25 12:32 Freq: Status: Active Protocol: Document 10/03/25 12:32 NW (Rec: 10/03/25 12:53 NW [id number]) Medical Review Prior Functional Status Communication Clear and concise, 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 Mobility and Gait Recent spinal fusion T8-S1 on 08/31/25. Has been in and out of the hospital with UTI and working with home health. Utilizing FWW for 400 ft prior to this admission. Prior Functional Continues to do bed level exercises. Over last 3 days Level (Other details pt has had decrease in BP and has been passing out upon ) sitting and standing. Wears compression garmets. 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 Pt is found visiting with spouse (she was an hospice/home health aide). Pt has been in and out of hospitals since spinal surgery with re-occurring UTI. Pt has been working with home health. Denies any additional red flag symptoms. Patient Goals Go home. M4 PT-IP Mobility and Gait Start: 10/03/25 12:32 Freq: Status: Active Protocol: Document 10/03/25 12:32 NW (Rec: 10/03/25 12:53 NW [id number]) PT-Bed Mobility Assessment Rolling Type of Rolling Log Rolling,Roll to Right Level of Assist Standby Assistance Supine to Sit Supine to Sit Contact Guard Assistance Sit to Supine Sit to Supine Contact Guard Assistance Scooting Scooting Up and Down Standby Assistance in Bed PT-Transfer Assessment Sit to and From Stand Sit to and from Contact Guard Assistance,1 Person Assistance,Use of Stand Upper Extremities Equipment Transfer Assistive Gait Belt,Front Wheeled Walker Device Comments Mobility Comments supine vitals 145/76, seated edge of bed 115/70 * asymptomatic re-assessed 2 minutes, standing 82/60 with symptoms within 1 minute. Returned to supine with BP of 142/75 2 mins post. Able to stand with unilateral UE support on FWW. PT-Balance Assessment Sitting Balance and Reactions Static Sitting Normal Balance Ability Dynamic Sitting Good Balance Ability Standing Balance and Reactions Static Standing Fair Balance Ability Dynamic Standing Poor Balance Ability Device Used FWW M5 PT-IP Objective Assessments Start: 10/03/25 12:32 Freq: Status: Active Protocol: Document 10/03/25 12:32 NW (Rec: 10/03/25 12:53 NW [id number]) Orientation Orientation/Cognition Level of Alertness Alert Orientation Name,Age,Birthday,Month,Date,Year,Day of Week,Place, Situation Language Function No Deficits Noted Ability Safety Awareness Understands Safety Issues Memory Description No Deficits Noted Gross Range of Motion Upper Extremity ROM Assessment Within Functional Limits Lower Extremity ROM Assessment Within Functional Limits Strength Upper Extremity Strength Assessment Within Functional Limits Lower Extremity Strength Assessment Right Impaired Hip SLR 3/5, hip flexion WFL with shortened length Knee WFL Ankle WFL Comments Strength Comments Able to complete bridge without pain with good power production. Good power production upon stance. Sensation Assessment Sensation Gross Sensation WNL Muscle Tone Muscle Tone WNL Yes Other Assessments Other Other Assessments Orthostatics, see above. M6 PT-IP Treatment Start: 10/03/25 12:32 Freq: Status: Active Protocol: Document 10/03/25 12:32 NW (Rec: 10/03/25 12:53 NW [id number]) Physical Therapy Treatment Education Education Provided Safety Other Treatments Other Treatment Education on bed level exercises to be performed to Performed maintain strength. 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 M7 PT-IP Assessment and Plan Start: 10/03/25 12:32 Freq: Status: Active Protocol: Document 10/03/25 12:32 NW (Rec: 10/03/25 12:53 NW [id number]) PT Summary Assessment and Plan Potential Rehabilitation Excellent Potential Status of Condition Evolving at Evaluation Summary Impairments Strength,Transfers,Gait,Activity Tolerance Assessment Summary Rubén is a 70 yr old male admitted for re-occurring UTI and low blood pressure. Pt has had recent spinal fusion from T8-S1 on 08/31/25 and has had a medically complicated hospitalization following. Pt has been since discharge re-admitted secondary to first UTI and then discharged home with HH with spouse for support at home. Pt states he was ambulatory with FWW for 400 ft with no signs of exertion. Upon assessment pt has WFL strength and ROM to perform bed mobility and STS with FWW at [facility]. Upon vital assessment pt is + for orthostatic hypotension and requires to lay back down. Pt is aware of symptoms and is able to verbalize when needing to lay down. Pt requires skilled care to maintain current strength and progress functional mobility back to PLOF. Currently recommending HH once medically stable to discharge. Goals Bed Mobility Goal Independent Transfer Goal Independent Gait Goal Standby Assistance Gait Distance 100 Other Goals Tolerate standing > 3 minutes without drop in blood pressure with FWW at C[facility]. Days to Meet Goals 5 Frequency of Treatment Frequency Of Once a Day Treatment Treatment Plan Physical Therapy Transfer Training,Gait Training,Therapeutic Exercise, Treatment Plan Balance Retraining,Discharge Planning,Neuromuscular Re- ed Precautions Lumbar Precautions Log Roll,No Twisting,Limit Bending,Lifting Restriction of 10 lbs,Gait Belt above Incisional Area Other Precautions Orthostatic hypotension Weight Bearing Status Weight Bearing Weight Bear as Tolerated Status Recommendations To Nursing Amount of Assist Mechanical Lift Needed Discharge Recommendations PT Discharge Home with Assistance,Home Health Recommendations Transportation Needs Private Vehicle at Discharge - PT assist 1
--- NOTE | 2025-10-03 11:35 | PC.NURSE ---
Postural drop: Working with PT. No dizziness or fainting feeling to start. Posturals done see documentation. Lying 146/725 Sitting 115/70 Standing 82/60 Became dizzy in minutes and had to sit back down. Once back down he the dizziness left. Last BP 142/75.
--- NOTE | 2025-10-03 11:53 | OT.IPNOTE ---
Pt having orthrostatic readings with PT and symptomatic. To check on pt tomorrow for OT eval.
--- NOTE | 2025-10-03 13:51 | CM.IDA ---
Initial DCP Assessment Note Patient is 70 y/o male who presents to due to concern for orthostatic hypotension, re-occurring UTI. Patient had recent spinal surgery at [facility] on 08/31/25, discharged from [facility] on 09/12/25. Patient had re-admission at [facility] from 09/22/25-09/24/25 due to post op complications, patient discharged with [facility]. Patient's PCP is Dr. Rojo, Patient has [employer] and [employer] part A insurances. Patient has upcoming appt with Dr. Rojo on 10/05/25, it is uncertain if patient will still be in the hospital, appt will likely need to be re-scheduled. Patient has hx of insulin dependent Diabetes, hypertension, and hyperlipidemia. EVP GENERAL COUNSEL enters room to meet with patient, present in room is patient's spouse. Patient presents as A/Ox4. Patient resides at home with spouse in [place]. Patient endorses that spouse has been providing caregiver support since patient has been home from the hospital, it is reported that patient has been utilizing FWW. Patient endorses he has been able to ambulate and spouse utilizes gait belt with patient as needed, patient has episodes of increased weakness. Patient is independent with ADLs and drives at baseline but has been in and out of the hospital the last month and had limited time to rehabilitate. Patient states that [facility] services barely just started, it is reported he only has PT service but is hoping to add RN to resumption orders. Patient and spouse endorse preference to d/c to home with home health. PT evaluated patient and recommends home with assistance and home health. Patient admitted by hospitalist due to concern for Orthostatic hypotension, acute UTI and abnormal CT scan or lumbar spine. Plan: patient to be admitted for further treatment and evaluation, DCP to f/u with PT and [facility]. MEHUL Brown Discharge Planning/Care Management CM Discharge Assessment Start: 10/03/25 03:53 Freq: Status: Active Protocol: Document 10/03/25 13:32 LN (Rec: 10/03/25 13:37 LN [id number]) Discharge Planning Assessment Assigned Discharge MEHUL Dumont Windows Support Engineer Provider Dr. Rojo Insurance Medicare,Other (enter in Comment) Insurance Comment Primary: [employer], secondary Medicare Part A DPOA/Assigned Christina McVein/ Spouse Designee Name Contact Information [phone] Advance Directives? Yes: DNR/DNI document Advance Directives No on File History Provided By Patient,Significant Other,Medical Record Has Patient been Yes admitted in last 30 days? Comment Admission at [facility] 08/30/25-09/12/25 and 09/22/25-09/24/25 Prior Living House Arrangements Household Members spouse Type of Drives own vehicle transporation used prior to admit Independent with ADL Yes 's Is patient alert and Yes oriented? Needs Assistance Managing Medications,Home Chores / Shopping With DME Already Rented / FWW / Walker Owned Patient/Family Home with Home Health Preference Comment Patient has current referral with [facility], patient will need resumption orders and to add RN to current PT service. Discharge Plan Home Community Services Physical Therapy Transportation Spouse Arrangement Referrals Initiated Home Health Additional Comment Resumption orders for RN and PT with [facility]
[2025-10-03] MEDS: ACETAMINOPHEN 325 MG TABLET 975 MG PO (14:00)
--- NOTE | 2025-10-03 14:35 | PC.NURSE ---
Patient's asking about abx. Unclear to this nurse as to which abx were given. One abx given according to MAR. An abx was attached to the patient but not flowing or running. Abx ordered for 1100 was not signed off in the MAR. Charge nurse made aware. Charge nurse to look into the issue.
--- NOTE | 2025-10-03 15:02 | PC.NURSE ---
Ketty RN called to verify if antibiotic dose from 1145 was administered to patient. According to [facility] this medication had not been pulled for this patient. Primary RN, admitting RN and Patient aware.
--- NOTE | 2025-10-03 15:06 | CM.MNRNOTE ---
pip silvia documented as not given. pip/silvia was never pulled after pixus review charge nurse confirms meds were not given to the patient.
--- NOTE | 2025-10-03 17:19 | DIET.INSP ---
Nutrition/Diabetes Insulin Pump Consult Assessment: 70 y M admitted for UTI Met with pt in room. has been on pump for 7+ years. All BG taken here within normal limits. Reports last A1c 2 months ago was 6.2%. Total daily insulin is about 24 units daily. Is wanting a general diet. Based on assessment with pt, RD feels this is appropriate as pt is able to adjust bolus accordingly and knowledgeable about his pump. BG taken at POC was 123, pt's CGM reporting 121. Reports no issues with supplies for pump/insulin. Type of pump: medtronic/minimed Blood Sugar Information Patient stated blood sugar goals: 80-130 What blood sugar the patient considers hypoglycemia: <70 Treatment: gatorade Nutrition Information Do they carb count? Y Interventions: Reviewed blood sugar goals during hospitalization Provided juice in room per request, pt reports is bringing his gatorade Determined general diet is appropriate as pt is well aware of counting carbs and adjusting bolus Changed diet order to general Monitoring and Evaluation: BG
[2025-10-03] MEDS: PANTOPRAZOLE DR 20 MG TABLET PO (21:49)
[2025-10-03] MEDS: ATORVASTATIN 20 MG TABLET 10 MG PO (21:49)
[2025-10-04] MEDS: PIPERACILLIN/TAZO 3.375 GM in SODIUM CHLORIDE 0.9% 100 ML IV ×2 (00:01→08:51)
[2025-10-04] MEDS: INSULIN PUMP 1 REQUEST MISC (00:05)
[2025-10-04] MEDS: SODIUM CHLORIDE 0.9% 1,000 ML 100 ML IV (02:01)
[2025-10-04] MEDS: ACETAMINOPHEN 325 MG TABLET 975 MG PO ×2 (02:57→20:35)
[2025-10-04] MEDS: IBUPROFEN 400 MG TABLET 200 MG PO ×2 (02:58→20:38)
--- NOTE | 2025-10-04 05:23 | PC.NURSE ---
Pt's blood sugar 126 @1900
[2025-10-04 07:03] LABS: Add Manual Diff / Slide Review NO; Hematocrit 29.4 % (41-53); Hemoglobin 9.9 g/dL (13.5-17.5); Lymphocytes Absolute Auto 1300 /uL (1100-4500); Mean Corpuscular HGB Conc 33.6 % (30-36); Mean Corpuscular Hemoglobin 28.8 PG (26-34); Mean Corpuscular Volume 85.7 fL (80-100); Platelet Count 372 X10^3/uL (150-400)
--- NOTE | 2025-10-04 07:12 | PM.PN.1 ---
Subjective Subjective Date Patient Seen: 10/04/25 Interval history: This is a 61 year old male with hypertension, hyperlipidemia, diabetes mellitus type 2, insulin-dependent and recent spinal surgery from T8-S1 done at [facility] on 08/31/2025 who presented to the ER with orthostatic hypotension symptoms including dizziness and lightheadedness. He has increased symptoms when he is standing or sitting up, despite taking fluids. His orthostatic blood pressure was positive with a drop into the 80's when standing. The patient denies any focal neurodeficit, fever, chest pain, palpitations, shortness of breath, nausea, vomiting, abdominal pain, diarrhea or dysuria. He was seen here last week for E coli UTI/bacteremia, was transferred from the ED to [facility] to rule out a postoperative complication and was discharged home after 4 days of IV antibiotics with 6 more days of oral Bactrim, per his 's report. Laboratory shows WBC 6.8, hemoglobin 10.4, sodium 132, potassium 4.5, creatinine 1.14, lactic acid 2.1, magnesium 1.9, LFT normal, lipase 18, procalcitonin 0.073, UA suggestive of continuing UTI, CT scan of the lumbar spine with a large posterior paravertebral fluid collection with mild rim enhancement with concern for osteomyelitis versus postsurgical changes. Spinal surgery was consulted over the phone and recommended no transfer out due to low suspicious for osteomyelitis. Most likely postoperative changes. In the ER the patient was given Zosyn 4.5 g IV, Zofran 4 mg IV, Dilaudid 1 mg IV and fluid bolus. 10/05: He is feeling better and looks much healthier today. Urine culture and blood cultures so far have no growth. Per further discussion with his it seems that the initial blood culture done at [facility] was negative so the oral antibiotics were felt to be appropriate at that discharge. It was the original blood culture here on 09/21 that grew E coli. The hemoglobin is 9.9. He was able to stand and do some physical therapy today without pressures dropping as much and without the leg weakness. Alert and oriented x3. No apparent distress. His affect was appropriate during my initial visit but on the 2nd visit when I was discussing his observed mild cognitive and memory loss with his he closed his eyes and looked away, trying to fall asleep? Heart is regular rate and rhythm without murmur. Lungs are clear to auscultation bilaterally. Extremities have no ankle edema. Assessment & Plan Incompletely treated E.Coli Bacteremia/UTI -Repeat Blood culture, urine culture so far with no growth. -09/21 ED UC/BC with multidrug resistant E.coli -Failure of outpatient Bactrim PO (prescribed per [facility]). Apparently there blood culture from 09/22 was negative, according to his . -Continue Zosyn or Meropenem for 14 more days (until 10/17), likely can finish at home with PICC. Place midline. -Monitor for urine retention, check post void residuals. Dehydration/orthostatic blood pressure. -okay to discontinue IV fluids today. -continue holding Atenolol and Lisinopril Hypertension. Hold lisinopril and Atenolol for now. Hydralazine as needed H/O Trigeminy -Has been treated with Atenolol for years -Resume Atenolol when standing low blood pressures resolve. Hyperlipidemia. -Restart rosuvastatin GERD. -Restart prontonix Diabetes mellitus, type II with long-term current use of insulin, uncontrolled with hyperglycemia, -check HbA1c. Last A1c 6.6 in July. -Continue to monitor blood sugar. -Continue diabetic diet with sliding scale insulins with NovoLog sliding scale. -hypoglycemia protocol as needed Disposition is return home on home health RN/PT/OT/IV ertapenem infusion for total of 10-14 days. Enoxaparin for DVT prevention. His is his backup decision maker. Exam Vital Signs (past 8 hours): Oxygen Delivery Method Room Air Oxygen Flow Rate 0 Objective Labs 10/04/25 06:33 10/04/25 06:33 Labs: Laboratory Results - last 24 hr 10/03/25 10/03/25 10/03/25 06:54 08:24 17:02 WBC RBC Hgb Hct MCV MCH MCHC RDW Plt Count Neut % (Auto) Lymph % (Auto) [place] % (Auto) Eos % (Auto) Baso % (Auto) Neut # (Auto) Lymph # (Auto) [place] # (Auto) Eos # (Auto) Baso # (Auto) Sodium 137 Potassium 4.5 Chloride 103 Carbon Dioxide 28 BUN 10 Creatinine 1.05 Estimated GFR > 60 BUN/Creatinine Ratio 9.5 Glucose 111 H D POC Whole Bld Glucose 151 H 121 H Calcium 8.4 Magnesium 2.1 Total Bilirubin 0.6 AST 27 ALT 13 Alkaline Phosphatase 135 H Total Protein 5.7 L Albumin 3.0 L Globulin 2.7 Albumin/Globulin Ratio 1.1 Triglycerides 151 H Cholesterol 94 L LDL Cholesterol, Calc 30 HDL Cholesterol 34 L 10/04/25 06:33 WBC 6.0 RBC 3.43 L Hgb 9.9 L Hct 29.4 L MCV 85.7 MCH 28.8 MCHC 33.6 RDW 15.3 H Plt Count 372 Neut % (Auto) 67.9 Lymph % (Auto) 22.1 L [place] % (Auto) 7.3 Eos % (Auto) 2.0 Baso % (Auto) 0.7 Neut # (Auto) 4000 Lymph # (Auto) 1300 [place] # (Auto) 400 Eos # (Auto) 100 Baso # (Auto) 0 Sodium Potassium Chloride Carbon Dioxide BUN Creatinine Estimated GFR BUN/Creatinine Ratio Glucose POC Whole Bld Glucose Calcium Magnesium Total Bilirubin AST ALT Alkaline Phosphatase Total Protein Albumin Globulin Albumin/Globulin Ratio Triglycerides Cholesterol LDL Cholesterol, Calc HDL Cholesterol PFSH Medical History (Updated 10/03/25 @ 00:54 by Wayne Figueroa DO) Chronic, continuous use of opioids History of colonic polyps Urinary frequency Nocturia Obstructive sleep apnea Chronic low back pain Overweight Type 1 diabetes mellitus with hyperlipidemia GERD without esophagitis Erectile dysfunction 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 Quality VTE Deep Vein Thrombosis/Pulmonary Embolism Present on Admission: No
[2025-10-04 07:43] LABS: Alanine Aminotransferase 13 IU/L (<50); Albumin 3.1 g/dL (3.5-5.0); Albumin Globulin Ratio 1.2 (1.0-2.8); Alkaline Phosphatase 132 U/L (38-126); Blood Urea Nitrogen 9 mg/dL (9-20); Calcium 8.2 mg/dL (8.4-10.2); Carbon Dioxide 27 mmol/L (22-32); Chloride 103 mmol/L (98-107); Estimated Glomerular Filt Rate > 60 mL/min (>60); Globulin 2.6 g/dL (1.7-4.1); Glucose 95 mg/dL (70-99); HEMOLYSIS 19 (0-50); Magnesium 1.9 mg/dL (1.6-2.3); Potassium 4.3 mmol/L (3.4-5.1); Sodium 136 mmol/L (137-145); Total Protein 5.7 g/dL (6.3-8.2)
[2025-10-04 08:22] VITALS: BP 134/74; PULSE 69; RESP 18; TEMP 36.6; O2SAT 96
[2025-10-04] MEDS: PANTOPRAZOLE DR 20 MG TABLET PO ×2 (08:50→20:27)
[2025-10-04] MEDS: ENOXAPARIN 40 MG/0.4 ML SYRINGE SUBCUT (08:51)
--- NOTE | 2025-10-04 09:32 | OT.IPNOTE ---
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 Pt has good understanding for all OT needs. Pt states does not have any OT needs but still wanting to do PT and have home health PT. Discharge OT eval orders.
--- NOTE | 2025-10-04 10:08 | PT.IPTN ---
Current Diagnoses Urinary tract infection, site not specified (10/03/25) Physical Therapy Treatment Note M2 PT-IP Current Condition Start: 10/03/25 12:32 Freq: Status: Active Protocol: Document 10/04/25 09:41 SP (Rec: 10/04/25 10:31 SP Desktop) Physical Therapy Current Condition Current Condition Evaluation Date 10/03/25 Treatment Diagnosis Orthostatic Hypotension, spinal fusion 08/31/25 Onset Date 10/02/25 M3 PT-IP Subjective Start: 10/03/25 12:32 Freq: Status: Active Protocol: Document 10/04/25 09:41 SP (Rec: 10/04/25 10:31 SP Desktop) Subjective Physical Therapy Visit Type Type Treatment Note Visit Start Time 09:41 Visit Stop Time 10:08 Notes Vitals LUE during tx: supine: BP 130/75 HR 78 SaO2 99% on RA seated EOB: 126/84 HR 86 Standing EOB with FWW: 98/60 immediate standing EOB 2 min with FWW: 96/64 with marching/HRs/ mini squat seated 1 min: 109/74 HR 86 seated 3 min: 105/66 seated after 5xSTS (30 sec): 115/71 standing mobility with FWW in room (approx 40 ft): 95/ 62 Number of PATROLLER Visits 1 Physical Therapy Visit Comments Patient Comments Pt agreeable to working with PATROLLER. M4 PT-IP Mobility and Gait Start: 10/03/25 12:32 Freq: Status: Active Protocol: Document 10/04/25 09:41 SP (Rec: 10/04/25 10:31 SP Desktop) PT-Bed Mobility Assessment Rolling Type of Rolling Log Rolling,Roll to Left Level of Assist Standby Assistance Supine to Sit Supine to Sit Contact Guard Assistance,Minimal Assistance,1 Person Assistance,Head of Bed Elevated,Bedrails Scooting Scooting to Edge of Standby Assistance Bed PT-Transfer Assessment Sit to and From Stand Sit to and from Contact Guard Assistance,1 Person Assistance,Use of Stand Upper Extremities Equipment Transfer Assistive Gait Belt,Front Wheeled Walker Device Transfers Transfer Destination Chair Transfer Technique Stand Step Pivot & pt ambulated with FWW Transfer Ability Level of Assist Contact Guard Assistance,1 Person Assistance,Use of Upper Extremities Comments Mobility Comments See vitals above hypotensive with standing activity only, reports of tiring, not dizziness, so caution. Min A trunk righting L SL>sit. CGA STS with FWW, stable stationary balance and light to Min UE WB on FWW contact FWW during LE exercises to assist circulation support. Gait Assessment Gait Gait Assistance Contact Guard Assist,1 Person Assist Required: Distance (Feet) 40 Able to Maintain Yes Weight Bearing Status During Gait Assistive Devices Assistive Device Gait Belt,Front Wheeled Walker Orthotic/Prosthetic No Devices or Brace: Gait Deviations General Gait Pattern Antalgic,Narrow Based Gait Factors Limiting Gait Function Factors Limiting Decreased Activity Tolerance,Decreased Strength Gait Function Comments Gait Comments Pt steady during short distance gait trial to sink and door, c/o tiring on return to chair, assessment hypotensive, cues for upright posture, slight decreased stride. Stair Climbing Assessment Comments Stair Climbing pt has elevator in home, not need to assess stairs. Comments PT-Balance Assessment Sitting Balance and Reactions Static Sitting Normal Balance Ability Dynamic Sitting Good Balance Ability Standing Balance and Reactions Static Standing Good Balance Ability Dynamic Standing Good Balance Ability Device Used FWW M5 PT-IP Objective Assessments Start: 10/03/25 12:32 Freq: Status: Active Protocol: Document 10/03/25 12:32 NW (Rec: 10/03/25 12:53 NW [id number]) Orientation Orientation/Cognition Level of Alertness Alert Orientation Name,Age,Birthday,Month,Date,Year,Day of Week,Place, Situation Language Function No Deficits Noted Ability Safety Awareness Understands Safety Issues Memory Description No Deficits Noted Gross Range of Motion Upper Extremity ROM Assessment Within Functional Limits Lower Extremity ROM Assessment Within Functional Limits Strength Upper Extremity Strength Assessment Within Functional Limits Lower Extremity Strength Assessment Right Impaired Hip SLR 3/5, hip flexion WFL with shortened length Knee WFL Ankle WFL Comments Strength Comments Able to complete bridge without pain with good power production. Good power production upon stance. Sensation Assessment Sensation Gross Sensation WNL Muscle Tone Muscle Tone WNL Yes Other Assessments Other Other Assessments Orthostatics, see above. M6 PT-IP Treatment Start: 10/03/25 12:32 Freq: Status: Active Protocol: Document 10/04/25 09:41 SP (Rec: 10/04/25 10:31 SP Desktop) Physical Therapy Treatment Other Treatments Other Treatment Instruction 5xSTS in 30 sec BUE support on chair arms, Performed standing heel raises, marching, mini squat steady CGA for safety. Report tiring so assessed vitals, hypotensive 96/64. 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 M7 PT-IP Assessment and Plan Start: 10/03/25 12:32 Freq: Status: Active Protocol: Document 10/04/25 09:41 SP (Rec: 10/04/25 10:31 SP Desktop) PT Summary Assessment and Plan Potential Rehabilitation Excellent Potential Status of Condition Evolving at Evaluation Summary Impairments Strength,Transfers,Gait,Activity Tolerance Assessment Summary Rubén is a 70 yr old male admitted for re-occurring UTI and low blood pressure. Pt has had recent spinal fusion from T8-S1 on 08/31/25 and has had a medically complicated hospitalization following. Pt improved BP with sitting but continues become hypotensive during static and gait trial standing activities with fww. Recommending home 11/05 with spouse available vs SNF for safety at this time. Continue to assess hypotensive with OOB mobility with nursing. Suggested limit length of standing with FWW safety. Will continue to assess progress. Provided pt vital assessments. Goals Bed Mobility Goal Independent Transfer Goal Independent Gait Goal Standby Assistance Gait Distance 100 Other Goals Tolerate standing > 3 minutes without drop in blood pressure with FWW at CGA. Days to Meet Goals 5 Frequency of Treatment Frequency Of Once a Day Treatment Treatment Plan Physical Therapy Transfer Training,Gait Training,Therapeutic Exercise, Treatment Plan Balance Retraining,Discharge Planning,Neuromuscular Re- ed Precautions Lumbar Precautions Log Roll,No Twisting,Limit Bending,Lifting Restriction of 10 lbs,Gait Belt above Incisional Area Other Precautions Orthostatic hypotension Weight Bearing Status Weight Bearing Weight Bear as Tolerated Status Recommendations To Nursing Amount of Assist 1 Person Assist Needed Discharge Recommendations PT Discharge Home with 11/05 Assist Available,Home Health,SNF Rehab, Recommendations Home vs SNF Equipment Needed for unsure if pt has FWW for home. Home Before Discharge Transportation Needs Private Vehicle,Wheelchair/Cabulance at Discharge - PT assist 1
[2025-10-04] MEDS: ERTAPENEM 1 GM in SODIUM CHLORIDE 0.9% 100 ML IV (10:46)
[2025-10-04 20:00] VITALS: BP 139/82; PULSE 75; RESP 17; TEMP 36.7; O2SAT 98
[2025-10-04] MEDS: ATORVASTATIN 20 MG TABLET 10 MG PO (20:27)
[2025-10-04] MEDS: CALCIUM CARBONATE 500 MG TAB 1000 MG PO (20:27)
[2025-10-05] MEDS: INSULIN PUMP 1 REQUEST MISC (00:57)
[2025-10-05] MEDS: IBUPROFEN 400 MG TABLET 200 MG PO (06:50)
[2025-10-05] MEDS: ACETAMINOPHEN 325 MG TABLET 975 MG PO (06:51)
--- NOTE | 2025-10-05 07:24 | P.DS_ITS ---
History of Present Illness History of Present Illness Date Patient Seen: 10/05/25 Chief complaint: PC ref, Returning, UTI, postural hypotension Narrative: This is a 61 year old male with hypertension, hyperlipidemia, diabetes mellitus type 2, insulin-dependent and recent spinal surgery from T8-S1 done at [facility] on 08/31/2025 who presented to the ER with orthostatic hypotension symptoms including dizziness and lightheadedness. He has increased symptoms when he is standing or sitting up, despite taking fluids. His orthostatic blood pressure was positive with a drop into the 80's when standing. The patient denies any focal neurodeficit, fever, chest pain, palpitations, shortness of breath, nausea, vomiting, abdominal pain, diarrhea or dysuria. He was seen here last week for E coli UTI/bacteremia, was transferred from the ED to [facility] to rule out a postoperative complication and was discharged home after 4 days of IV antibiotics with 6 more days of oral Bactrim, per his 's report. Laboratory shows WBC 6.8, hemoglobin 10.4, sodium 132, potassium 4.5, creatinine 1.14, lactic acid 2.1, magnesium 1.9, LFT normal, lipase 18, procalcitonin 0.073, UA suggestive of continuing UTI, CT scan of the lumbar spine with a large posterior paravertebral fluid collection with mild rim enhancement with concern for osteomyelitis versus postsurgical changes. Spinal surgery was consulted over the phone and recommended no transfer out due to low suspicious for osteomyelitis. Most likely postoperative changes. In the ER the patient was given Zosyn 4.5 g IV, Zofran 4 mg IV, Dilaudid 1 mg IV and fluid bolus. Discharge Providers Provider Date of admission: 10/03/25 01:12 Discharge Date: 10/05/25 Primary care physician: Marcio Rojo MD Consults: 10/03/25 03:38 Consult to Occupational Therapy Evaluate & Treat Comment: Physician Instructions: Evaluate and treat Consult to Physical Therapy Evaluate & Treat Comment: Physician Instructions: Evaluate and Treat 10/03/25 07:59 Consult to Dietitian, Adult Routine Comment: Reason For Exam: INSULIN PUMP Discharge provider: Anitra Zeng MD Summary Hospital Course Hospital Course: Incompletely treated E.Coli Bacteremia/UTI -Repeat Blood culture, urine culture from 10/02 so far with no growth. -09/21 ED UC/BC with multidrug resistant E.coli -Failure of outpatient Bactrim PO (prescribed per [facility]). Apparently the [facility] blood culture from 09/22 was negative, according to his . -Continue Ertapenem until 10/12 at home with midline in place. Postoperative anemia -hemoglobin 9.9 on 10/04. Follow up with PCP. Dehydration/orthostatic blood pressure. Initially supported with IV fluid and successfully resolved. -continue holding Atenolol and Lisinopril until PCP follow-up Hypertension. Hold lisinopril and Atenolol for now. Follow up with Dr. Rojo in 2 days. H/O Trigeminy -Has been treated with Atenolol for years -Resume Atenolol when standing low blood pressures resolve. Hyperlipidemia. -Restart rosuvastatin GERD. -Restart prontonix Diabetes mellitus, type II with long-term current use of insulin, uncontrolled with hyperglycemia, -ordered HbA1c. Last A1c 6.6 in July. Status at Discharge Cognitive/behavioral status at discharge: oriented Functional status at discharge: independent ambulation Overall status at discharge: patient is progressing back to baseline Time Spent with Patient Time spent: Less than 30 minutes Exam Vital Signs (past 8 hours): Oxygen Delivery Method Room Air Oxygen Flow Rate 0 Narrative Exam Narrative: Alert and oriented x3. No apparent distress. Heart is regular rate and rhythm without murmur. Lungs are clear to auscultation bilaterally. Extremities have no ankle edema. He has no back pain. He is up and walking without Weakness in his legs or significant hypotension/dizziness. Objective Labs 10/05/25 08:12 10/05/25 08:12 Labs: Laboratory Results - last 24 hr 10/04/25 10/04/25 10/04/25 06:33 07:40 11:37 Sodium 136 L Potassium 4.3 Chloride 103 Carbon Dioxide 27 BUN 9 Creatinine 1.06 Estimated GFR > 60 BUN/Creatinine Ratio 8.5 Glucose 95 POC Whole Bld Glucose 90 161 H Calcium 8.2 L Magnesium 1.9 Total Bilirubin 0.9 AST 43 ALT 13 Alkaline Phosphatase 132 H Total Protein 5.7 L Albumin 3.1 L Globulin 2.6 Albumin/Globulin Ratio 1.2 10/04/25 10/04/25 16:52 19:52 Sodium Potassium Chloride Carbon Dioxide BUN Creatinine Estimated GFR BUN/Creatinine Ratio Glucose POC Whole Bld Glucose 125 H 142 H Calcium Magnesium Total Bilirubin AST ALT Alkaline Phosphatase Total Protein Albumin Globulin Albumin/Globulin Ratio PFSH Medical History (Updated 10/03/25 @ 00:54 by Wayne Figueroa DO) Chronic, continuous use of opioids History of colonic polyps Urinary frequency Nocturia Obstructive sleep apnea Chronic low back pain Overweight Type 1 diabetes mellitus with hyperlipidemia GERD without esophagitis Erectile dysfunction 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 Mixed hyperlipidemia Essential hypertension Surgical History Hx laparoscopic cholecystectomy 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 Rojo in 2 days. Discharge orders & Medications Prescriptions: New ertapenem 1 gram recon soln 1 g IV DAILY 7 Days Continued lamotrigine 200 mg tablet 200 mg PO BID rosuvastatin 5 mg tablet 5 mg PO DAILY Qty: 90 3RF insulin aspart U-100 [Novolog PenFill U-100 Insulin] 100 unit/mL cartridge See Rx Instructions .ROUTE .COMPLEX Qty: 20 3RF Rx Instructions: insulin pump (DME) Accu-Chek Guide test strips Strip See Rx Instructions .ROUTE 5XD Qty: 10 Rx Instructions: As directed pantoprazole 20 mg tablet,delayed release (DR/EC) 20 mg PO BID sulfamethoxazole-trimethoprim [Bactrim DS] 800-160 mg tablet 1 tab PO BID Patient Comments: Has another 2 days Rx Instructions: for 10 days. Last day 10/04/25 acetaminophen [Tylenol Extra Strength] 500 mg tablet 1,000 mg PO TID PRN (Reason: pain) polyethylene glycol 3350 [Miralax] 17 gram/dose powder 17 g PO DAILY tadalafil [Cialis] 5 mg tablet 5 mg PO DAILY PRN (Reason: sexual activity) ibuprofen 200 mg tablet 400 mg PO Q6H celecoxib 200 mg capsule 200 mg PO BID Qty: 60 5RF naloxone 4 mg/actuation spray,non-aerosol 1 spray intranasal PRN PRN (Reason: opioid overdose) hydromorphone 2 mg tablet 2 mg PO Q4H PRN (Reason: pain) Discontinued atenolol 25 mg tablet 25 mg PO DAILY Qty: 90 3RF lisinopril 20 mg tablet 20 mg PO BID Qty: 180 3RF Follow up/Referrals: Marcio Rojo MD [Primary Care Provider, Internal Medicine] Visit Report/Discharge Packet Stand Alone Forms: [employer], Patient Portal/API, Stroke Signs & Symptoms, Influenza Vaccine Info, Notice of Privacy Practices, Inpatient vs Outpatient, Pneumococcal Vaccine Info, Pt. Rights & Responsibilities Discharge Data Primary Care Provider: Marcio Rojo V Quality VTE Deep Vein Thrombosis/Pulmonary Embolism Present on Admission: No
[2025-10-05 07:59] VITALS: BP 130/75; PULSE 74; RESP 16; TEMP 36.8; O2SAT 99
[2025-10-05 08:40] LABS: Add Manual Diff / Slide Review NO; Hematocrit 30.6 % (41-53); Hemoglobin 10.3 g/dL (13.5-17.5); Lymphocytes Absolute Auto 1200 /uL (1100-4500); Mean Corpuscular HGB Conc 33.6 % (30-36); Mean Corpuscular Hemoglobin 28.6 PG (26-34); Mean Corpuscular Volume 85.0 fL (80-100); Platelet Count 370 X10^3/uL (150-400)
[2025-10-05 08:54] LABS: Alanine Aminotransferase 13 IU/L (<50); Albumin 3.1 g/dL (3.5-5.0); Albumin Globulin Ratio 1.2 (1.0-2.8); Alkaline Phosphatase 135 U/L (38-126); Blood Urea Nitrogen 10 mg/dL (9-20); Calcium 8.9 mg/dL (8.4-10.2); Carbon Dioxide 30 mmol/L (22-32); Chloride 100 mmol/L (98-107); Estimated Glomerular Filt Rate > 60 mL/min (>60); Globulin 2.6 g/dL (1.7-4.1); Glucose 162 mg/dL (70-99); HEMOLYSIS < 15 (0-50); Magnesium 1.7 mg/dL (1.6-2.3); Potassium 4.5 mmol/L (3.4-5.1); Sodium 135 mmol/L (137-145); Total Protein 5.7 g/dL (6.3-8.2)
[2025-10-05] MEDS: ERTAPENEM 1 GM in SODIUM CHLORIDE 0.9% 100 ML IV (10:05)
[2025-10-05] MEDS: PANTOPRAZOLE DR 20 MG TABLET PO (10:06)
[2025-10-05] MEDS: ENOXAPARIN 40 MG/0.4 ML SYRINGE SUBCUT (10:07)
--- NOTE | 2025-10-05 11:20 | CM.DPC ---
DCP Cont. Reviewed EMR and team rounds for pt's medical status and updates. Pt has been medically cleared to d/c home today. [facility] will be starting with 7-days IV Ertapenem, Dr. Rojo will follow. Sent referral to [facility] for dressing and PICC monitoring. Waiting on confirmation of acceptance and SOC, which should be for tomorrow.
--- NOTE | 2025-10-05 12:12 | PC.NURSE ---
Pt denies discomfort, ROBERTA midline intact. Pt will go home with line fir IV ABO Pt received D/C orders Will plan D/C when ready.
== END 2025-10-05 13:28 | disposition home health service (06) | DRG 690 ==
LOC: ED 10-03 01:10 → AC 10-03 01:13
PROVIDERS: Emergency Medicine; Family Medicine; Admitting Provider Internal Medicine; Emergency Provider Student in an Organized Health Care Education/Training Program; PCP Internal Medicine; Referring Provider Student in an Organized Health Care Education/Training Program; Visit Provider Internal Medicine
DX: N39.0 Urinary tract infection, site not specified (principal); R78.81 Bacteremia; Z16.24 Resistance to multiple antibiotics; E86.0 Dehydration; I10 Essential (primary) hypertension; E78.5 Hyperlipidemia, unspecified; K21.9 Gastro-esophageal reflux disease without esophagitis; E11.65 Type 2 diabetes mellitus with hyperglycemia; I95.1 Orthostatic hypotension; B96.20 Unspecified Escherichia coli [E. coli] as the cause of diseases classified elsewhere; R00.8 Other abnormalities of heart beat; R93.7 Abnormal findings on diagnostic imaging of other parts of musculoskeletal system; D64.89 Other specified anemias; Z79.4 Long term (current) use of insulin; Z98.890 Other specified postprocedural states
CPT/HCPCS: 36415; 36573; 72129; 72132; 80053; 80061; 81001; 82009; 82962; 83605; 83690; 83735; 84145; 85025; 85651; 86140; 87040; 87086; 96365; 96375; 97161; 97530; 99284; J1171; J1335; J1642; J1650; J2405; J2543; J7030; J7050; Q9967